=== PATIENT | female | born 1955 | race African-American/Black ===

== ENCOUNTER 2018-08-20 02:40 | Inpatient (IN) ==
[2018-08-20] MEDS ORDERED: Morphine Inj 4 MG/ML Vial IV.PUSH PRN (06:47)
[2018-08-20] MEDS ORDERED: Bisacodyl 10 MG Supp RECTAL PRN (06:47)
[2018-08-20] MEDS ORDERED: Esmolol 2,500 mg/250 mL Premix 2,500 MG/250 ML BAG IV.CONT PRN (06:58)
[2018-08-20] MEDS ORDERED: Sod Chloride 0.9% Inj 1,000 ML IV.CONT SCH (07:00)
[2018-08-20] MEDS ORDERED: Potassium Phosphate 500 MG Soluble Tablet PO PRN ×2 (07:10)
[2018-08-20] MEDS ORDERED: Potassium Phosphate Inj 30 MMOL in Sodium Chlor 0.9% Inj 250 ML IV.SIG PRN (07:10)
[2018-08-20] MEDS ORDERED: Magnesium Sulfate Inj 2 GM in Sodium Chlor 0.9% Inj 96 ML IV.SIG PRN (07:10)
[2018-08-20] MEDS ORDERED: Potassium Chloride 25 MEQ Effervescent Tablet PO PRN (07:10)
[2018-08-20] MEDS ORDERED: Magnesium Sulfate Inj 4 GM in Sodium Chlor 0.9% Inj 92 ML IV.SIG PRN (07:10)
[2018-08-20] MEDS ORDERED: Magnesium Oxide 400 MG Tablet PO PRN (07:10)
[2018-08-20] MEDS ORDERED: Potassium Chlor 40 mEq Premix 40 MEQ/100 ML PIGGYBACK IV.SIG PRN ×2 (07:10)
[2018-08-20] MEDS ORDERED: Sodium Phosphate Inj 30 MMOL in Sodium Chlor 0.9% Inj 250 ML IV.SIG PRN (07:10)
[2018-08-20] MEDS ORDERED: Potassium Chlor 20 mEq Premix 20 MEQ/100 ML PIGGYBACK IV.SIG PRN (07:10)
[2018-08-20] MEDS ORDERED: Dextrose 50% in Water 50 ML Vial IV.PUSH PRN (07:11)
--- NOTE | 2018-08-20 07:22 | P.HPCC ---
History of Present Illness Service: Critical care medicine Primary Care Physician: No Primary Care Physician Chief Complaint: Shortness of breath, lower extremity edema History of Present Illness: This is a 63-year-old AA female. Date of admission 08/20/2018. Past medical history includes hypothyroidism for the past 3 years and essential hypertension. Patient has been off her methimazole for the past 1 month. Patient presents to [facility] with a 2-3 history of worsening shortness of breath and lower extremity edema. When she arrived, patient was noted to be short of breath with a heart rate in the 200s possibly atrial fib versus SVT and altered mental status. Her thyroid storm score was positive at 50 with tachycardia, pulmonary edema, altered mental status. At that facility, patient did receive 10 mg diltiazem followed by 15 mg diltiazem and 20 mg per propranolol. Afterwards, patient was started on an esmolol drip CT pulmonary revealed no central pulmonary. Left greater than right pleural effusion. Mild pulmonary edema. Her troponin was slightly elevated at 0.12. Potassium is 3.0. Her TSH was less than 0.005. Free T4 is elevated along with free T3. She is currently being treated as thyroid storm. She is transported to [facility]. She will be transitioned to propylthiouracil, Lugol's iodine, hydrochlorothiazide and cholestyramine we will monitor closely in the intensive care unit - Diagnosis (1) Hyperthyroidism (2) Elevated troponin (3) Hypokalemia (4) Total bilirubin, elevated (5) Sinus tachycardia (6) Pulmonary edema (7) Lower extremity edema (8) Acute respiratory failure with hypoxia and hypercapnia Inpatient Certification: I certify that the inpatient services were ordered in accordance with Medicare regulations governing the order. This includes certification that hospital inpatient services are reasonable and necessary and in the case of services not specified as inpatient-only under 42 CFR 419.22(n), that they are appropriately provided as inpatient services in accordance to with the 2-midnight benchmark under 43 CFR 412.3(e) Estimated Total Length of Stay (Days): 5 Plans for Post Hospital Care: Not yet determined Review of Systems Constitutional: Reports anorexia, Reports body ache(s), Reports weight loss, Denies chills, Denies weight gain Eyes: Reports change in vision, Denies blind spots, Denies bulging eyes Ears, Nose, Mouth, and Throat: Reports bad breath, Reports poor balance, Denies abnormal hearing, Denies bleeding gums, Denies hearing loss Cardiovascular: Reports fast heart rate, Reports foot swelling, Reports shortness of breath, Reports shortness of breath with activity, Reports shortness of breath when lying down, Denies chest pain, Denies shortness of breath causing sudden awakening Respiratory: Reports chest congestion, Reports cough, Reports pain on inspiration, Reports shortness of breath, Reports shortness of breath with activity, Denies wheezing Gastrointestinal: Denies abdominal pain, Denies belching, Denies nausea, Denies vomiting Genitourinary: Denies abnormal periods Musculoskeletal: Reports abnormal walking, Denies back pain, Denies stiffness Skin/Breast: Denies bleeding lesions, Denies new lesions, Denies redness Neurologic: Reports lack of coordination, Reports weakness, Denies abnormal hearing, Denies loss of vision, Denies restless legs, Denies tremor(s) Psychiatric: Reports anxiety, Denies depression, Denies hopelessness Endocrine: Reports cold intolerance, Denies excessive sweating Hematologic/Lymphatic: Denies easy bleeding, Denies easy bruising Allergic/Immunologic: Reports GI upset with certain foods PMFSH - History History Provided By: Patient - Medical History Medical History: Medical History (Last Updated 08/20/18 @ 07:13 by Ryan Hansen MD) Essential hypertension Thyroid crisis or storm Hyperthyroidism - Surgical History Surgical History: Surgical History (Last Updated 08/20/18 @ 07:13 by Ryan Hansen MD) No pertinent past surgical history - Family History Family History: Family History (Last Updated 08/20/18 @ 07:14 by Ryan Hansen MD) Mother Heart disease - Tobacco History Second Hand Smoke Exposure: No Tobacco Use In Past 30 Days: No Smoking Status: Never smoker - Alcohol History How Often Do You Have a Drink Containing Alcohol: Never - Substance Use History Substance History: No History of Abuse Medications and Allergies Active Medications: Active Medications Acetaminophen (Tylenol) 650 mg PO Q6H PRN PRN Reason: Fever >101f Hydrocodone Bitart/Acetaminophen ([place] 5/325) 1 tab PO Q4H PRN PRN Reason: PAIN SCALE 1 TO 5 Al Hydroxide/Mg Hydroxide (Milk Of Magnesia Liq) 30 ml PO Q12H PRN PRN Reason: Mild Constipation Albuterol (Albuterol Neb (Prn)) 2.5 mg NEB Q2HR NEB PRN PRN Reason: SHORTNESS OF BREATH/WHEEZING Albuterol (Duoneb Neb (Jenny)) 1 ampul NEB Q4HR NEB JENNY Bisacodyl (Dulcolax Supp) 10 mg RECTAL DAILY PRN PRN Reason: SEVERE CONSITIPATION Chlorhexidine Gluconate (Chlorhexidine 2% Cloth) 3 pack TOPICAL DAILY@0400 JENNY Stop: 08/26/18 03:59 Chlorhexidine Gluconate (Chlorhexidine 2% Cloth) 3 pack TOPICAL DAILY@0400 PRN PRN Reason: Extra cloth needed Stop: 08/26/18 03:59 Cholestyramine Resin (Questran 4 Gm Pkt) 4 gm PO BID JENNY Dextrose (D50w Vial) 50 ml IV.PUSH UNSCH PRN PRN Reason: PER HYPOGLYCEMIA PROTOCOL Furosemide (Lasix Inj) 20 mg IV.PUSH ONCE ONE Stop: 08/20/18 07:13 Glucagon (Glucagon Inj) 1 mg OTHER PRN PRN PRN Reason: for Hypoglycemia Protocol Heparin Sodium (Porcine) (Heparin Inj) 5,000 units SQ Q12H JENNY Hydrocortisone Sodium Succinate (Solucortef Inj) 100 mg IV.PUSH Q8HR JENNY Sodium Chloride (Ns Inj) 1,000 mls @ 84 mls/hr IV.CONT .[id number] JENNY Esmolol HCl (Brevibloc 2,500 Mg/Ns 250 Ml Premix) 2,500 mg in 250 mls @ 8.175 mls/hr IV.CONT TITRATE PRN; Protocol PRN Reason: Per Protocol Magnesium Sulfate 4 gm/ Sodium (Chloride) 100 mls @ 50 mls/hr IV.SIG UNSCH PRN PRN Reason: For Magnesium 0.9 - 1.1 mg/dL Magnesium Sulfate 2 gm/ Sodium (Chloride) 100 mls @ 50 mls/hr IV.SIG UNSCH PRN PRN Reason: For Magnesium 1.2 - 1.6 mg/dL Potassium Chloride (Kcl 40 Meq Premix Inj) 40 meq in 100 mls @ 25 mls/hr IV.SIG Q2H PRN PRN Reason: For Potassium 2.8 - 3.2 mEq/L Potassium Chloride (Kcl 20 Meq Premix Inj) 20 meq in 100 mls @ 50 mls/hr IV.SIG Q2H PRN PRN Reason: For Potassium 3.3 - 3.5 mEq/L Potassium Chloride (Kcl 40 Meq Premix Inj) 40 meq in 100 mls @ 25 mls/hr IV.SIG UNSCH PRN PRN Reason: For Potassium 3.3 - 3.5 mEq/L Potassium Chloride (Kcl 20 Meq Premix Inj) 20 meq in 100 mls @ 50 mls/hr IV.SIG Q2H PRN PRN Reason: For Potassium 2.8 - 3.2 mEq/L Potassium Phosphate 30 mmol/ (Sodium Chloride) 260 mls @ 42 mls/hr IV.SIG UNSCH PRN PRN Reason: SEE LABEL COMMENTS Sodium Phosphate 30 mmol/ (Sodium Chloride) 260 mls @ 42 mls/hr IV.SIG UNSCH PRN PRN Reason: For Phosphorus < 2.5 mg/dL Insulin Aspart (Novolog Insulin Correctional Sugar Inj) 0 unit SQ Q6HR EJNNY; Protocol Iodine/Potassium Iodide (Lugol's (Strong Iodine) 1 Ml) 5 drop PO TID JENNY Lactulose (Lactulose Liq) 30 ml PO DAILY PRN PRN Reason: SEVERE CONSITIPATION Magnesium Oxide (Mag-Ox) 800 mg PO UNSCH PRN PRN Reason: For Magnesium 1.2 - 1.6 mg/dL Morphine Sulfate (Morphine Inj) 2 mg IV.PUSH Q2H PRN PRN Reason: PAIN SCALE 6 TO 10 Nitroglycerin (Nitro-Bid 2% Oint) 2 inch TOPICAL Q6HR PRN PRN Reason: Sbp>165, Dbp>90 Ondansetron HCl (Zofran Inj) 4 mg IV.PUSH Q6H PRN PRN Reason: NAUSEA OR VOMITING Pantoprazole Sodium (Protonix) 40 mg PO DAILY [facility] Potassium Bicarb/Potassium Chloride (K-Lyte Cl Eff) 50 meq PO UNSCH PRN PRN Reason: For Potassium 3.3 - 3.5 mEq/L Potassium Chloride (Klor-Con 10) 30 meq PO BID [facility] Stop: 08/20/18 21:01 Potassium Phosphate (K-Phos Original) 2,000 mg PO Q4H PRN PRN Reason: Phosphorus Less Than 2.5 mg/dL Potassium Phosphate (K-Phos Original) 2,000 mg PO UNSCH PRN PRN Reason: SEE LABEL COMMENTS Propranolol HCl (Inderal) 60 mg PO Q6H [facility] Propylthiouracil (Ptu) 100 mg PO TID JENNY Senna/Docusate Sodium (Paula-Colace) 1 tab PO BID JENNY Sennosides (Senokot) 17.2 mg PO Q12H PRN PRN Reason: Moderate Constipation Sodium Chloride (Ns Flush) 2 ml IV.FLUSH BID JENNY Sodium Chloride (Ns Flush) 2 ml IV.FLUSH PRN PRN PRN Reason: FLUSH AFTER USING IV ACCESS Allergies Allergy/AdvReac Type Severity Reaction Status Date / Time No Known Allergies Allergy Verified 08/20/18 02:57 Home Medications Medication Instructions Recorded Confirmed Type methimazole 5 mg PO DAILY 08/20/18 08/20/18 History Exam Vital signs: Intake & Output 08/19/18 08/20/18 08/20/18 18:59 06:59 18:59 Weight 54.5 kg Other: Weight On Admission 54.5 kg - Constitutional mild distress - Routine HEENT Exam Head: Present: normocephalic, atraumatic Eye: Present: EOMI, PERRL, normal accommodation. Absent: conjunctival icterus ENT: Present: mucous membranes moist - Routine Neck Exam Present: supple, full ROM. Absent: JVD, carotid bruit - Routine Chest/Breast/Axilla Exam Chest wall: Absent: tenderness Breast: Absent: tenderness Axillae: Absent: lymphadenopathy - Routine Respiratory Exam Present: accessory muscle use, rhonchi. Absent: prolonged expiratory phase, distant breath sounds - Routine Cardiovascular Exam Present: RRR, S1, S2. Absent: murmur - Routine Abdominal Exam Present: soft, normoactive bowel sounds. Absent: tenderness - Routine Extremities Exam Present: edema. Absent: cyanosis, clubbing - Routine Skin Exam Present: intact - Routine Neurological Exam Present: alert, oriented X3, CN II-XII intact. Absent: sensory deficit, motor deficit Septic Shock Reassessment Septic shock perfusion: reassessment completed Caprini VTE Risk Assessment Caprini VTE Risk Assessment: Moderate/High Risk (score >= 2) Caprini Risk Assessment Model: Point Value = 1 Point Value = 2 Point Value = 3 Point Value = 5 Age 41-60 Minor surgery BMI > 25 kg/m2 Swollen legs Varicose veins or History of unexplained or recurrent spontaneous Oral contraceptives or hormone replacement Sepsis (< 1 month) Serious lung disease, including pneumonia (< 1 month) Abnormal pulmonary function Acute myocardial infarction Congestive heart failure (< 1 month) History of inflammatory bowel disease Medical patient at bed rest Age 61-74 Arthroscopic surgery Major open surgery (> 45 min) Laparoscopic surgery (> 45 min) Malignancy Confined to bed (> 72 hours) Immobilizing plaster cast Central venous access Age >= 75 History of VTE Family history of VTE Factor V Leiden Prothrombin [id number] Lupus anticoagulant Anticardiolipin antibodies Elevated serum homocysteine Heparin-induced thrombocytopenia Other congenital or acquired thrombophilia Stroke (< 1 month) Elective arthroplasty Hip, pelvis, or leg fracture Acute spinal cord injury (< 1 month) Prophylaxis Regimen: Total Risk Factor Score Risk Level Prophylaxis Regimen 0-1 Low Early ambulation 2 Moderate Order ONE of the following: *Sequential Compression Device (SCD) *Heparin 5000 units SQ BID 3-4 Higher Order ONE of the following medications: *Heparin 5000 units SQ TID *Enoxaparin/Lovenox 40 mg SQ daily (WT < 150 kg, CrCl > 30 mL/min) *Enoxaparin/Lovenox 30 mg SQ daily (WT < 150 kg, CrCl > 10-29 mL/min) *Enoxaparin/Lovenox 30 mg SQ BID (WT < 150 kg, CrCl > 30 mL/min) AND/OR *Sequential Compression Device (SCD) 5 or more Highest Order ONE of the following medications: *Heparin 5000 units SQ TID (Preferred with Epidurals) *Enoxaparin/Lovenox 40 mg SQ daily (WT < 150 kg, CrCl > 30 mL/min) *Enoxaparin/Lovenox 30 mg SQ daily (WT < 150 kg, CrCl > 10-29 mL/min) *Enoxaparin/Lovenox 30 mg SQ BID (WT < 150 kg, CrCl > 30 mL/min) AND *Sequential Compression Device (SCD) Assessment and Plan - Problem List (1) Hyperthyroidism Code(s): E05.90 - Thyrotoxicosis, unspecified without thyrotoxic crisis or storm Status: Acute (2) Elevated troponin Code(s): R74.8 - Abnormal levels of other serum enzymes Status: Acute (3) Hypokalemia Code(s): E87.6 - Hypokalemia Status: Acute (4) Total bilirubin, elevated Code(s): R17 - Unspecified jaundice Status: Acute (5) Sinus tachycardia Code(s): R00.0 - Tachycardia, unspecified Status: Acute (6) Pulmonary edema Code(s): J81.1 - Chronic pulmonary edema Status: Acute (7) Lower extremity edema Code(s): R60.0 - Localized edema Status: Acute (8) Acute respiratory failure with hypoxia and hypercapnia Code(s): J96.01 - Acute respiratory failure with hypoxia; J96.02 - Acute respiratory failure with hypercapnia Status: Acute - Assessment and Plan Plan: Neuro/Psych: Acetaminophen 650 mg p.o. every 6 hours as needed fever Hydrocodone/acetaminophen 5/325 1 tablet every 4 hours as needed pain 1 through 5 Morphine sulfate 2 mg IV every 2 hours as needed pain 6-10 CV: Sinus tachycardia Elevated troponin History of essential hypertension With thyroid femoral start on propranolol 60 mg p.o. every 6 hours and transition off esmolol drip As needed Nitropaste and when heart rate improves hydralazine and labetalol Check 2D echocardiogram Repeat troponin at 1500 hrs. and recheck EKG Elevated troponin likely secondary to strain secondary to tachycardia Resp: Acute respiratory failure secondary to pulmonary edema Currently on partial nonrebreather mask. Wean to maintain saturations greater than equal 92% Incentive spirometry while awake Albuterol/ipratropium aerosols every 4 hours with albuterol aerosols every 2 hours as needed dyspnea CT pulmonary angiogram revealed left greater than right pleural effusion. Pulmonary edema. Possible infiltrate in the right side. Follow-up chest x-ray in a.m. 08/21 GI: Total bilirubin We will place on regular diet. Pantoprazole for GI prophylaxis Docusate sodium/senna 1 tablet twice daily for bowel regimen : Straight cath as needed Endo: Thyroid storm History of hyperthyroidism TSH was less than 0.005. Free T4 was 3.49. Total T3 is pending We will place on propylthiouracil 100 mg 3 times daily with Lugol's iodine 5 drops 3 times daily 1 hour after propylthiouracil given Hydrocortisone 100 mg IV every 8 hours Cholestyramine 4 g by mouth twice daily Monitor symptomatology Renal: Creatinine currently within normal limits Monitor urine output Accurate I's and O's Heme: CBC currently within normal limits No indication for transfusion of blood products at this time ID: Monitor for signs and symptomatology infection Blood cultures x2, UA pending FEN: Acute hypokalemia 60 mEq p.o. potassium chloride given now. ICU electrolyte protocol initiated We will give 3 g IV magnesium currently MSK: Lower extremity edema Bilateral Doppler ultrasound pending Physical therapy evaluate and treat Received 20 mg IV furosemide x1 Access: -Utilize peripheral IV. Central line if indicated Prophylaxis -GI -pantoprazole -DVT-SCD/heparin subcu Level 3 admission H&P: Quality - VTE Deep Vein Thrombosis/Pulmonary Embolism Present on Admission: No
[2018-08-20] MEDS ORDERED: hydrALAZINE HCl Inj 20 MG/ML Vial IV.PUSH PRN (07:37)
[2018-08-20] MEDS ORDERED: Magnesium Sulfate Inj 4 GM in Sodium Chlor 0.9% Inj 92 ML IV.SIG ONE (08:00)
[2018-08-20] MEDS: Senna/Docusate Sodium 8.6/50 MG Tablet PO SCH ×2 (08:14→21:30)
[2018-08-20] MEDS: Heparin - SQ 10,000 UNITS/ML Vial SQ SCH ×2 (08:15→18:12)
[2018-08-20] MEDS: Potassium Chlor 20 mEq Premix 20 MEQ/100 ML PIGGYBACK IV.SIG PRN ×4 (08:16→15:28)
--- NOTE | 2018-08-20 10:07 | US ---
EXAM DATE: 08/20/2018 10:03 AM EDT AGE/SEX: 63 years / Female INDICATIONS: Bilateral leg swelling. CLINICAL DATA: This is the patient's initial encounter. Patient reports that signs and symptoms have been present for 1 day and indicates a pain score of 0/10. MEDICAL/SURGICAL HISTORY: Hypertension. Hyperthyroidism. Thyroid crisis or storm. None. COMPARISON: No prior exams available for comparison. TECHNIQUE: Venous ultrasound of both lower extremities was performed from the inguinal ligament to t he proximal calf. Real-time, color Doppler and spectral tracing, compression and augmentation techni ques were used. FINDINGS: Right Leg: Normal compression of the deep venous system from the inguinal region to the proximal gerry f. No echogenic clot is seen. Normal response of the venous system to augmentation and respiration. Left Leg: Normal compression of the deep venous system from the inguinal region to the proximal calf . No echogenic clot is seen. Normal response of the venous system to augmentation and respiration. Other: None. CONCLUSION: No venous thrombosis is identified within either lower extremity. Electronically signed by: Filippo Rodriguez MD 08/20/2018 10:06 AM EDT
[2018-08-20] MEDS: Propranolol 40 MG Tablet PO SCH ×4 (10:08→21:29)
--- NOTE | 2018-08-20 11:19 | ECHRPT ---
Indication: heart failure CONCLUSIONS Normal left ventricular size. Wall thickness is normal. The left ventricular systolic function is severely reduced with an estimated ejection fraction in th e range of 20-25%. The left atrial size is [id number] dilated. Moderate mitral valve regurgitation. Mild aortic valve regurgitation. The estimated pulmonary arterial pressure is 27 mmHg. There is a small pericardial effusion present. A moderate left sided pleural effusion is noted. BP: / HR: Rhythm: MEASUREMENTS (Male / Female) Normal Values Technical Quality:Very technically difficult study 2D ECHO LV Diastolic Diameter PLAX 4.7 cm 4.2 - 5.9 / 3.9 - 5.3 cm LV Systolic Diameter PLAX 4.4 cm IVS Diastolic Thickness 1.0 cm 0.6 - 1.0 / 0.6 - 0.9 cm LVPW Diastolic Thickness 1.2 cm 0.6 - 1.0 / 0.6 - 0.9 cm LV Relative Wall Thickness 0.5 RV Internal Dim ED PLAX 2.3 cm LVOT Diameter 2.1 cm Aortic Root Diameter 2.6 cm LA Systolic Diameter LX 3.7 cm 3.0 - 4.0 / 2.7 - 3.8 cm LV Ejection Fraction MOD 4C 26.3 % LV Ejection Fraction 4C AL 28.6 % M-MODE Aortic Root Diameter MM 3.2 cm LA Systolic Diameter MM 4.3 cm LA Ao Ratio MM 1.3 AV Cusp Separation MM 1.4 cm DOPPLER AV Peak Velocity 66.9 cm/s AV Peak Gradient 1.8 mmHg LVOT Peak Velocity 40.0 cm/s LVOT Peak Gradient 0.6 mmHg AV Area Cont Eq pk 2.1 cm Mitral E Point Velocity 74.5 cm/s TR Peak Velocity 208.0 cm/s TR Peak Gradient 17.3 mmHg Right Atrial Pressure 10.0 mmHg Pulmonary Artery Systolic Pressu 27.3 mmHg Right Ventricular Systolic Press 27.3 mmHg PV Peak Velocity 59.0 cm/s PV Peak Gradient 1.4 mmHg FINDINGS LEFT VENTRICLE Normal left ventricular size. Wall thickness is normal. The left ventricular systolic function is severely reduced with an estimated ejection fraction in th e range of 20-25%. LEFT ATRIUM The left atrial size is [id number] dilated. MITRAL VALVE Moderate mitral valve regurgitation. AORTIC VALVE Mild aortic valve regurgitation. TRICUSPID VALVE The estimated pulmonary arterial pressure is 27 mmHg. PERICARDIUM There is a small pericardial effusion present. A moderate left sided pleural effusion is noted. Megha Anderson MD, FACC (Electronically Signed) Final Date:20 August 2018 11:18
[2018-08-20] MEDS: IODINE PO SCH ×3 (11:56→18:12)
[2018-08-20] MEDS: [UNRECOGNIZED DRUG - OTHER] PO SCH ×3 (11:56→18:12)
[2018-08-20] MEDS: Insulin NovoLOG Aspart Correctional Sugar Inj SQ SCH ×2 (12:32→17:27)
--- NOTE | 2018-08-20 14:11 | ECG ---
Date Performed: 08/20/2018 Time Performed: 03:10:34 PTAGE: 63 years EKG: SINUS TACHYCARDIA WITH OCCASIONAL SUPRAVENTRICULAR PREMATURE COMPLEXES NONSPECIFIC T-WAVE A BNORMALITY ABNORMAL RHYTHM ECG PREVIOUS TRACING : 08/20/2018 02.53 Compared to previous tracing, Sinus tachycardia has replace d Atrial fibrillation vs atrial tachycardia DOCTOR: Fidel Rubio Interpretating Date/Time 08/20/2018 14:10:54
[2018-08-20] MEDS: Hydrocortisone Sod Succinate 100 MG Vial IV.PUSH SCH ×2 (14:36→21:30)
[2018-08-20] MEDS: Acetaminophen 325 MG Tablet PO PRN (23:28)
[2018-08-20 23:49] LABS: Calcium 8.7 mg/dL (8.5-10.1); Carbon Dioxide 18.4 meq/L (21.0-32.0); Magnesium 2.6 mg/dL (1.5-2.5); Phosphorus 3.7 mg/dL (2.5-4.9)
[2018-08-20 23:56] LABS: Potassium 6.7 meq/L (3.5-5.1)
[2018-08-21] MEDS ORDERED: Sodium Bicarbonate 8.4% Inj 50 MEQ/50 ML Syringe IV.PUSH ONE ×2 (00:05→03:09)
[2018-08-21] MEDS ORDERED: Dextrose 50% in Water 50 ML Vial IV.PUSH ONE (00:07)
[2018-08-21] MEDS: Insulin NovoLOG Aspart Correctional Sugar Inj SQ SCH ×5 (00:21→22:50)
[2018-08-21] MEDS ORDERED: Sodium Polystyrene Sulfonate/Sorbitol Liq 15 GM/60 ML UDC PO ONE (03:08)
[2018-08-21] MEDS: Propranolol 40 MG Tablet PO SCH ×4 (03:24→22:42)
[2018-08-21] MEDS ORDERED: Chlorhexidine Gluconate 2% 1 Pack (2 Cloths) TOPICAL PRN (04:00)
[2018-08-21] MEDS: Chlorhexidine Gluconate 2% 1 Pack (2 Cloths) TOPICAL SCH (04:35)
[2018-08-21 05:09] LABS: Hematocrit 37.9 % (35.0-46.0); Hemoglobin 12.9 gm/dL (11.6-15.3); Mean Corpuscular Hemoglobin 28.5 pg (27.0-34.0); Mean Corpuscular Volume 83.7 fL (80.0-100.0); Mean Platelet Volume 10.6 fL (7.0-11.0); Platelet Count 153 th/mm3 (150-450); Red Blood Count 4.53 mil/mm3 (4.00-5.30); Red Cell Distribution Width 15.1 % (11.6-17.2); White Blood Count 9.8 th/mm3 (4.0-11.0)
[2018-08-21 05:29] LABS: Activated Partial Thrombo Time 24.8 sec (24.3-30.1); INR 1.4 Ratio
[2018-08-21 05:32] LABS: Albumin 3.3 g/dL (3.4-5.0); Anion Gap 9 meq/L (5-15); Aspartate Aminotransferase 165 U/L (15-37); Blood Urea Nitrogen 35 mg/dL (7-18); Calcium 8.3 mg/dL (8.5-10.1); Carbon Dioxide 26.8 meq/L (21.0-32.0); Chloride 108 meq/L (98-107); Glomerular Filtration Rate 45 mL/min (>89); Glucose,Random 217 mg/dL (74-106); Magnesium 2.3 mg/dL (1.5-2.5); Sodium 144 meq/L (136-145)
[2018-08-21 05:37] LABS: Alanine Aminotransferase 155 U/L (10-53); Alkaline Phosphatase 75 U/L (45-117); Phosphorus 3.2 mg/dL (2.5-4.9); Total Protein 6.6 g/dL (6.4-8.2)
[2018-08-21] MEDS: Hydrocortisone Sod Succinate 100 MG Vial IV.PUSH SCH ×3 (05:49→22:42)
[2018-08-21] MEDS: Heparin - SQ 10,000 UNITS/ML Vial SQ SCH ×2 (06:02→18:05)
[2018-08-21 07:37] LABS: Lymphocytes 8 % (9-44)
[2018-08-21 07:38] LABS: Acanthocytes Occ; Ovalocytes 2+
--- NOTE | 2018-08-21 09:05 | P.PNCC ---
Subjective Subjective Remarks/Hospital Course: This is a 63-year-old AA female. Date of admission 08/20/2018. Past medical history includes hypothyroidism for the past 3 years and essential hypertension. Patient has been off her methimazole for the past 1 month. Patient presents to [facility] with a 2-3 history of worsening shortness of breath and lower extremity edema. When she arrived, patient was noted to be short of breath with a heart rate in the 200s possibly atrial fib versus SVT and altered mental status. Her thyroid storm score was positive at 50 with tachycardia, pulmonary edema, altered mental status. At that facility, patient did receive 10 mg diltiazem followed by 15 mg diltiazem and 20 mg per propranolol. Afterwards, patient was started on an esmolol drip CT pulmonary revealed no central pulmonary. Left greater than right pleural effusion. Mild pulmonary edema. Her troponin was slightly elevated at 0.12. Potassium is 3.0. Her TSH was less than 0.005. Free T4 is elevated along with free T3. She is currently being treated as thyroid storm. She is transported to [facility]. She will be transitioned to propylthiouracil, Lugol's iodine, hydrocortisone and cholestyramine we will monitor closely in the intensive care unit SUBJECTIVE: 08/21: Patient's heart rate and blood pressure much improved today. Currently on nasal cannula. Restarting Lugol's iodine. Will monitor closely in the intensive care unit for another couple of days. Hyperkalemia has been treated. Objective Vital Signs / I&O: Vital Signs 08/20/18 10:00 08/20/18 11:00 08/20/18 12:00 Temperature 100.2 F H Pulse Rate 99 H 86 Respiratory Rate 34 H 35 H Blood Pressure 167/94 H 138/93 H 135/82 Pulse Oximetry 100 99 08/20/18 12:03 08/20/18 14:30 08/20/18 14:45 Temperature 99.3 F 99.3 F Pulse Rate 82 75 75 Respiratory Rate 18 32 H Blood Pressure 126/78 Pulse Oximetry 93 L 93 L 08/20/18 15:00 08/20/18 15:15 08/20/18 15:30 Temperature 99.3 F 99.3 F 99.3 F Pulse Rate 75 75 76 Respiratory Rate 31 H 32 H 36 H Blood Pressure 124/81 123/87 123/83 Pulse Oximetry 94 L 93 L 94 L 08/20/18 15:45 08/20/18 16:00 08/20/18 16:15 Temperature 99.3 F 99.5 F 99.5 F Pulse Rate 76 77 75 Respiratory Rate 34 H 33 H Blood Pressure 127/73 132/89 131/86 Pulse Oximetry 93 L 92 L 92 L 08/20/18 16:30 08/20/18 16:45 08/20/18 17:00 Temperature 99.5 F 99.3 F 99.3 F Pulse Rate 77 77 76 Respiratory Rate Blood Pressure 126/95 H 128/90 Pulse Oximetry 93 L 91 L 96 08/20/18 17:01 08/20/18 17:15 08/20/18 17:30 Temperature 99.5 F 99.3 F 99.1 F Pulse Rate 77 77 78 Respiratory Rate Blood Pressure 120/88 134/78 128/84 Pulse Oximetry 92 L 91 L 98 08/20/18 17:45 08/20/18 18:00 08/20/18 18:15 Temperature 99.1 F 99.1 F 99.0 F Pulse Rate 79 79 79 Respiratory Rate Blood Pressure 149/89 H 137/84 144/89 H Pulse Oximetry 92 L 93 L 93 L 08/20/18 18:30 08/20/18 18:45 08/20/18 19:00 Temperature 99.1 F 99.1 F 99.0 F Pulse Rate 81 82 80 Respiratory Rate Blood Pressure 137/79 136/80 134/83 Pulse Oximetry 94 L 94 L 94 L 08/20/18 19:15 08/20/18 19:30 08/20/18 19:45 Temperature 99.1 F 99.5 F 99.5 F Pulse Rate 104 H 81 80 Respiratory Rate Blood Pressure 145/91 H 130/79 143/75 H Pulse Oximetry 94 L 95 94 L 08/20/18 20:00 08/20/18 20:01 08/20/18 20:15 Temperature 99.5 F 99.5 F Pulse Rate 82 81 83 Respiratory Rate 18 Blood Pressure 153/94 H 142/89 H Pulse Oximetry 94 L 93 L 100 08/20/18 20:30 08/20/18 20:45 08/20/18 21:00 Temperature 99.7 F H 99.9 F H 99.9 F H Pulse Rate 84 84 84 Respiratory Rate Blood Pressure 143/95 H 144/90 H 144/87 H Pulse Oximetry 99 94 L 100 08/20/18 21:15 08/20/18 21:30 08/20/18 21:45 Temperature 99.9 F H 100.2 F H 100.0 F H Pulse Rate 94 H 87 85 Respiratory Rate Blood Pressure 142/91 H 141/91 H 139/93 H Pulse Oximetry 94 L 93 L 92 L 08/20/18 22:00 08/20/18 22:15 08/20/18 22:30 Temperature 100.0 F H 100.4 F H 100.0 F H Pulse Rate 87 86 86 Respiratory Rate 32 H 36 H 36 H Blood Pressure 144/95 H 142/94 H 149/95 H Pulse Oximetry 91 L 92 L 94 L 08/20/18 22:45 08/20/18 23:00 08/20/18 23:15 Temperature 100.4 F H 100.8 F H 100.8 F H Pulse Rate 86 85 86 Respiratory Rate 38 H 38 H 38 H Blood Pressure 142/95 H 153/95 H Pulse Oximetry 93 L 92 L 94 L 08/20/18 23:30 08/20/18 23:45 08/21/18 00:00 Temperature 100.8 F H 100.6 F H 100.6 F H Pulse Rate 85 84 82 Respiratory Rate 37 H 18 36 H Blood Pressure 144/95 H 139/92 H 139/93 H Pulse Oximetry 94 L 94 L 93 L 08/21/18 00:15 08/21/18 00:30 08/21/18 00:45 Temperature 100.6 F H 100.2 F H 99.9 F H Pulse Rate 82 80 84 Respiratory Rate 36 H 36 H 47 H Blood Pressure 138/93 H 142/86 H 146/87 H Pulse Oximetry 93 L 94 L 94 L 08/21/18 01:00 08/21/18 01:15 08/21/18 01:22 Temperature 99.5 F 99.3 F Pulse Rate 87 82 81 Respiratory Rate 61 H 24 Blood Pressure 173/92 H 127/65 Pulse Oximetry 94 L 98 08/21/18 01:30 08/21/18 01:45 08/21/18 02:00 Temperature 99.1 F 98.8 F 98.8 F Pulse Rate 80 80 86 Respiratory Rate 21 21 37 H Blood Pressure 125/65 115/62 149/90 H Pulse Oximetry 100 100 99 08/21/18 02:16 08/21/18 02:17 08/21/18 02:30 Temperature 99.0 F 99.0 F 99.1 F Pulse Rate 89 88 91 H Respiratory Rate 25 H 30 H 29 H Blood Pressure 178/107 H 164/97 H 166/99 H Pulse Oximetry 89 L 90 L 92 L 08/21/18 02:45 08/21/18 03:00 08/21/18 03:15 Temperature 99.5 F 99.9 F H 100.0 F H Pulse Rate 90 90 90 Respiratory Rate 31 H 35 H 35 H Blood Pressure 153/87 H 162/96 H 153/94 H Pulse Oximetry 92 L 91 L 100 08/21/18 03:30 08/21/18 03:45 08/21/18 04:00 Temperature 100.2 F H 100.0 F H 99.9 F H Pulse Rate 90 93 H 94 H Respiratory Rate 33 H 30 H 31 H Blood Pressure 152/92 H 155/89 H 162/93 H Pulse Oximetry 96 94 L 96 08/21/18 04:15 08/21/18 04:26 08/21/18 04:30 Temperature 99.7 F H 99.9 F H 99.9 F H Pulse Rate 93 H 89 86 Respiratory Rate 29 H 26 H 26 H Blood Pressure 168/105 H 164/81 H 148/73 H Pulse Oximetry 94 L 98 98 08/21/18 04:45 08/21/18 05:00 08/21/18 05:15 Temperature 99.7 F H 99.7 F H 99.9 F H Pulse Rate 92 H 92 H 91 H Respiratory Rate 40 H 26 H 25 H Blood Pressure 166/91 H 155/85 H 151/82 H Pulse Oximetry 96 97 96 08/21/18 05:30 08/21/18 05:45 08/21/18 06:00 Temperature 99.9 F H 99.9 F H 100.2 F H Pulse Rate 93 H 92 H 97 H Respiratory Rate 24 26 H 35 H Blood Pressure 153/93 H 156/93 H 159/92 H Pulse Oximetry 95 94 L 93 L 08/21/18 06:15 08/21/18 07:00 08/21/18 08:00 Temperature 100.0 F H 100.4 F H 99.7 F H Pulse Rate 96 H 91 H 84 Respiratory Rate 29 H 28 H 20 Blood Pressure 157/96 H 150/89 H 127/71 Pulse Oximetry 94 L 97 100 08/21/18 08:14 Temperature Pulse Rate 83 Respiratory Rate 16 Blood Pressure Pulse Oximetry 99 Intake & Output 08/20/18 08/21/18 08/21/18 18:59 06:59 18:59 Intake Total 1600 / 1600 1300 / 1300 0 / 0 Output Total 500 / 500 0 / 0 Balance 1600 / 1600 800 / 800 0 / 0 Weight 54.5 kg Intake: IV 700 / 700 NS Inj 1,000 ML @ 84 mls/hr IV. 200 / 200 CONT .[id number] VIVEK Rx#:[id number] Magnesium Sulfate Inj 4 GM In 100 / 100 NS Inj 92 ML @ 25 mls/hr IV.SIG ONCE ONE Rx#:[id number] KCl 20 mEq Premix Inj 20 meq In 400 / 400 100 ml @ 50 mls/hr IV.SIG Q2H PRN Rx#:[id number] Oral 900 / 900 600 / 600 0 / 0 Oral Supplement 100 / 100 Other 600 / 600 Output: Urine 0 / 0 Urine Amount (Catheter) 500 / 500 0 / 0 Female External 500 / 500 0 / 0 Other: # Voids 2 # Incontinent Voids 3 0 Date of Last Bowel Movement 08/21/18 # Bowel Movements 0 0 0 # Incontinent Bowel Movements 1 Result Diagrams: 08/21/18 04:40 08/21/18 04:40 Imaging: Venous Doppler Study 08/20/18 00:00 CONCLUSION: No venous thrombosis is identified within either lower extremity. Objective Remarks: GENERAL: 63-year-old [facility] female currently resting in bed in no acute distress on nasal cannula SKIN: Warm and dry. No rash HEAD: Atraumatic. Normocephalic. EYES: Pupils equal and round about 3 members bilaterally reactive. No scleral icterus. No injection or drainage. ENT: No nasal bleeding or discharge. Mucous membranes pink and moist. NECK: Trachea midline. No JVD. CARDIOVASCULAR: Regular rate and rhythm. S1, S2. No S4. RESPIRATORY: Few crackles appreciated bases. No wheezing.. GASTROINTESTINAL: Abdomen soft, non-tender, nondistended. Hepatic and splenic margins not palpable. MUSCULOSKELETAL: Extremities without significant peripheral edema. No obvious deformities. NEUROLOGICAL: Awake and alert. No obvious cranial nerve deficits. Motor grossly within normal limits. Five out of 5 muscle strength in the arms and legs. Normal speech. Assessment and Plan - Problem List (1) Hyperthyroidism Code(s): E05.90 - Thyrotoxicosis, unspecified without thyrotoxic crisis or storm Status: Acute (2) Elevated troponin Code(s): R74.8 - Abnormal levels of other serum enzymes Status: Acute (3) Hypokalemia Code(s): E87.6 - Hypokalemia Status: Resolved (4) Total bilirubin, elevated Code(s): R17 - Unspecified jaundice Status: Acute (5) Sinus tachycardia Code(s): R00.0 - Tachycardia, unspecified Status: Acute (6) Pulmonary edema Code(s): J81.1 - Chronic pulmonary edema Status: Acute (7) Lower extremity edema Code(s): R60.0 - Localized edema Status: Acute (8) Acute respiratory failure with hypoxia and hypercapnia Code(s): J96.01 - Acute respiratory failure with hypoxia; J96.02 - Acute respiratory failure with hypercapnia Status: Acute - Assessment and Plan Plan: Neuro/Psych: Acetaminophen 650 mg p.o. every 6 hours as needed fever Hydrocodone/acetaminophen 5/325 1 tablet every 4 hours as needed pain 1 through 5 Morphine sulfate 2 mg IV every 2 hours as needed pain 6-10 CV: Acute systolic heart failure ejection fraction 20-25% Elevated troponin History of essential hypertension Very small pericardial effusion With thyroid femoral start on propranolol 60 mg p.o. every 6 hours and transition off esmolol drip As needed Nitropaste and when heart rate improves hydralazine and labetalol Check 2D echocardiogram -EF 20-25%. Left atrial enlargement. MRJerome PAP 27 mmHg. Repeat troponin now and recheck EKG Elevated troponin likely secondary to strain secondary to tachycardia Heart failure likely secondary to underlying thyrotoxicosis. Resp: Acute respiratory failure secondary to pulmonary edema/left pleural effusion Currently on nasal cannula. Wean to maintain saturations greater than equal 92% Incentive spirometry while awake Albuterol/ipratropium aerosols every 4 hours with albuterol aerosols every 2 hours as needed dyspnea CT pulmonary angiogram revealed left greater than right pleural effusion. Pulmonary edema. Possible infiltrate in the right side. Follow-up chest x-ray in a.m. 08/22 GI: Total bilirubin Hypoalbuminemia We will place on regular diet. Pantoprazole for GI prophylaxis Docusate sodium/senna 1 tablet twice daily for bowel regimen Liver ultrasound, CPK and hepatitis panel pending Monitor transaminases while on propylthiouracil. : Straight cath as needed Endo: Thyroid storm History of hyperthyroidism TSH was less than 0.005. Free T4 was 3.49. Total T3 was normal at [address] on propylthiouracil 100 mg 3 times daily with Lugol's iodine 5 drops 3 times daily 1 hour after propylthiouracil given Hydrocortisone 100 mg IV every 8 hours Cholestyramine 4 g by mouth twice daily Monitor symptomatology Renal: Acute kidney injury Creatinine currently slowly trending upward. Monitor urine output Accurate I's and O's Recheck creatinine in a.m. 08/22 Heme: CBC currently within normal limits No indication for transfusion of blood products at this time ID: Pyrexia possibly secondary to thyrotoxicosis Monitor for signs and symptomatology infection Blood cultures x2, UA pending FEN: Acute hyperkalemia Hyper magnesium Monitor electrolytes and replace as clinically indicated Remove magnesium products from [facility] MSK: Lower extremity edema Bilateral Doppler ultrasound revealed no underlying deep venous thrombosis Physical therapy evaluate and treat Access: -Utilize peripheral IV. Central line if indicated Prophylaxis -GI -pantoprazole -DVT-SCD/heparin subcu 3 follow-up
[2018-08-21] MEDS: Senna/Docusate Sodium 8.6/50 MG Tablet PO SCH ×2 (09:31→22:42)
[2018-08-21] MEDS: [UNRECOGNIZED DRUG - OTHER] PO SCH ×3 (09:31→18:05)
[2018-08-21] MEDS: IODINE PO SCH ×3 (09:31→18:05)
--- NOTE | 2018-08-21 11:58 | US ---
EXAM DATE: 08/21/2018 11:55 AM EDT AGE/SEX: 63 years / Female INDICATIONS: Abnormal labs. CLINICAL DATA: This is the patient's initial encounter. Patient reports that signs and symptoms have been present for 3 days and indicates a pain score of 4/10. MEDICAL/SURGICAL HISTORY: Hypertension. Hypothyroidism. None. COMPARISON: No prior exams available for comparison. MEASUREMENTS: Liver:__ 16.1 cm. Common Bile Duct:__ 3mm. Right Kidney:__ 8.3 x 4.5 x 4.0 cm. FINDINGS: Liver: Normal echotexture without focal lesion or ductal dilatation. Portal Vein: Hepatopedal flow seen in portal vein. Common Duct: No intraluminal mass or stone visualized. Gallbladder: Demonstrates no wall thickening or pericholecystic fluid. No stones visualized. Pancreas: The visualized portions are within normal limits Right Kidney: Increased echotexture. No mass or hydronephrosis. Other: None. CONCLUSION: 1. Mild increased echogenicity right kidney otherwise negative Electronically signed by: Arturo Guerrier MD 08/21/2018 11:57 AM EDT
[2018-08-21 12:28] LABS: Troponin I 0.78 ng/mL (0.02-0.05)
[2018-08-21 13:28] LABS: Hepatitis A IgM Antibody Nonreactive (Nonreactive); Hepatitits B Surface Antigen Nonreactive (Nonreactive)
--- NOTE | 2018-08-22 04:48 | XR ---
EXAM DATE: 08/22/2018 4:36 AM EDT AGE/SEX: 63 years / Female INDICATIONS: Short of breath. CLINICAL DATA: This is the patient's subsequent encounter. Patient reports that signs and symptoms h ave been present for 2 days and indicates a pain score of 0/10. MEDICAL/SURGICAL HISTORY: Non-responsive. Non-responsive. COMPARISON: [facility], CHEST 1V SINGLE AP, 08/20/2018. . FINDINGS: Bibasilar parenchymal consolidation with small effusions persist and are slightly worse in the interi m. No pneumothorax. Mild cardiomegaly is stable. CONCLUSION: Slightly worse consolidation and small effusions at each lung base. Electronically signed by: Filippo Evans MD 08/22/2018 4:47 AM EDT
[2018-08-22] MEDS: Chlorhexidine Gluconate 2% 1 Pack (2 Cloths) TOPICAL SCH (04:50)
[2018-08-22] MEDS: Propranolol 40 MG Tablet PO SCH ×4 (04:50→21:05)
[2018-08-22] MEDS: Hydrocortisone Sod Succinate 100 MG Vial IV.PUSH SCH ×3 (06:13→21:05)
[2018-08-22] MEDS: Heparin - SQ 10,000 UNITS/ML Vial SQ SCH ×2 (06:13→19:44)
[2018-08-22 06:15] LABS: Baso % (Auto) 0.2 % (0.0-2.0); Hematocrit 38.9 % (35.0-46.0); Hemoglobin 13.3 gm/dL (11.6-15.3); Lymph % (Auto) 9.6 % (9.0-44.0); Mean Corpuscular HGB Conc 34.2 % (32.0-36.0); Mean Corpuscular Hemoglobin 28.7 pg (27.0-34.0); Mean Corpuscular Volume 83.9 fL (80.0-100.0); Mean Platelet Volume 11.1 fL (7.0-11.0); Mono # (Auto) 0.7 th/mm3 (0.0-0.9); Mono % (Auto) 6.1 % (0.0-8.0); Neut # (Auto) 9.1 th/mm3 (1.8-7.7); Neut % (Auto) 84.1 % (16.0-70.0); Platelet Count 168 th/mm3 (150-450); Red Blood Count 4.63 mil/mm3 (4.00-5.30); Red Cell Distribution Width 14.7 % (11.6-17.2); White Blood Count 10.9 th/mm3 (4.0-11.0)
[2018-08-22 06:33] LABS: Alanine Aminotransferase 294 U/L (10-53); Albumin 3.1 g/dL (3.4-5.0); Alkaline Phosphatase 70 U/L (45-117); Anion Gap 10 meq/L (5-15); Aspartate Aminotransferase 226 U/L (15-37); Blood Urea Nitrogen 36 mg/dL (7-18); Calcium 7.8 mg/dL (8.5-10.1); Carbon Dioxide 30.5 meq/L (21.0-32.0); Chloride 105 meq/L (98-107); Glomerular Filtration Rate 53 mL/min (>89); Glucose,Random 125 mg/dL (74-106); Magnesium 2.3 mg/dL (1.5-2.5); Phosphorus 4.9 mg/dL (2.5-4.9); Potassium 4.5 meq/L (3.5-5.1); Sodium 145 meq/L (136-145); Total Protein 6.9 g/dL (6.4-8.2)
[2018-08-22 07:04] LABS: Platelet Estimate Normal (Normal)
[2018-08-22] MEDS: Senna/Docusate Sodium 8.6/50 MG Tablet PO SCH ×2 (09:18→21:05)
[2018-08-22] MEDS: IODINE PO SCH ×3 (09:18→17:11)
[2018-08-22] MEDS: [UNRECOGNIZED DRUG - OTHER] PO SCH ×3 (09:18→17:11)
[2018-08-22] MEDS: Insulin NovoLOG Aspart Correctional Sugar Inj SQ SCH ×4 (13:27→21:04)
--- NOTE | 2018-08-22 15:18 | ECG ---
Date Performed: 08/21/2018 Time Performed: 13:03:53 PTAGE: 63 years EKG: Sinus rhythm POSSIBLE RIGHT VENTRICULAR HYPERTROPHY MODERATE T-WAVE ABNORMALITY, CONSIDER ANTEROLATERAL ISCHEMIA MODERATE T-WAVE ABNORMALITY, CONSIDER INFERIOR ISCHEMIA Since the previous tracing, no significant ch adia noted ABNORMAL ECG PREVIOUS TRACING : 08/20/2018 03.10 DOCTOR: Kev Lr Interpretating Date/Time 08/22/2018 15:01:52
[2018-08-22] MEDS: Acetaminophen 325 MG Tablet PO PRN (15:26)
--- NOTE | 2018-08-22 18:36 | P.CONCA ---
History of Present Illness Primary Care Provider: No Primary Care Physician Chief Complaint: Shortness of breath, lower extremity edema PMFSH - History History Provided By: Patient - Medical History Medical History: Medical History (Last Reviewed 08/20/18 @ 16:25 by Ryan Hansen MD) Essential hypertension Thyroid crisis or storm Hyperthyroidism - Surgical History Surgical History: Surgical History (Last Reviewed 08/20/18 @ 16:25 by Ryan Hansen MD) No pertinent past surgical history - Family History Family History: Family History (Last Reviewed 08/20/18 @ 16:25 by Ryan Hansen MD) Mother Heart disease - Tobacco History Second Hand Smoke Exposure: No Tobacco Use In Past 30 Days: No Smoking Status: Never smoker - Alcohol History How Often Do You Have a Drink Containing Alcohol: Never - Substance Use History Substance History: No History of Abuse Medications and Allergies Active Medications: Active Medications Acetaminophen (Tylenol) 650 mg PO Q6H PRN PRN Reason: Fever >101f Last Admin: 08/22/18 15:26 Dose: 650 mg Hydrocodone Bitart/Acetaminophen ([place] 5/325) 1 tab PO Q4H PRN PRN Reason: PAIN SCALE 1 TO 5 Albuterol (Albuterol Neb (Prn)) 2.5 mg NEB Q2HR NEB PRN PRN Reason: SHORTNESS OF BREATH/WHEEZING Albuterol (Duoneb Neb (Jenny)) 1 ampul NEB Q4HR NEB JENNY Last Admin: 08/22/18 16:38 Dose: 1 ampul Bisacodyl (Dulcolax Supp) 10 mg RECTAL DAILY PRN PRN Reason: SEVERE CONSITIPATION Chlorhexidine Gluconate (Chlorhexidine 2% Cloth) 3 pack TOPICAL DAILY@0400 JENNY Stop: 08/26/18 03:59 Last Admin: 08/22/18 04:50 Dose: 3 pack Chlorhexidine Gluconate (Chlorhexidine 2% Cloth) 3 pack TOPICAL DAILY@0400 PRN PRN Reason: Extra cloth needed Stop: 08/26/18 03:59 Cholestyramine Resin (Questran 4 Gm Pkt) 4 gm PO BID JENNY Last Admin: 08/22/18 09:18 Dose: 4 gm Dextrose (D50w Vial) 50 ml IV.PUSH UNSCH PRN PRN Reason: PER HYPOGLYCEMIA PROTOCOL Glucagon (Glucagon Inj) 1 mg OTHER PRN PRN PRN Reason: for Hypoglycemia Protocol Heparin Sodium (Porcine) (Heparin Inj) 5,000 units SQ Q12H [facility] Last Admin: 08/22/18 06:13 Dose: 5,000 units Hydralazine HCl (Apresoline Inj) 10 mg IV.PUSH Q1H PRN PRN Reason: Sbp>165, Dbp>90 Hydrocortisone Sodium Succinate (Solucortef Inj) 100 mg IV.PUSH Q8HR [facility] Last Admin: 08/22/18 13:27 Dose: 100 mg Esmolol HCl (Brevibloc 2,500 Mg/Ns 250 Ml Premix) 2,500 mg in 250 mls @ 8.175 mls/hr IV.CONT TITRATE PRN; Protocol PRN Reason: Per Protocol Insulin Aspart (Novolog Insulin Correctional Sugar Inj) 0 unit SQ ACHS [facility]; Protocol Last Admin: 08/22/18 17:11 Dose: Not Given Iodine/Potassium Iodide (Lugol's (Strong Iodine) 1 Ml) 5 drop PO TID [facility] Last Admin: 08/22/18 17:11 Dose: 5 drop Labetalol HCl (Trandate Inj) 10 mg IV.PUSH Q1H PRN PRN Reason: Sbp>160, Dbp>90, Hr>65 Lactulose (Lactulose Liq) 30 ml PO DAILY PRN PRN Reason: SEVERE CONSITIPATION Miscellaneous (Pill Splitter) 1 each OTHER UNSCH PRN PRN Reason: SEE LABEL COMMENTS Morphine Sulfate (Morphine Inj) 2 mg IV.PUSH Q2H PRN PRN Reason: PAIN SCALE 6 TO 10 Nitroglycerin (Nitro-Bid 2% Oint) 2 inch TOPICAL Q6HR PRN PRN Reason: Sbp>165, Dbp>90 Ondansetron HCl (Zofran Inj) 4 mg IV.PUSH Q6H PRN PRN Reason: NAUSEA OR VOMITING Pantoprazole Sodium (Protonix) 40 mg PO DAILY [facility] Last Admin: 08/22/18 09:18 Dose: 40 mg Propranolol HCl (Inderal) 40 mg PO Q6H [facility] Last Admin: 08/22/18 15:28 Dose: 40 mg Propylthiouracil (Ptu) 100 mg PO TID [facility] Last Admin: 08/22/18 17:10 Dose: 100 mg Senna/Docusate Sodium (Paula-Colace) 1 tab PO BID [facility] Last Admin: 08/22/18 09:18 Dose: 1 tab Sennosides (Senokot) 17.2 mg PO Q12H PRN PRN Reason: Moderate Constipation Sodium Chloride (Ns Flush) 2 ml IV.FLUSH BID JENNY Last Admin: 08/22/18 09:18 Dose: 2 ml Sodium Chloride (Ns Flush) 2 ml IV.FLUSH PRN PRN PRN Reason: FLUSH AFTER USING IV ACCESS Last Admin: 08/22/18 09:18 Dose: 2 ml Allergies Allergy/AdvReac Type Severity Reaction Status Date / Time No Known Allergies Allergy Verified 08/20/18 02:57 Home Medications Medication Instructions Recorded Confirmed Type methimazole 5 mg PO DAILY 08/20/18 08/20/18 History Exam Vital signs: Vital Signs 08/21/18 18:45 08/21/18 19:00 08/21/18 19:15 Temperature 99.3 F 99.1 F 98.8 F Pulse Rate 87 79 82 Respiratory Rate 24 21 24 Blood Pressure 144/90 H 146/77 H 146/77 H Pulse Oximetry 100 100 100 08/21/18 19:30 08/21/18 19:45 08/21/18 20:00 Temperature 98.8 F 98.6 F 98.2 F Pulse Rate 79 80 78 Respiratory Rate 21 22 21 Blood Pressure 129/66 136/76 142/74 H Pulse Oximetry 100 100 100 08/21/18 20:15 08/21/18 20:30 08/21/18 20:35 Temperature 98.2 F 98.1 F Pulse Rate 75 80 80 Respiratory Rate 22 19 17 Blood Pressure 119/59 L 135/77 Pulse Oximetry 100 100 100 08/21/18 20:45 08/21/18 21:00 08/21/18 21:15 Temperature 98.1 F 98.2 F 98.1 F Pulse Rate 81 84 78 Respiratory Rate 22 21 21 Blood Pressure 146/87 H 147/92 H 137/70 Pulse Oximetry 100 99 100 08/21/18 21:30 08/21/18 21:45 08/21/18 22:00 Temperature 98.1 F 98.2 F 98.1 F Pulse Rate 78 78 77 Respiratory Rate 19 19 19 Blood Pressure 126/60 123/60 119/62 Pulse Oximetry 100 100 100 08/21/18 22:15 08/21/18 22:30 08/21/18 22:45 Temperature 97.9 F 97.7 F 97.9 F Pulse Rate 75 85 92 H Respiratory Rate 18 21 28 H Blood Pressure 123/63 166/97 H 169/102 H Pulse Oximetry 100 100 96 08/21/18 23:00 08/21/18 23:15 08/21/18 23:30 Temperature 98.1 F 98.4 F 98.8 F Pulse Rate 93 H 88 80 Respiratory Rate 24 23 21 Blood Pressure 165/102 H 156/91 H 143/78 H Pulse Oximetry 96 99 100 08/21/18 23:45 08/22/18 00:00 08/22/18 00:07 Temperature 99.1 F 99.1 F Pulse Rate 90 83 88 Respiratory Rate 22 22 19 Blood Pressure 154/86 H 143/84 H Pulse Oximetry 98 100 08/22/18 00:15 08/22/18 00:30 08/22/18 00:45 Temperature 99.1 F 99.1 F 99.3 F Pulse Rate 96 H 87 82 Respiratory Rate 27 H 22 22 Blood Pressure 150/91 H 129/74 131/65 Pulse Oximetry 99 98 100 08/22/18 00:59 08/22/18 01:00 08/22/18 01:15 Temperature 99.3 F 99.3 F 99.1 F Pulse Rate 78 79 83 Respiratory Rate 20 19 22 Blood Pressure 127/62 131/70 Pulse Oximetry 100 99 100 08/22/18 01:30 08/22/18 01:45 08/22/18 02:00 Temperature 99.1 F 99.1 F 99.0 F Pulse Rate 84 89 76 Respiratory Rate 23 22 18 Blood Pressure 133/75 159/100 H 126/66 Pulse Oximetry 100 98 100 08/22/18 02:15 08/22/18 02:30 08/22/18 02:45 Temperature 98.6 F 98.4 F 98.2 F Pulse Rate 74 75 85 Respiratory Rate 19 19 32 H Blood Pressure 127/62 121/64 149/92 H Pulse Oximetry 100 100 97 08/22/18 03:00 08/22/18 03:15 08/22/18 03:30 Temperature 98.2 F 98.2 F 97.9 F Pulse Rate 76 74 74 Respiratory Rate 22 20 18 Blood Pressure 141/79 H 126/61 123/60 Pulse Oximetry 100 100 100 08/22/18 03:45 08/22/18 04:00 08/22/18 04:15 Temperature 97.7 F 97.9 F 97.9 F Pulse Rate 76 89 85 Respiratory Rate 28 H 27 H 22 Blood Pressure 143/78 H 159/98 H 161/98 H Pulse Oximetry 100 97 95 08/22/18 04:30 08/22/18 04:37 08/22/18 04:45 Temperature 98.1 F 98.4 F Pulse Rate 76 78 90 Respiratory Rate 18 22 22 Blood Pressure 142/82 H 168/109 H Pulse Oximetry 100 100 08/22/18 05:00 08/22/18 05:30 08/22/18 06:00 Temperature 98.6 F 98.8 F 98.6 F Pulse Rate 91 H 81 78 Respiratory Rate 24 21 20 Blood Pressure 162/104 H 150/88 H 139/75 Pulse Oximetry 96 99 100 08/22/18 08:00 08/22/18 08:07 08/22/18 08:30 Temperature 97.9 F 97.9 F Pulse Rate 76 75 85 Respiratory Rate 18 16 23 Blood Pressure 139/73 174/106 H Pulse Oximetry 100 99 96 08/22/18 09:00 08/22/18 10:00 08/22/18 10:34 Temperature 97.9 F 97.3 F L Pulse Rate 91 H 92 H 92 H Respiratory Rate 24 26 H Blood Pressure 160/96 H Pulse Oximetry 94 L 98 08/22/18 11:00 08/22/18 11:01 08/22/18 11:53 Temperature 98.1 F 98.1 F Pulse Rate 92 H 91 H 92 H Respiratory Rate 19 23 16 Blood Pressure 153/85 H Pulse Oximetry 96 96 08/22/18 12:00 08/22/18 13:00 08/22/18 14:00 Temperature 98.6 F 98.4 F Pulse Rate 92 H 92 H 91 H Respiratory Rate 31 H 29 H 31 H Blood Pressure 161/102 H 160/96 H 168/111 H Pulse Oximetry 100 97 95 08/22/18 14:07 08/22/18 15:00 08/22/18 16:00 Temperature 97.5 F L Pulse Rate 91 H 92 H 92 H Respiratory Rate 29 H 30 H 31 H Blood Pressure 164/101 H 172/117 H 167/105 H Pulse Oximetry 94 L 97 95 08/22/18 16:38 Temperature Pulse Rate 82 Respiratory Rate 24 Blood Pressure Pulse Oximetry Intake & Output 08/21/18 08/22/18 08/22/18 18:59 06:59 18:59 Intake Total 560 / 560 Output Total 100 / 100 250 / 250 Balance 460 / 460 -250 / -250 Weight 55 kg Intake: Oral 560 / 560 Output: Urine 0 / 0 250 / 250 Urine Amount (Catheter) 100 / 100 Female External 100 / 100 Other: # Voids 1 # Incontinent Voids 0 1 # Bowel Movements 0 0 Results 08/22/18 05:09 08/22/18 05:09 Cardiac Enzymes 08/21/18 08/21/18 08/22/18 Range/Units 04:40 11:27 05:09 AST 165 H 226 H (15-37) U/L Troponin I 0.78 H* D (0.02-0.05) ng/mL Coagulation 08/21/18 Range/Units 04:40 PT 14.0 H (9.8-11.6) sec APTT 24.8 (24.3-30.1) sec CBC 08/21/18 08/22/18 Range/Units 04:40 05:09 WBC 9.8 10.9 (4.0-11.0) th/mm3 RBC 4.53 4.63 (4.00-5.30) mil/mm3 Hgb 12.9 13.3 (11.6-15.3) gm/dL Hct 37.9 38.9 (35.0-46.0) % Plt Count 153 D 168 (150-450) th/mm3 Neut # (Auto) 9.1 H (1.8-7.7) th/mm3 Lymph # (Auto) 1.0 (1.0-4.8) th/mm3 [place] # (Auto) 0.7 (0.0-0.9) th/mm3 Eos # (Auto) 0.0 (0.0-0.4) th/mm3 Baso # (Auto) 0.0 (0.0-0.2) th/mm3 Comprehensive Metabolic Panel 08/20/18 08/21/18 08/21/18 Range/Units 23:10 01:04 04:40 Sodium 140 144 (136-145) meq/L Potassium 6.7 H* D 6.3 H 5.0 D (3.5-5.1) meq/L Chloride 112 H 108 H (98-107) meq/L Carbon Dioxide 18.4 L 26.8 (21.0-32.0) meq/L BUN 30 H 35 H (7-18) mg/dL Creatinine 1.27 H 1.41 H (0.50-1.00) mg/dL Calcium 8.7 8.3 L (8.5-10.1) mg/dL Direct Bilirubin 0.6 H (0.0-0.2) mg/dL Indirect Bilirubin 1.1 H (0.0-0.8) mg/dL AST 165 H (15-37) U/L ALT 155 H (10-53) U/L Alkaline Phosphatase 75 (45-117) U/L Total Protein 6.6 D (6.4-8.2) g/dL Albumin 3.3 L (3.4-5.0) g/dL 08/22/18 Range/Units 05:09 Sodium 145 (136-145) meq/L Potassium 4.5 (3.5-5.1) meq/L Chloride 105 (98-107) meq/L Carbon Dioxide 30.5 (21.0-32.0) meq/L BUN 36 H (7-18) mg/dL Creatinine 1.23 H (0.50-1.00) mg/dL Calcium 7.8 L (8.5-10.1) mg/dL Direct Bilirubin (0.0-0.2) mg/dL Indirect Bilirubin (0.0-0.8) mg/dL AST 226 H (15-37) U/L ALT 294 H (10-53) U/L Alkaline Phosphatase 70 (45-117) U/L Total Protein 6.9 (6.4-8.2) g/dL Albumin 3.1 L (3.4-5.0) g/dL Intake and Output 08/22/18 08/22/18 08/22/18 06:59 14:59 22:59 Output Total 250 / 250 Balance -250 / -250 Output: Urine 250 / 250 Other: # Incontinent Voids 1 # Bowel Movements 0 Weight 55 kg - Imaging and Cardiology Imaging: Impressions Liver Ultrasound 08/21/18 00:00 CONCLUSION: 1. Mild increased echogenicity right kidney otherwise negative Chest X-Ray 08/22/18 06:00 CONCLUSION: Slightly worse consolidation and small effusions at each lung base. Assessment and Plan - Plan Code Status: Thyrotoxicosis Acute Decompensated HF 2/2 to thyrotoxicosis EF 25% ROB IV lasix 20mg IV x 1 continue BB (propanolol for now and change to coreg later) will start MARII-i tommorow propythioracil 100mg TID Hydrocortisone 100mg IV Cholestyramine 4g
[2018-08-22] MEDS: Labetalol HCl Inj 100 MG/20 ML Vial IV.PUSH PRN ×3 (19:07→23:46)
--- NOTE | 2018-08-22 20:06 | MB ---
cc: Jayden Wellington MD,Ned Clayton MD DATE: 08/15/2018 REQUESTING PHYSICIAN: Ned Goldsmith MD REASON FOR CONSULTATION: Shortness of breath. HISTORY OF PRESENT ILLNESS: Ms. Olmstead is a pleasant 63-year-old female who is from [place]. She came over here 2 months ago to be with her son. She has a history of hyperthyroidism. She was taking her methimazole, which she stopped taking about 1 month ago. She has been having worsening of her shortness of breath for the last 3-4 days. Also, has increased swelling in her legs. Did not have any fever, chills or night sweats. She presented to the [facility]. She was found to have a heart rate of around 200. She was given IV diltiazem and propranolol and she was transferred over here. Her chest x-ray shows slightly worse consolidation and small pleural effusion at the lung bases. PAST MEDICAL HISTORY: Significant for a history of hyperthyroidism and edema of the legs. MEDICATIONS: She is currently takin. [place] for pain. 2. Albuterol nebulizer treatment. 3. Esmolol drip. 4. Heparin 5000 q.12 hours. 5. Hydrocortisone 100 mg q.8 hours. 6. Hydralazine IV p.r.n. 7. Labetalol 10 mg p.r.n. 8. Propranolol 40 mg q.6 hours. 9. Protonix 40 mg a day. 10. Propylthiouracil 100 mg 3 times a day. ALLERGIES: NO KNOWN DRUG ALLERGIES. SOCIAL HISTORY: She is . She is a homemaker. No history of smoking or alcohol abuse. FAMILY HISTORY: She has 4 children, 4 sons. REVIEW OF SYSTEMS: She has lost a lot of weight. She has swelling in her legs. No seizure, stroke, epilepsy. No DVT, pulmonary embolism. No malignancy. PHYSICAL EXAMINATION: GENERAL: A thin built elderly female not in any acute distress. VITAL SIGNS: Blood pressure 167/105, heart rate 92, respirations 20, temperature 97.5. HEENT: She has temporal wasting. Pupils are equal and reactive to light. Oral mucosa and nasal mucosa normal. NECK: Supple. JVP not raised. CHEST: She has rales at the bases and has decreased breath sounds at the bases. HEART: S1, S2 normal. ABDOMEN: Soft, nondistended. Bowel sounds are present. EXTREMITIES: 1+ pedal edema. CENTRAL NERVOUS SYSTEM: She is alert and oriented x 3. No focal deficit. IMPRESSION: 1. Hyperthyroidism. 2. Thyrotoxicosis. 3. Hypertension. 4. Congestive heart failure. PLAN: I discussed with the patient. She is being diuresed with IV Lasix. Continue propranolol, propylthiouracil and IV hydrocortisone. Supplemental oxygen and wean oxygen to keep the saturation greater than 90%. She is on subcutaneous heparin for DVT prophylaxis. Further treatment will depend on the course in the hospital. Thank you, Dr. Ned Goldsmith, for this consult. MD ARACELI Chance/ginny , 07:01 PM , 07:10 PM
[2018-08-23] MEDS: Chlorhexidine Gluconate 2% 1 Pack (2 Cloths) TOPICAL SCH (03:09)
[2018-08-23] MEDS: Propranolol 40 MG Tablet PO SCH ×4 (03:09→22:36)
[2018-08-23] MEDS: Hydrocortisone Sod Succinate 100 MG Vial IV.PUSH SCH ×3 (06:10→22:37)
[2018-08-23] MEDS: Heparin - SQ 10,000 UNITS/ML Vial SQ SCH ×2 (06:10→19:13)
[2018-08-23] MEDS: Labetalol HCl Inj 100 MG/20 ML Vial IV.PUSH PRN (07:10)
[2018-08-23] MEDS: Senna/Docusate Sodium 8.6/50 MG Tablet PO SCH ×2 (09:58→22:36)
[2018-08-23] MEDS: IODINE PO SCH ×3 (10:01→19:12)
[2018-08-23] MEDS: [UNRECOGNIZED DRUG - OTHER] PO SCH ×3 (10:01→19:12)
--- NOTE | 2018-08-23 10:28 | P.PNIM ---
Subjective Interval history: This is a 63-year-old AA female. Date of admission 08/20/2018. Past medical history includes hypothyroidism for the past 3 years and essential hypertension. Patient has been off her methimazole for the past 1 month. Patient presents to [facility] with a 2-3 history of worsening shortness of breath and lower extremity edema. When she arrived, patient was noted to be short of breath with a heart rate in the 200s possibly atrial fib versus SVT and altered mental status. Her thyroid storm score was positive at 50 with tachycardia, pulmonary edema, altered mental status. At that facility, patient did receive 10 mg diltiazem followed by 15 mg diltiazem and 20 mg per propranolol. Afterwards, patient was started on an esmolol drip CT pulmonary revealed no central pulmonary. Left greater than right pleural effusion. Mild pulmonary edema. Her troponin was slightly elevated at 0.12. Potassium is 3.0. Her TSH was less than 0.005. Free T4 is elevated along with free T3. She is currently being treated as thyroid storm. She is transported to [facility]. She will be transitioned to propylthiouracil, Lugol's iodine, hydrocortisone and cholestyramine we will monitor closely in the intensive care unit 08/21: Patient's heart rate and blood pressure much improved today. Currently on nasal cannula. Restarting Lugol's iodine. Will monitor closely in the intensive care unit for another couple of days. Hyperkalemia has been treated. 08-23 TRANSFERRED TO OUR CARE/SERVICE MOVE OUT OF ICU DW RN AND PT WILL NEED TO FOLLOW UP AND TAKE MEDS AT DISCHARGE HAS THYROTOXICOSIS ACUTE DECOMPENSATED HEART FAILURE NONCOMPLIANCE ACUTE KIDNEY INJURY AM LABS Physical Exam Vital signs: Vital Signs 08/22/18 10:34 08/22/18 11:00 08/22/18 11:01 Temperature 98.1 F 98.1 F Pulse Rate 92 H 92 H 91 H Respiratory Rate 19 23 Blood Pressure 153/85 H Pulse Oximetry 96 96 08/22/18 11:53 08/22/18 12:00 08/22/18 13:00 Temperature 98.6 F 98.4 F Pulse Rate 92 H 92 H 92 H Respiratory Rate 16 31 H 29 H Blood Pressure 161/102 H 160/96 H Pulse Oximetry 100 97 08/22/18 14:00 08/22/18 14:07 08/22/18 15:00 Temperature Pulse Rate 91 H 91 H 92 H Respiratory Rate 31 H 29 H 30 H Blood Pressure 168/111 H 164/101 H 172/117 H Pulse Oximetry 95 94 L 97 08/22/18 16:00 08/22/18 16:38 08/22/18 17:00 Temperature 97.5 F L Pulse Rate 92 H 82 79 Respiratory Rate 31 H 24 26 H Blood Pressure 167/105 H 147/86 H Pulse Oximetry 95 97 08/22/18 18:00 08/22/18 19:00 08/22/18 19:05 Temperature Pulse Rate 88 89 89 Respiratory Rate 27 H 30 H 34 H Blood Pressure 164/98 H 176/114 H 162/100 H Pulse Oximetry 94 L 95 95 08/22/18 20:00 08/22/18 20:20 08/22/18 21:00 Temperature 97.9 F Pulse Rate 84 89 93 H Respiratory Rate 30 H 16 33 H Blood Pressure 157/92 H Pulse Oximetry 96 94 L 93 L 08/22/18 21:02 08/22/18 21:06 08/22/18 21:30 Temperature Pulse Rate 93 H 90 78 Respiratory Rate 33 H 31 H 25 H Blood Pressure 168/107 H 170/103 H 139/71 Pulse Oximetry 93 L 95 97 08/22/18 22:00 08/22/18 22:30 08/22/18 23:00 Temperature Pulse Rate 76 75 75 Respiratory Rate 22 24 19 Blood Pressure 148/69 H 142/72 H 162/84 H Pulse Oximetry 98 99 99 08/22/18 23:30 08/22/18 23:45 08/23/18 00:00 Temperature Pulse Rate 77 74 74 Respiratory Rate 22 21 20 Blood Pressure 173/88 H 162/88 H 151/74 H Pulse Oximetry 99 99 98 08/23/18 00:47 08/23/18 01:00 08/23/18 02:00 Temperature Pulse Rate 73 73 73 Respiratory Rate 20 19 19 Blood Pressure 155/76 H 132/63 Pulse Oximetry 99 100 08/23/18 03:00 08/23/18 04:00 08/23/18 04:43 Temperature 98.1 F Pulse Rate 71 73 76 Respiratory Rate 18 19 16 Blood Pressure 134/65 158/85 H Pulse Oximetry 100 100 08/23/18 05:00 08/23/18 06:00 08/23/18 06:06 Temperature Pulse Rate 75 84 86 Respiratory Rate 19 22 21 Blood Pressure 163/86 H 164/102 H 172/110 H Pulse Oximetry 99 98 97 08/23/18 06:07 08/23/18 09:46 Temperature Pulse Rate 86 81 Respiratory Rate 24 18 Blood Pressure 160/102 H Pulse Oximetry 96 99 Intake & Output 08/22/18 08/23/18 08/23/18 18:59 06:59 18:59 Intake Total 250 / 250 Output Total 800 / 800 Balance -550 / -550 Weight 55 kg Intake: Oral 250 / 250 Output: Urine 800 / 800 Other: # Incontinent Voids 3 Date of Last Bowel Movement 08/23/18 # Bowel Movements 2 Narrative: GENERAL: 63-year-old [place] female currently SITTING IN CHAIR BY THE BED in no acute distress on nasal cannula SKIN: Warm and dry. No rash HEAD: Atraumatic. Normocephalic. EYES: Pupils equal and round about 3 members bilaterally reactive. No scleral icterus. No injection or drainage. ENT: No nasal bleeding or discharge. Mucous membranes pink and moist. NECK: Trachea midline. No JVD. CARDIOVASCULAR: Regular rate and rhythm. S1, S2. No S4. RESPIRATORY: Few crackles appreciated bases. No wheezing.. GASTROINTESTINAL: Abdomen soft, non-tender, nondistended. Hepatic and splenic margins not palpable. MUSCULOSKELETAL: Extremities without significant peripheral edema. No obvious deformities. NEUROLOGICAL: Awake and alert. No obvious cranial nerve deficits. Motor grossly within normal limits. Five out of 5 muscle strength in the arms and legs. Normal speech. Insight and judgment is good Mood and behavior is somewhat appropriate - Urinary Catheter Management Female External Cath placed during this visit: no Results - Labs CBC & Chem 7: 08/22/18 05:09 08/22/18 05:09 Laboratory Results - last 24 hr 08/22/18 08/22/18 08/23/18 11:35 20:24 09:43 POC Glucose 205 H 151 H 179 H Microbiology 08/20/18 23:10 Blood - Peripheral Aerobic Blood Culture - Preliminary No growth in 2 days 08/20/18 23:10 Blood - Peripheral Anaerobic Blood Culture - Final QNS - See aerobic report. 08/20/18 23:05 Blood - Peripheral Aerobic Blood Culture - Preliminary No growth in 2 days 08/20/18 23:05 Blood - Peripheral Anaerobic Blood Culture - Final QNS - See aerobic report. - Imaging ITS Impressions Venous Doppler Study 08/20/18 00:00 CONCLUSION: No venous thrombosis is identified within either lower extremity. Liver Ultrasound 08/21/18 00:00 CONCLUSION: 1. Mild increased echogenicity right kidney otherwise negative Chest X-Ray 08/22/18 06:00 CONCLUSION: Slightly worse consolidation and small effusions at each lung base. Assessment and Plan - Plan Acute systolic heart failure with ejection fraction of 20-25% Elevated troponin History of essential hypertension Small pericardial effusion -Started on propranolol 60 mg every 6 hours -2D echo showed EF of 20-25% with left atrial enlargement -Seen by cardiology regarding elevated troponins no procedures recommended -Heart failure due to the underlying thyrotoxicosis Acute respiratory failure secondary to pulmonary edema and left pleural effusion -Wean off oxygen -Incentive spirometry -Duo nebs -Right pleural effusion Elevated total bilirubin and hypoalbuminemia Hepatitis panel was negative Monitor LFTs On Protonix Cardiac diet Thyroid storm/history of hyperthyroidism -TSH was less than 0.005 free T4 was 3.49 total T3 was 94 Started on propylthiouracil 100 mg 3 times a day but Lugol's iodine 5 drops 3 times a day On hydrocortisone 100 mg IV every 8 On cholestyramine 4 g twice daily Acute kidney injury/elevated creatinine A.m. labs Noncompliance with medications -We will need to take medications when she leaves the hospital Fevers/pyrexia possibly secondary to thyrotoxicosis Acute hyperkalemia has been improved and hyper magnesium has been Lower extremity edema. -Bilateral Doppler ultrasound shows no deep vein thrombosis Gait instability and weakness continue with physical therapy and Occupational Therapy GI prophylaxis with Protonix DVT prophylaxis with SCDs and q. heparin Transfer out of ICU Code Status: Full code Discussed Condition With: Discussed with RN and patient Discharge Planning: Move out of ICU will need medication We will need to take medications when she leaves the Not ready for discharge yet
[2018-08-23] MEDS: Insulin NovoLOG Aspart Correctional Sugar Inj SQ SCH ×4 (11:13→22:36)
--- NOTE | 2018-08-23 18:36 | P.PNPL ---
Subjective Interval history: 63 YO Female with Hyperthyroidism with sob, pulm odema Breathing much better Weaned to NC Appetite improving Physical Exam Vital signs: Vital Signs 08/22/18 19:00 08/22/18 19:05 08/22/18 20:00 Temperature 97.9 F Pulse Rate 89 89 84 Respiratory Rate 30 H 34 H 30 H Blood Pressure 176/114 H 162/100 H 157/92 H Pulse Oximetry 95 95 96 08/22/18 20:20 08/22/18 21:00 08/22/18 21:02 Temperature Pulse Rate 89 93 H 93 H Respiratory Rate 16 33 H 33 H Blood Pressure 168/107 H Pulse Oximetry 94 L 93 L 93 L 08/22/18 21:06 08/22/18 21:30 08/22/18 22:00 Temperature Pulse Rate 90 78 76 Respiratory Rate 31 H 25 H 22 Blood Pressure 170/103 H 139/71 148/69 H Pulse Oximetry 95 97 98 08/22/18 22:30 08/22/18 23:00 08/22/18 23:30 Temperature Pulse Rate 75 75 77 Respiratory Rate 24 19 22 Blood Pressure 142/72 H 162/84 H 173/88 H Pulse Oximetry 99 99 99 08/22/18 23:45 08/23/18 00:00 08/23/18 00:47 Temperature Pulse Rate 74 74 73 Respiratory Rate 21 20 20 Blood Pressure 162/88 H 151/74 H Pulse Oximetry 99 98 08/23/18 01:00 08/23/18 02:00 08/23/18 03:00 Temperature Pulse Rate 73 73 71 Respiratory Rate 19 19 18 Blood Pressure 155/76 H 132/63 134/65 Pulse Oximetry 99 100 100 08/23/18 04:00 08/23/18 04:43 08/23/18 05:00 Temperature 98.1 F Pulse Rate 73 76 75 Respiratory Rate 19 16 19 Blood Pressure 158/85 H 163/86 H Pulse Oximetry 100 99 08/23/18 06:00 08/23/18 06:06 08/23/18 06:07 Temperature Pulse Rate 84 86 86 Respiratory Rate 22 21 24 Blood Pressure 164/102 H 172/110 H 160/102 H Pulse Oximetry 98 97 96 08/23/18 07:00 08/23/18 08:00 08/23/18 09:00 Temperature 97.7 F Pulse Rate 77 71 85 Respiratory Rate 21 19 21 Blood Pressure 166/93 H 160/79 H 160/87 H Pulse Oximetry 99 100 98 08/23/18 09:46 08/23/18 10:00 08/23/18 11:00 Temperature Pulse Rate 81 80 80 Respiratory Rate 18 Blood Pressure 149/76 H Pulse Oximetry 99 100 08/23/18 12:00 08/23/18 17:05 08/23/18 17:16 Temperature 98.1 F 98 F 98 F Pulse Rate 70 70 89 Respiratory Rate 16 Blood Pressure 151/83 H 169/90 H 162/85 H Pulse Oximetry 100 98 98 Intake & Output 08/22/18 08/23/18 08/23/18 18:59 06:59 18:59 Intake Total 250 / 250 Output Total 800 / 800 175 / 175 Balance -550 / -550 -175 / -175 Weight 55 kg Intake: Oral 250 / 250 Output: Urine 800 / 800 Urine Amount (Catheter) 175 / 175 Female External 175 / 175 Other: # Incontinent Voids 3 Date of Last Bowel Movement 08/23/18 08/23/18 # Bowel Movements 2 1 GENERAL: Thin built female, NAD SKIN: Warm and dry. HEAD: Normocephalic. EYES: No scleral icterus. No injection or drainage. NECK: Supple, trachea midline. No JVD or lymphadenopathy. CARDIOVASCULAR: Regular rate and rhythm without murmurs, gallops, or rubs. RESPIRATORY: Breath sounds equal bilaterally. No accessory muscle use. GASTROINTESTINAL: Abdomen soft, non-tender, nondistended. MUSCULOSKELETAL: No cyanosis, + edema. BACK: Nontender without obvious deformity. No CVA tenderness. - Urinary Catheter Management Female External Cath placed during this visit: no Assessment and Plan - Plan IMPRESSION: 1. Hyperthyroidism. 2. Thyrotoxicosis. 3. Hypertension. 4. Congestive heart failure. PLAN: Supplement 02 Diurease monitor Lytes Hydrocortisone 100 mg q 6 hrs SQ Heparin 5000 IU bid.
[2018-08-24 06:58] LABS: Hematocrit 41.8 % (35.0-46.0); Hemoglobin 13.8 gm/dL (11.6-15.3); Lymph # (Auto) 0.7 th/mm3 (1.0-4.8); Mean Corpuscular HGB Conc 32.9 % (32.0-36.0); Mean Corpuscular Hemoglobin 28.1 pg (27.0-34.0); Mean Corpuscular Volume 85.4 fL (80.0-100.0); Mean Platelet Volume 10.8 fL (7.0-11.0); Mono # (Auto) 0.4 th/mm3 (0.0-0.9); Mono % (Auto) 5.2 % (0.0-8.0); Neut # (Auto) 6.1 th/mm3 (1.8-7.7); Neut % (Auto) 84.8 % (16.0-70.0); Platelet Count 186 th/mm3 (150-450); Red Cell Distribution Width 14.2 % (11.6-17.2); White Blood Count 7.2 th/mm3 (4.0-11.0)
[2018-08-24] MEDS: Chlorhexidine Gluconate 2% 1 Pack (2 Cloths) TOPICAL SCH (07:10)
[2018-08-24] MEDS: Propranolol 40 MG Tablet PO SCH ×4 (07:11→21:12)
[2018-08-24] MEDS: Heparin - SQ 10,000 UNITS/ML Vial SQ SCH ×2 (07:22→18:09)
[2018-08-24] MEDS: Hydrocortisone Sod Succinate 100 MG Vial IV.PUSH SCH ×3 (07:23→21:12)
[2018-08-24 07:24] LABS: Alanine Aminotransferase 281 U/L (10-53); Albumin 3.2 g/dL (3.4-5.0); Anion Gap 14 meq/L (5-15); Aspartate Aminotransferase 80 U/L (15-37); Blood Urea Nitrogen 31 mg/dL (7-18); Calcium 8.3 mg/dL (8.5-10.1); Carbon Dioxide 27.3 meq/L (21.0-32.0); Chloride 102 meq/L (98-107); Glomerular Filtration Rate 57 mL/min (>89); Glucose,Random 113 mg/dL (74-106); Magnesium 2.1 mg/dL (1.5-2.5); Phosphorus 3.2 mg/dL (2.5-4.9); Potassium 3.5 meq/L (3.5-5.1); Sodium 143 meq/L (136-145)
[2018-08-24 07:36] LABS: Alkaline Phosphatase 70 U/L (45-117); Free T4 (Free Thyroxine) 2.29 ng/dL (0.76-1.46)
[2018-08-24] MEDS: Insulin NovoLOG Aspart Correctional Sugar Inj SQ SCH ×4 (09:03→21:13)
[2018-08-24] MEDS: Senna/Docusate Sodium 8.6/50 MG Tablet PO SCH (09:06)
[2018-08-24] MEDS: [UNRECOGNIZED DRUG - OTHER] PO SCH ×3 (09:07→18:08)
[2018-08-24] MEDS: IODINE PO SCH ×3 (09:07→18:08)
--- NOTE | 2018-08-24 12:16 | P.PN ---
Subjective Interval history: Follow-up acute decompensated heart failure secondary to thyrotoxicosis August 24, 2018-patient seen and examined, denies any chest pain or shortness of breath. States she will be compliant with her medicines from now on. Physical Exam Vital signs: Vital Signs 08/23/18 17:05 08/23/18 17:16 08/23/18 20:00 Temperature 98 F 98 F 97.7 F Pulse Rate 70 89 78 Respiratory Rate 18 16 18 Blood Pressure 169/90 H 162/85 H 168/80 H Pulse Oximetry 98 98 98 08/24/18 00:00 08/24/18 00:19 08/24/18 04:00 Temperature 98.0 F 97.7 F Pulse Rate 74 79 83 Respiratory Rate 16 18 Blood Pressure 167/87 H 159/90 H Pulse Oximetry 96 94 L 08/24/18 08:00 Temperature 97.7 F Pulse Rate 80 Respiratory Rate 20 Blood Pressure 178/88 H Pulse Oximetry 98 Intake & Output 08/23/18 08/24/18 08/24/18 18:59 06:59 18:59 Intake Total 240 / 240 120 / 120 Output Total 175 / 175 Balance -175 / -175 240 / 240 120 / 120 Intake: Oral 240 / 240 120 / 120 Output: Urine Amount (Catheter) 175 / 175 Female External 175 / 175 Other: # Voids 2 # Incontinent Voids 2 1 Date of Last Bowel Movement 08/23/18 08/23/18 # Bowel Movements 1 # Incontinent Bowel Movements 1 Narrative: GENERAL: NAD SKIN: Warm and dry. No rash HEAD: Atraumatic. Normocephalic. EYES: Pupils equal and round about 3 members bilaterally reactive. No scleral icterus. No injection or drainage. ENT: No nasal bleeding or discharge. Mucous membranes pink and moist. NECK: Trachea midline. No JVD. CARDIOVASCULAR: Regular rate and rhythm. S1, S2. No S4. RESPIRATORY: Few crackles appreciated bases. No wheezing.. GASTROINTESTINAL: Abdomen soft, non-tender, nondistended. Hepatic and splenic margins not palpable. MUSCULOSKELETAL: Extremities without significant peripheral edema. No obvious deformities. NEUROLOGICAL: Awake and alert. No obvious cranial nerve deficits. Motor grossly within normal limits. Five out of 5 muscle strength in the arms and legs. Normal speech. Insight and judgment is good - Urinary Catheter Management Female External Cath placed during this visit: no Results - Labs CBC & Chem 7: 08/24/18 04:29 08/24/18 04:29 Laboratory Results - last 24 hr 08/23/18 08/24/18 08/24/18 20:44 04:29 04:29 WBC 7.2 RBC 4.90 Hgb 13.8 Hct 41.8 MCV 85.4 MCH 28.1 MCHC 32.9 RDW 14.2 Plt Count 186 MPV 10.8 Neut % (Auto) 84.8 H Lymph % (Auto) 10.0 [place] % (Auto) 5.2 Eos % (Auto) 0.0 Baso % (Auto) 0.0 Neut # (Auto) 6.1 Lymph # (Auto) 0.7 L [place] # (Auto) 0.4 Eos # (Auto) 0.0 Baso # (Auto) 0.0 WBC Differential . Differential Comment Auto diff final Sodium 143 Potassium 3.5 D Chloride 102 Carbon Dioxide 27.3 Anion Gap 14 BUN 31 H Creatinine 1.16 H Estimated GFR 57 L POC Glucose 235 H Random Glucose 113 H Calcium 8.3 L Phosphorus 3.2 D Magnesium 2.1 Total Bilirubin 1.7 H AST 80 H ALT 281 H Alkaline Phosphatase 70 Total Protein 7.0 Albumin 3.2 L TSH Less than 0.005 L Free T4 2.29 H 08/24/18 09:03 WBC RBC Hgb Hct MCV MCH MCHC RDW Plt Count MPV Neut % (Auto) Lymph % (Auto) [place] % (Auto) Eos % (Auto) Baso % (Auto) Neut # (Auto) Lymph # (Auto) [place] # (Auto) Eos # (Auto) Baso # (Auto) WBC Differential Differential Comment Sodium Potassium Chloride Carbon Dioxide Anion Gap BUN Creatinine Estimated GFR POC Glucose 143 H Random Glucose Calcium Phosphorus Magnesium Total Bilirubin AST ALT Alkaline Phosphatase Total Protein Albumin TSH Free T4 Microbiology 08/20/18 23:10 Blood - Peripheral Aerobic Blood Culture - Preliminary No growth in 4 days 08/20/18 23:10 Blood - Peripheral Anaerobic Blood Culture - Final QNS - See aerobic report. 08/20/18 23:05 Blood - Peripheral Aerobic Blood Culture - Preliminary No growth in 4 days 08/20/18 23:05 Blood - Peripheral Anaerobic Blood Culture - Final QNS - See aerobic report. - Procedures none Assessment and Plan - Plan 63-year-old female with Acute compensated systolic heart failure secondary to thyrotoxicosis History of essential hypertension Small pericardial effusion -on propranolol 60 mg every 6 hours will likely switch to Coreg -Likely will start MARII inhibitor -2D echo showed EF of 20-25% with left atrial enlargement -Seen by cardiology but no procedures recommended Acute respiratory failure secondary to pulmonary edema and left pleural effusion -Appreciate input from pulmonary medicine -Incentive spirometry -Duo nebs -Right pleural effusion Thyroid storm/history of hyperthyroidism -TSH was less than 0.005 free T4 was 3.49 total T3 was 94 -Started on propylthiouracil 100 mg 3 times a day but Lugol's iodine 5 drops 3 times a day -On hydrocortisone 100 mg IV every 8 -On cholestyramine 4 g twice daily Noncompliance with medications -Advised on compliance with medical care Fevers/pyrexia possibly secondary to thyrotoxicosis-resolved Acute hyperkalemia -Resolved Lower extremity edema. -Bilateral Doppler ultrasound shows no deep vein thrombosis PT to treat and eval GI prophylaxis with Protonix DVT prophylaxis with SCDs and q. heparin
[2018-08-24 16:20] LABS: Hemoglobin A1c 4.5 % (4.3-6.0)
--- NOTE | 2018-08-24 16:48 | P.PNPL ---
Subjective Interval history: 63 YO Female with Hyperthyroidism with sob, pulm odema Breathing much better Appetite improving Weaned to RA Ambulates Physical Exam Vital signs: Vital Signs 08/23/18 17:05 08/23/18 17:16 08/23/18 20:00 Temperature 98 F 98 F 97.7 F Pulse Rate 70 89 78 Respiratory Rate 18 16 18 Blood Pressure 169/90 H 162/85 H 168/80 H Pulse Oximetry 98 98 98 08/24/18 00:00 08/24/18 00:19 08/24/18 04:00 Temperature 98.0 F 97.7 F Pulse Rate 74 79 83 Respiratory Rate 18 16 18 Blood Pressure 167/87 H 159/90 H Pulse Oximetry 96 94 L 08/24/18 08:00 08/24/18 12:00 08/24/18 15:44 Temperature 97.7 F 98 F 98.3 F Pulse Rate 80 79 77 Respiratory Rate 20 20 20 Blood Pressure 178/88 H 165/92 H 174/98 H Pulse Oximetry 98 98 98 Intake & Output 08/23/18 08/24/18 08/24/18 18:59 06:59 18:59 Intake Total 240 / 240 340 / 340 Output Total 175 / 175 Balance -175 / -175 240 / 240 340 / 340 Intake: Oral 240 / 240 240 / 240 Oral Supplement 100 / 100 Output: Urine Amount (Catheter) 175 / 175 Female External 175 / 175 Other: # Voids 2 # Incontinent Voids 2 1 # Urine Diapers 4 Date of Last Bowel Movement 08/23/18 08/23/18 08/23/18 # Bowel Movements 1 # Incontinent Bowel Movements 1 GENERAL: Thin built elderly female, NAD SKIN: Warm and dry. HEAD: Normocephalic. EYES: No scleral icterus. No injection or drainage. NECK: Supple, trachea midline. No JVD or lymphadenopathy. CARDIOVASCULAR: Regular rate and rhythm without murmurs, gallops, or rubs. RESPIRATORY: Breath sounds equal bilaterally. No accessory muscle use. GASTROINTESTINAL: Abdomen soft, non-tender, nondistended. MUSCULOSKELETAL: No cyanosis, or edema. BACK: Nontender without obvious deformity. No CVA tenderness. - Urinary Catheter Management Female External Cath placed during this visit: no Assessment and Plan - Plan IMPRESSION: 1. Hyperthyroidism. 2. Thyrotoxicosis. 3. Hypertension. 4. Congestive heart failure. PLAN: Diurease monitor Lytes Hydrocortisone 100 mg q 6 hrs SQ Heparin 5000 IU bid. Stable on RA
[2018-08-25] MEDS ORDERED: Propranolol 40 MG Tablet PO ONE (00:16)
[2018-08-25] MEDS: Chlorhexidine Gluconate 2% 1 Pack (2 Cloths) TOPICAL SCH (04:05)
[2018-08-25] MEDS: Propranolol 40 MG Tablet PO SCH ×4 (04:08→21:00)
[2018-08-25] MEDS: Hydrocortisone Sod Succinate 100 MG Vial IV.PUSH SCH ×3 (06:06→21:00)
[2018-08-25] MEDS: Heparin - SQ 10,000 UNITS/ML Vial SQ SCH ×2 (06:06→19:00)
[2018-08-25] MEDS: Insulin NovoLOG Aspart Correctional Sugar Inj SQ SCH ×4 (09:22→20:56)
[2018-08-25] MEDS: IODINE PO SCH ×3 (11:16→17:21)
[2018-08-25] MEDS: [UNRECOGNIZED DRUG - OTHER] PO SCH ×3 (11:16→17:21)
--- NOTE | 2018-08-25 12:59 | P.PN ---
Subjective Interval history: Follow-up acute decompensated heart failure secondary to thyrotoxicosis August 24, 2018-patient seen and examined, denies any chest pain or shortness of breath. States she will be compliant with her medicines from now on. August 25, 2018-patient seen and examined, labile BP however denies any headache, shortness of breath or chest pain. Physical Exam Vital signs: Vital Signs 08/24/18 15:44 08/24/18 20:00 08/25/18 00:00 Temperature 98.3 F 97.8 F 97.2 F L Pulse Rate 77 80 89 Respiratory Rate 20 18 18 Blood Pressure 174/98 H 168/73 H 183/113 H Pulse Oximetry 98 98 95 08/25/18 01:44 08/25/18 04:00 08/25/18 07:56 Temperature 97.9 F 98.2 F Pulse Rate 74 81 89 Respiratory Rate 18 17 18 Blood Pressure 177/86 H 183/101 H 184/109 H Pulse Oximetry 95 96 96 08/25/18 11:47 Temperature 97.4 F L Pulse Rate 76 Respiratory Rate 18 Blood Pressure 159/91 H Pulse Oximetry 93 L Intake & Output 08/24/18 08/25/18 08/25/18 18:59 06:59 18:59 Intake Total 340 / 340 320 / 320 Balance 340 / 340 320 / 320 Weight 59.2 kg Intake: Oral 240 / 240 320 / 320 Oral Supplement 100 / 100 Other: # Voids 2 # Incontinent Voids 1 # Urine Diapers 4 Date of Last Bowel Movement 08/23/18 08/23/18 # Incontinent Bowel Movements 1 Narrative: GENERAL: NAD SKIN: Warm and dry. No rash HEAD: Atraumatic. Normocephalic. EYES: Pupils equal and round about 3 members bilaterally reactive. No scleral icterus. No injection or drainage. ENT: No nasal bleeding or discharge. Mucous membranes pink and moist. NECK: Trachea midline. No JVD. CARDIOVASCULAR: Regular rate and rhythm. S1, S2. No S4. RESPIRATORY: Few crackles appreciated bases. No wheezing.. GASTROINTESTINAL: Abdomen soft, non-tender, nondistended. Hepatic and splenic margins not palpable. MUSCULOSKELETAL: Extremities without significant peripheral edema. No obvious deformities. NEUROLOGICAL: Awake and alert. No obvious cranial nerve deficits. Motor grossly within normal limits. Five out of 5 muscle strength in the arms and legs. Normal speech. Insight and judgment is good - Urinary Catheter Management Female External Cath placed during this visit: no Results - Labs CBC & Chem 7: 08/24/18 04:29 08/24/18 04:29 Laboratory Results - last 24 hr 08/24/18 08/24/18 08/24/18 04:29 16:26 17:11 POC Glucose 156 H 164 H Hemoglobin A1c 4.5 08/24/18 08/24/18 08/25/18 20:43 23:41 07:44 POC Glucose 159 H 104 114 H Hemoglobin A1c 08/25/18 11:42 POC Glucose 248 H Hemoglobin A1c Microbiology 08/20/18 23:10 Blood - Peripheral Aerobic Blood Culture - Final No growth in 5 days 08/20/18 23:10 Blood - Peripheral Anaerobic Blood Culture - Final QNS - See aerobic report. 08/20/18 23:05 Blood - Peripheral Aerobic Blood Culture - Final No growth in 5 days 08/20/18 23:05 Blood - Peripheral Anaerobic Blood Culture - Final QNS - See aerobic report. - Procedures none Assessment and Plan - Plan 63-year-old female with Acute compensated systolic heart failure secondary to thyrotoxicosis History of essential hypertension Small pericardial effusion -on propranolol 40 mg every 6 hours will likely switch to Coreg -Likely will start MARII inhibitor -2D echo showed EF of 20-25% with left atrial enlargement -Seen by cardiology but no procedures recommended Benign labile hypertension Currently on propranolol 40mg QID; will switch clonidine PRN Acute respiratory failure secondary to pulmonary edema and left pleural effusion -Appreciate input from pulmonary medicine -Incentive spirometry -Duo nebs -Right pleural effusion Thyroid storm/history of hyperthyroidism -TSH was less than 0.005 free T4 was 3.49 total T3 was 94 -On propylthiouracil 100 mg 3 times a day but Lugol's iodine 5 drops 3 times a day -On hydrocortisone 100 mg IV every 8; will wean off -On cholestyramine 4 g twice daily Noncompliance with medications -Advised on compliance with medical care Fevers/pyrexia possibly secondary to thyrotoxicosis-resolved Acute hyperkalemia -Resolved Lower extremity edema. -Bilateral Doppler ultrasound shows no deep vein thrombosis PT to treat and eval GI prophylaxis with Protonix DVT prophylaxis with SCDs and q. heparin
--- NOTE | 2018-08-25 19:51 | P.PNPL ---
Subjective Interval history: 63 YO Female with Hyperthyroidism with sob, pulm odema Breathing much better Appetite improving Weaned to RA Ambulates Physical Exam Vital signs: Vital Signs 08/24/18 20:00 08/25/18 00:00 08/25/18 01:44 Temperature 97.8 F 97.2 F L 97.9 F Pulse Rate 80 89 74 Respiratory Rate 18 18 Blood Pressure 168/73 H 183/113 H 177/86 H Pulse Oximetry 98 95 95 08/25/18 04:00 08/25/18 07:56 08/25/18 11:47 Temperature 98.2 F 97.4 F L Pulse Rate 81 89 76 Respiratory Rate 17 18 Blood Pressure 183/101 H 184/109 H 159/91 H Pulse Oximetry 96 96 93 L 08/25/18 15:45 Temperature 97.4 F L Pulse Rate 68 Respiratory Rate 18 Blood Pressure 121/71 Pulse Oximetry 98 Intake & Output 08/25/18 08/25/18 08/26/18 06:59 18:59 06:59 Intake Total 320 / 320 400 / 400 Balance 320 / 320 400 / 400 Weight 59.2 kg Intake: Oral 320 / 320 400 / 400 Other: # Voids 2 Date of Last Bowel Movement 08/23/18 # Bowel Movements 1 GENERAL: Thin built WF,NAD SKIN: Warm and dry. HEAD: Normocephalic. EYES: No scleral icterus. No injection or drainage. NECK: Supple, trachea midline. No JVD or lymphadenopathy. CARDIOVASCULAR: Regular rate and rhythm without murmurs, gallops, or rubs. RESPIRATORY: Breath sounds equal bilaterally. No accessory muscle use. GASTROINTESTINAL: Abdomen soft, non-tender, nondistended. MUSCULOSKELETAL: No cyanosis, or edema. BACK: Nontender without obvious deformity. No CVA tenderness. - Urinary Catheter Management Female External Cath placed during this visit: no Assessment and Plan - Plan IMPRESSION: 1. Hyperthyroidism. 2. Thyrotoxicosis. 3. Hypertension. 4. Congestive heart failure. PLAN: Diurease monitor Lytes DecreaseHydrocortisone 50 mg q 8 hrs SQ Heparin 5000 IU bid. Stable on RA
[2018-08-26] MEDS: Propranolol 40 MG Tablet PO SCH ×4 (04:21→21:16)
[2018-08-26] MEDS: Heparin - SQ 10,000 UNITS/ML Vial SQ SCH ×2 (06:26→18:33)
[2018-08-26] MEDS: Hydrocortisone Sod Succinate 100 MG Vial IV.PUSH SCH (06:26)
[2018-08-26 08:15] LABS: Baso % (Auto) 0.4 % (0.0-2.0); Eos % (Auto) 0.2 % (0.0-4.0); Hematocrit 39.7 % (35.0-46.0); Hemoglobin 13.1 gm/dL (11.6-15.3); Lymph # (Auto) 0.3 th/mm3 (1.0-4.8); Lymph % (Auto) 4.1 % (9.0-44.0); Mean Corpuscular HGB Conc 32.9 % (32.0-36.0); Mean Corpuscular Hemoglobin 28.5 pg (27.0-34.0); Mean Corpuscular Volume 86.5 fL (80.0-100.0); Mean Platelet Volume 11.2 fL (7.0-11.0); Mono # (Auto) 0.8 th/mm3 (0.0-0.9); Mono % (Auto) 11.3 % (0.0-8.0); Neut # (Auto) 5.9 th/mm3 (1.8-7.7); Platelet Count 181 th/mm3 (150-450); Red Blood Count 4.59 mil/mm3 (4.00-5.30); Red Cell Distribution Width 14.2 % (11.6-17.2)
[2018-08-26 08:19] LABS: Alanine Aminotransferase 124 U/L (10-53); Albumin 2.6 g/dL (3.4-5.0); Anion Gap 8 meq/L (5-15); Aspartate Aminotransferase 22 U/L (15-37); Blood Urea Nitrogen 24 mg/dL (7-18); Calcium 7.6 mg/dL (8.5-10.1); Carbon Dioxide 28.6 meq/L (21.0-32.0); Chloride 105 meq/L (98-107); Glomerular Filtration Rate 55 mL/min (>89); Glucose,Random 120 mg/dL (74-106); Potassium 3.7 meq/L (3.5-5.1); Sodium 142 meq/L (136-145)
[2018-08-26 08:29] LABS: Alkaline Phosphatase 54 U/L (45-117); Free T4 (Free Thyroxine) 1.68 ng/dL (0.76-1.46); Total Protein 5.6 g/dL (6.4-8.2)
[2018-08-26] MEDS: [UNRECOGNIZED DRUG - OTHER] PO SCH ×3 (08:49→17:44)
[2018-08-26] MEDS: IODINE PO SCH ×3 (08:49→17:44)
[2018-08-26] MEDS ORDERED: Hydrocortisone Sod Succinate 100 MG Vial IV.PUSH SCH (09:00)
[2018-08-26] MEDS: Insulin NovoLOG Aspart Correctional Sugar Inj SQ SCH ×3 (11:37→18:52)
--- NOTE | 2018-08-26 14:06 | P.PN ---
Subjective Interval history: Follow-up acute decompensated heart failure secondary to thyrotoxicosis August 24, 2018-patient seen and examined, denies any chest pain or shortness of breath. States she will be compliant with her medicines from now on. August 25, 2018-patient seen and examined, labile BP however denies any headache, shortness of breath or chest pain. August 26, 2018-patient seen and examined, stable and no complaint Physical Exam Vital signs: Vital Signs 08/25/18 15:45 08/25/18 20:00 08/26/18 00:00 Temperature 97.4 F L 97.4 F L 98.5 F Pulse Rate 68 79 78 Respiratory Rate Blood Pressure 121/71 149/74 H 154/80 H Pulse Oximetry 98 99 97 08/26/18 04:00 08/26/18 08:00 08/26/18 12:00 Temperature 97.6 F 98 F 97.4 F L Pulse Rate 75 72 69 Respiratory Rate Blood Pressure 167/88 H 153/80 H 148/73 H Pulse Oximetry 98 98 99 Intake & Output 08/25/18 08/26/18 08/26/18 18:59 06:59 18:59 Intake Total 400 / 400 Balance 400 / 400 Weight 59.3 kg Intake: Oral 400 / 400 Other: # Voids 1 # Incontinent Voids 2 Date of Last Bowel Movement 08/24/18 08/24/18 # Bowel Movements 1 Narrative: GENERAL: NAD SKIN: Warm and dry. No rash HEAD: Atraumatic. Normocephalic. EYES: Pupils equal and round about 3 members bilaterally reactive. No scleral icterus. No injection or drainage. ENT: No nasal bleeding or discharge. Mucous membranes pink and moist. NECK: Trachea midline. No JVD. CARDIOVASCULAR: Regular rate and rhythm. S1, S2. No S4. RESPIRATORY: Few crackles appreciated bases. No wheezing.. GASTROINTESTINAL: Abdomen soft, non-tender, nondistended. Hepatic and splenic margins not palpable. MUSCULOSKELETAL: Extremities without significant peripheral edema. No obvious deformities. NEUROLOGICAL: Awake and alert. No obvious cranial nerve deficits. Motor grossly within normal limits. Five out of 5 muscle strength in the arms and legs. Normal speech. Insight and judgment is good - Urinary Catheter Management Female External Cath placed during this visit: no Results - Labs CBC & Chem 7: 08/26/18 06:58 08/26/18 06:58 Laboratory Results - last 24 hr 08/25/18 08/25/18 08/26/18 16:41 20:50 06:58 WBC 7.0 RBC 4.59 Hgb 13.1 Hct 39.7 MCV 86.5 MCH 28.5 MCHC 32.9 RDW 14.2 Plt Count 181 MPV 11.2 H Neut % (Auto) 84.0 H Lymph % (Auto) 4.1 L [place] % (Auto) 11.3 H Eos % (Auto) 0.2 Baso % (Auto) 0.4 Neut # (Auto) 5.9 Lymph # (Auto) 0.3 L [place] # (Auto) 0.8 Eos # (Auto) 0.0 Baso # (Auto) 0.0 WBC Differential . Differential Comment Auto diff final Sodium Potassium Chloride Carbon Dioxide Anion Gap BUN Creatinine Estimated GFR POC Glucose 164 H 273 H Random Glucose Calcium Total Bilirubin AST ALT Alkaline Phosphatase Total Protein Albumin TSH Free T4 08/26/18 08/26/18 08/26/18 06:58 08:46 11:54 WBC RBC Hgb Hct MCV MCH MCHC RDW Plt Count MPV Neut % (Auto) Lymph % (Auto) [place] % (Auto) Eos % (Auto) Baso % (Auto) Neut # (Auto) Lymph # (Auto) [place] # (Auto) Eos # (Auto) Baso # (Auto) WBC Differential Differential Comment Sodium 142 Potassium 3.7 Chloride 105 Carbon Dioxide 28.6 Anion Gap 8 BUN 24 H Creatinine 1.20 H Estimated GFR 55 L POC Glucose 130 H 232 H Random Glucose 120 H Calcium 7.6 L Total Bilirubin 2.0 H AST 22 ALT 124 H Alkaline Phosphatase 54 Total Protein 5.6 L D Albumin 2.6 L TSH Less than 0.005 L Free T4 1.68 H Microbiology 08/20/18 23:10 Blood - Peripheral Aerobic Blood Culture - Final No growth in 5 days 08/20/18 23:10 Blood - Peripheral Anaerobic Blood Culture - Final QNS - See aerobic report. 08/20/18 23:05 Blood - Peripheral Aerobic Blood Culture - Final No growth in 5 days 08/20/18 23:05 Blood - Peripheral Anaerobic Blood Culture - Final QNS - See aerobic report. - Procedures none Assessment and Plan - Plan 63-year-old female with Acute compensated systolic heart failure secondary to thyrotoxicosis History of essential hypertension Small pericardial effusion -on propranolol 40 mg every 6 hours -Likely will start MARII inhibitor -2D echo showed EF of 20-25% with left atrial enlargement -Seen by cardiology but no procedures recommended Benign labile hypertension-Improving Currently on propranolol 40mg QID clonidine PRN Acute respiratory failure secondary to pulmonary edema and left pleural effusion -Appreciate input from pulmonary medicine -Incentive spirometry -Duo nebs -Right pleural effusion Thyroid storm/history of hyperthyroidism -TSH was less than 0.005 free T4 was 3.49 total T3 was 94. Repeat labs reviewed this AM -On propylthiouracil 100 mg 3 times a day but Lugol's iodine 5 drops 3 times a day. Will Start MTU tomorrow 08/26 and d/c PTU as well as Lugol -On hydrocortisone 100 mg IV every 24; will d/c after today's dose -On cholestyramine 4 g twice daily Noncompliance with medications -Advised on compliance with medical care Fevers/pyrexia possibly secondary to thyrotoxicosis-resolved Acute hyperkalemia -Resolved Lower extremity edema. -Bilateral Doppler ultrasound shows no deep vein thrombosis PT to treat and eval GI prophylaxis with Protonix DVT prophylaxis with SCDs and q. heparin
--- NOTE | 2018-08-26 18:30 | P.PNPL ---
Subjective Interval history: 63 YO Female with Hyperthyroidism with sob, pulm odema Breathing much better Appetite improving Weaned to RA Ambulates No new complaint Physical Exam Vital signs: Vital Signs 08/25/18 20:00 08/26/18 00:00 08/26/18 04:00 Temperature 97.4 F L 98.5 F 97.6 F Pulse Rate 79 78 75 Respiratory Rate Blood Pressure 149/74 H 154/80 H 167/88 H Pulse Oximetry 99 97 98 08/26/18 08:00 08/26/18 12:00 08/26/18 16:00 Temperature 98 F 97.4 F L 98.5 F Pulse Rate 72 69 71 Respiratory Rate Blood Pressure 153/80 H 148/73 H 156/83 H Pulse Oximetry 98 99 98 Intake & Output 08/25/18 08/26/18 08/26/18 18:59 06:59 18:59 Intake Total 400 / 400 840 / 840 Balance 400 / 400 840 / 840 Weight 59.3 kg Intake: Oral 400 / 400 840 / 840 Other: # Voids 1 1 # Incontinent Voids 2 # Urine Diapers 1 Date of Last Bowel Movement 08/24/18 08/24/18 # Bowel Movements 1 GENERAL: Thin built elderly female, NAD SKIN: Warm and dry. HEAD: Normocephalic. EYES: No scleral icterus. No injection or drainage. NECK: Supple, trachea midline. No JVD or lymphadenopathy. CARDIOVASCULAR: Regular rate and rhythm without murmurs, gallops, or rubs. RESPIRATORY: Breath sounds equal bilaterally. No accessory muscle use. GASTROINTESTINAL: Abdomen soft, non-tender, nondistended. MUSCULOSKELETAL: No cyanosis, or edema. BACK: Nontender without obvious deformity. No CVA tenderness. - Urinary Catheter Management Female External Cath placed during this visit: no Assessment and Plan - Plan IMPRESSION: 1. Hyperthyroidism. 2. Thyrotoxicosis. 3. Hypertension. 4. Congestive heart failure. PLAN: Diurease monitor Lytes DecreaseHydrocortisone 50 mg q 8 hrs SQ Heparin 5000 IU bid. Stable on RA DC plans underway
[2018-08-27] MEDS: Insulin NovoLOG Aspart Correctional Sugar Inj SQ SCH ×3 (00:38→14:43)
[2018-08-27] MEDS: Propranolol 40 MG Tablet PO SCH ×2 (04:29→14:42)
[2018-08-27] MEDS: Heparin - SQ 10,000 UNITS/ML Vial SQ SCH (06:23)
--- NOTE | 2018-08-27 11:42 | P.PN ---
Subjective Interval history: Follow-up acute decompensated heart failure secondary to thyrotoxicosis August 24, 2018-patient seen and examined, denies any chest pain or shortness of breath. States she will be compliant with her medicines from now on. August 25, 2018-patient seen and examined, labile BP however denies any headache, shortness of breath or chest pain. August 26, 2018-patient seen and examined, stable and no complaint August 27, 2018-patient seen and examined, denies any shortness of breath or chest pain. Looking for discharge home today. Physical Exam Vital signs: Vital Signs 08/26/18 16:00 08/26/18 20:00 08/27/18 00:00 Temperature 98.5 F 97.9 F 98.1 F Pulse Rate 71 75 67 Respiratory Rate 18 18 Blood Pressure 156/83 H 166/81 H 163/78 H Pulse Oximetry 98 99 98 08/27/18 04:00 08/27/18 07:48 Temperature 98.1 F 97.4 F L Pulse Rate 71 70 Respiratory Rate 18 Blood Pressure 178/94 H 153/89 H Pulse Oximetry 98 99 Intake & Output 08/26/18 08/27/18 08/27/18 19:59 06:59 18:59 Intake Total Balance Intake: Oral Other: # Voids # Urine Diapers Date of Last Bowel Movement 08/24/18 Narrative: GENERAL: NAD SKIN: Warm and dry. No rash HEAD: Atraumatic. Normocephalic. EYES: Pupils equal and round about 3 members bilaterally reactive. No scleral icterus. No injection or drainage. ENT: No nasal bleeding or discharge. Mucous membranes pink and moist. NECK: Trachea midline. No JVD. CARDIOVASCULAR: Regular rate and rhythm. S1, S2. No S4. RESPIRATORY: Few crackles appreciated bases. No wheezing.. GASTROINTESTINAL: Abdomen soft, non-tender, nondistended. Hepatic and splenic margins not palpable. MUSCULOSKELETAL: Extremities without significant peripheral edema. No obvious deformities. NEUROLOGICAL: Awake and alert. No obvious cranial nerve deficits. Motor grossly within normal limits. Five out of 5 muscle strength in the arms and legs. Normal speech. Insight and judgment is good - Urinary Catheter Management Female External Cath placed during this visit: no Results - Labs CBC & Chem 7: 08/26/18 06:58 08/26/18 06:58 Laboratory Results - last 24 hr 08/26/18 08/27/18 08/27/18 17:42 00:27 06:24 POC Glucose 168 H 138 H 107 08/27/18 07:44 POC Glucose 113 H - Procedures none Assessment and Plan - Plan 63-year-old female with Acute compensated systolic heart failure secondary to thyrotoxicosis History of essential hypertension Small pericardial effusion -on propranolol 40 mg every 6 hours -2D echo showed EF of 20-25% with left atrial enlargement -Seen by cardiology but no procedures recommended Benign labile hypertension-Improving Currently on propranolol 40mg QID clonidine PRN Acute respiratory failure secondary to pulmonary edema and left pleural effusion -Appreciate input from pulmonary medicine -Incentive spirometry -Duo nebs -Right pleural effusion Thyroid storm/history of hyperthyroidism -TSH was less than 0.005 free T4 was 3.49 total T3 was 94. Repeat labs reviewed this AM -s/p propylthiouracil 100 mg 3 times a day , Lugol's iodine 5 drops 3 times a day. Now on MTU 10mg daily -d/c hydrocortisone 100 mg IV every 24 -On cholestyramine 4 g twice daily Noncompliance with medications -Advised on compliance with medical care Fevers/pyrexia possibly secondary to thyrotoxicosis-resolved Acute hyperkalemia -Resolved Lower extremity edema. -Bilateral Doppler ultrasound shows no deep vein thrombosis PT to treat and eval GI prophylaxis with Protonix DVT prophylaxis with SCDs and q. heparin
--- NOTE | 2018-08-27 11:43 | P.DS ---
Date of admission: 08/20/18 06:20 Primary care physician: No Primary Care Physician Brief History from admission: This is a 63-year-old AA female. Date of admission 08/20/2018. Past medical history includes hypothyroidism for the past 3 years and essential hypertension. Patient has been off her methimazole for the past 1 month. Patient presents to [facility] with a 2-3 history of worsening shortness of breath and lower extremity edema. When she arrived, patient was noted to be short of breath with a heart rate in the 200s possibly atrial fib versus SVT and altered mental status. Her thyroid storm score was positive at 50 with tachycardia, pulmonary edema, altered mental status. At that facility, patient did receive 10 mg diltiazem followed by 15 mg diltiazem and 20 mg per propranolol. Afterwards, patient was started on an esmolol drip CT pulmonary revealed no central pulmonary. Left greater than right pleural effusion. Mild pulmonary edema. Her troponin was slightly elevated at 0.12. Potassium is 3.0. Her TSH was less than 0.005. Free T4 is elevated along with free T3. She is currently being treated as thyroid storm. She is transported to [facility]. She will be transitioned to propylthiouracil, Lugol's iodine, hydrochlorothiazide and cholestyramine we will monitor closely in the intensive care unit DS: Medications - Discharge Medications Prescriptions: methimazole 10 mg PO DAILY #30 tab propranolol 40 mg PO Q6H #120 tab DS: Summary Hospital Course: While in hospital, patient was treated for: Acute compensated systolic heart failure secondary to thyrotoxicosis History of essential hypertension Small pericardial effusion -Treated with propranolol 40 mg every 6 hours -2D echo showed EF of 20-25% with left atrial enlargement -Seen by cardiology but no procedures recommended Benign labile hypertension-Improving Treated with propranolol 40mg QID clonidine PRN Acute respiratory failure secondary to pulmonary edema and left pleural effusion -Appreciate input from pulmonary medicine -Incentive spirometry -Duo nebs -Right pleural effusion Thyroid storm/history of hyperthyroidism -TSH was less than 0.005 free T4 was 3.49 total T3 was 94. Repeat labs reviewed this AM -s/p propylthiouracil 100 mg 3 times a day , Lugol's iodine 5 drops 3 times a day. Now on MTU 10mg daily -d/c hydrocortisone 100 mg IV every 24 -On cholestyramine 4 g twice daily Noncompliance with medications -Advised on compliance with medical care Fevers/pyrexia possibly secondary to thyrotoxicosis-resolved Acute hyperkalemia -Resolved Lower extremity edema. -Bilateral Doppler ultrasound shows no deep vein thrombosis PT to treat and eval GI prophylaxis with Protonix DVT prophylaxis with SCDs and q. heparin Discharge patient home on MTU 10 mg daily, propranolol 40 mg 4 times daily - Time Spent with Patient Total time spent providing and/or coordinating discharge services: Less than 30 minutes - Quality: VTE Deep Vein Thrombosis/Pulmonary Embolism Present on Admission: No Exam Vital signs: Vital Signs 08/26/18 16:00 08/26/18 20:00 08/27/18 00:00 Temperature 98.5 F 97.9 F 98.1 F Pulse Rate 71 75 67 Respiratory Rate 18 18 18 Blood Pressure 156/83 H 166/81 H 163/78 H Pulse Oximetry 98 99 98 08/27/18 04:00 08/27/18 07:48 Temperature 98.1 F 97.4 F L Pulse Rate 71 70 Respiratory Rate 18 18 Blood Pressure 178/94 H 153/89 H Pulse Oximetry 98 99 Intake & Output 08/26/18 08/27/18 08/27/18 19:59 06:59 18:59 Intake Total Balance Intake: Oral Other: # Voids # Urine Diapers Date of Last Bowel Movement 08/24/18 Narrative: GENERAL: NAD SKIN: Warm and dry. No rash HEAD: Atraumatic. Normocephalic. EYES: Pupils equal and round about 3 members bilaterally reactive. No scleral icterus. No injection or drainage. ENT: No nasal bleeding or discharge. Mucous membranes pink and moist. NECK: Trachea midline. No JVD. CARDIOVASCULAR: Regular rate and rhythm. S1, S2. No S4. RESPIRATORY: Few crackles appreciated bases. No wheezing.. GASTROINTESTINAL: Abdomen soft, non-tender, nondistended. Hepatic and splenic margins not palpable. MUSCULOSKELETAL: Extremities without significant peripheral edema. No obvious deformities. NEUROLOGICAL: Awake and alert. No obvious cranial nerve deficits. Motor grossly within normal limits. Five out of 5 muscle strength in the arms and legs. Normal speech. Insight and judgment is good Results Procedures completed during hospitalization: none Labs on day of discharge: Labs from last 24 hours 11/04/18 11/04/18 11/04/18 07:44 06:24 00:27 POC Glucose 113 H 107 138 H 08/26/18 17:42 POC Glucose 168 H - Impressions ITS Impressions Venous Doppler Study 08/20/18 00:00 CONCLUSION: No venous thrombosis is identified within either lower extremity. Liver Ultrasound 08/21/18 00:00 CONCLUSION: 1. Mild increased echogenicity right kidney otherwise negative Chest X-Ray 08/22/18 06:00 CONCLUSION: Slightly worse consolidation and small effusions at each lung base. Discharge Plan - Discharge Disposition Patient Disposition: Discharge Home - Discharge Condition Condition: Fair - Discharge Order Discharge Orders: Discharge Order (Routine); Ordered 08/27/18 Ordered By: Jose M Jim - Physicians Team Primary Care Provider: Primary Care Kayla Mcgee Attending Provider: Jose M Jim Other Providers: Jeaneth Arellano MD ; Jayden Wellington MD - Rxs /Orders / Referrals /Forms Prescriptions: New methimazole 10 mg Tablet 10 mg PO DAILY Qty: 30 RF: 3 propranolol 40 mg Tablet 40 mg PO Q6H Qty: 120 RF: 0 Discontinued methimazole 5 mg Tablet 5 mg PO DAILY Referrals: Occupational Therapist Aide [Outside] - See Instructions Primary Care Kayla Mcgee [Primary Care Provider] - See Instructions - Discharge Instructions Patient Printed Instructions: Propranolol (By mouth), Methimazole (By mouth), Hyperthyroidism (GEN), Graves Disease (DC)
== END 2018-08-27 12:43 | disposition home or self-care (01) ==
LOC: NEDDLT 02:40 → HIMC 06:20 → N05 08-23 16:20
PROVIDERS: ADMIT Hospitalist; ATTEND Hospitalist

== ENCOUNTER 2018-09-04 15:33 | Inpatient (IN) ==
--- NOTE | 2018-09-04 16:10 | XR ---
EXAM DATE: 09/04/2018 4:06 PM EST AGE/SEX: 63 years / Female INDICATIONS: Short of breath, weakness CLINICAL DATA: This is the patient's initial encounter. Patient reports that signs and symptoms have been present for 1 day and indicates a pain score of Nonresponsive. MEDICAL/SURGICAL HISTORY: Non-responsive. Non-responsive. COMPARISON: [facility] [place], CHEST 1V SINGLE AP, 08/22/2018. . FINDINGS: A single AP view of the chest demonstrates persistent bibasilar opacification, likely a combination o f pleural fluid and airspace disease. Increased hazy opacification of the mid and upper lung lao, particularly on the right. The cardiomediastinal contours are partially obscured, though grossly stab le. Hypertrophic changes of the spine. CONCLUSION: 1. Persistent bibasilar opacification, likely a combination of pleural fluid and airspace disease. 2. Increased hazy opacification of the mid and upper lung, particularly on the right. Electronically signed by: Italia Hernandez MD 09/04/2018 4:08 PM EST
[2018-09-04 16:25] LABS: ABG Base Excess 0.7 mmol/L (-2-2); ABG PCO2 52 mmHg (38-42); ABG PO2 64 mmHg (61-120)
[2018-09-04 16:40] LABS: Baso # (Auto) 0.1 th/mm3 (0.0-0.2); Baso % (Auto) 0.8 % (0.0-2.0); Eos # (Auto) 0.1 th/mm3 (0.0-0.4); Eos % (Auto) 0.7 % (0.0-4.0); Hematocrit 44.9 % (35.0-46.0); Hemoglobin 14.6 gm/dL (11.6-15.3); Lymph # (Auto) 2.2 th/mm3 (1.0-4.8); Lymph % (Auto) 24.3 % (9.0-44.0); Mean Corpuscular HGB Conc 32.6 % (32.0-36.0); Mean Corpuscular Volume 89.2 fL (80.0-100.0); Mean Platelet Volume 11.3 fL (7.0-11.0); Mono # (Auto) 0.7 th/mm3 (0.0-0.9); Mono % (Auto) 7.4 % (0.0-8.0); Neut # (Auto) 5.9 th/mm3 (1.8-7.7); Neut % (Auto) 66.8 % (16.0-70.0); Platelet Count 178 th/mm3 (150-450); Red Blood Count 5.04 mil/mm3 (4.00-5.30); Red Cell Distribution Width 17.1 % (11.6-17.2); White Blood Count 8.9 th/mm3 (4.0-11.0)
[2018-09-04 16:55] LABS: Albumin 3.2 g/dL (3.4-5.0); Anion Gap 14 meq/L (5-15); Aspartate Aminotransferase 35 U/L (15-37); Blood Urea Nitrogen 22 mg/dL (7-18); Calcium 8.6 mg/dL (8.5-10.1); Carbon Dioxide 22.8 meq/L (21.0-32.0); Chloride 104 meq/L (98-107); Glomerular Filtration Rate 49 mL/min (>89); Glucose,Random 211 mg/dL (74-106); Potassium 4.3 meq/L (3.5-5.1); Sodium 141 meq/L (136-145)
[2018-09-04 16:56] LABS: Alanine Aminotransferase 42 U/L (10-53)
[2018-09-04 17:00] LABS: Alkaline Phosphatase 98 U/L (45-117); Total Protein 7.3 g/dL (6.4-8.2); Troponin I 0.17 ng/mL (0.02-0.05)
[2018-09-04 17:06] LABS: Creatine Kinase 77 U/L (26-192)
[2018-09-04 17:10] LABS: Lymphocytes 18 % (9-44); Monocytes 8 % (0-8); Platelet Estimate Normal (Normal)
--- NOTE | 2018-09-04 18:11 | ED ---
HPI General Chief Complaint: Respiratory Symptoms Stated Complaint: SOB Time Seen by Provider: 09/04/18 15:40 History of Present Illness This is a 64-year-old female with a history of hyperthyroidism, CHF, recent respiratory failure, presents today with complaints of severe shortness of breath. Patient was seen in triage and noted to have an O2 sat of 72% out in triage. The patient denies any chest pain, chest pressure. She reports that the shortness of breath became progressively worse over the last 24 hours. The patient also reports lower extremity edema. She is taking her methimazole, propranolol for her hyperthyroidism. She denies being on any water pills/ diuretics. Related Data Previous Rx's Medication Instructions Recorded methimazole 10 mg PO DAILY #30 tab 08/27/18 propranolol 40 mg PO Q6H #120 tab 08/27/18 Allergies Allergy/AdvReac Type Severity Reaction Status Date / Time No Known Allergies Allergy Verified 09/04/18 15:48 Review of Systems ROS: all other systems reviewed are negative (Review of systems limited secondary to the patient's severe shortness of breath.) Constitutional Reports system reviewed and no additional complaints, except as docu Eyes Reports system reviewed and no additional complaints, except as docu ENT Reports as per HPI Cardiovascular Denies chest pain, Reports palpitations and Reports dyspnea Respiratory Denies cough, Denies pain on inspiration and Reports dyspnea Gastrointestinal Reports abdominal pain, Denies nausea and Denies vomiting Genitourinary Reports system reviewed and no additional complaints, except as docu Musculoskeletal Denies neck pain and Reports other (Bilateral lower extremity edema) Integumentary/Breasts Reports system reviewed and no additional complaints, except as docu Neurologic Reports dizziness and Denies headache(s) [facility] Social History Social History Substance History: No History of Abuse Second Hand Smoke Exposure: No Smoking Status: Unknown if ever smoked How Often Do You Have a Drink Containing Alcohol: Never Recent Travel in [facility] within the Last 8 Weeks: No Recent Out of Country Travel within the Last 8 Weeks: No Immunization History Tetanus Immunization Year if Known: 2016 Exam Narrative Exam Narrative: GENERAL: Thin appearing female in moderate to severe respiratory distress. SKIN: Focused skin assessment warm/dry. HEAD: Atraumatic. Normocephalic. EYES: Pupils equal and round. No scleral icterus. No injection or drainage. ENT: No nasal bleeding or discharge. Mucous membranes pink and moist. NECK: Trachea midline. Supple. CARDIOVASCULAR: Regular rate and rhythm. No murmur appreciated. RESPIRATORY: Diffuse expiratory rales bilaterally. GASTROINTESTINAL: Abdomen soft, non-tender, nondistended. MUSCULOSKELETAL: No obvious deformities. No clubbing. No cyanosis. 1+ bilateral pretibial edema. NEUROLOGICAL: Awake and alert. No obvious cranial nerve deficits. Motor grossly within normal limits. Normal speech. Course Initial Documented Vital Signs Pulse Oximetry 90 L 09/04/18 15:35 Last Documented Vital Signs Pulse Rate 87 09/04/18 18:36 Respiratory Rate 28 H 09/04/18 18:36 Blood Pressure 222/112 H 09/04/18 18:36 Pulse Oximetry 95 09/04/18 18:17 Critical Care Time Critical Care Time: Yes Total Critical Care Time: 45 Attestation: Aggregate critical care time was 45 minutes. Time to perform other separately billable procedures was not included in the critical care time. My time did not include minutes spent treating any other patients simultaneously or on activities that did not directly contribute to the patient's treatment. The services I provided to this patient were to treat and/or prevent clinically significant deterioration that could result in: I provided critical care services requiring my management, as noted below: Chart data review, documentation time, medication orders and management, vital sign assessments/reviewing monitor data, ordering and reviewing lab tests, ordering and interpreting/reviewing x-rays and diagnostic studies, care of the patient and discussion of the patient with the admitting physicians. Medical Decision Making MDM Narrative Medical decision making narrative: 63-year-old female with history of hyperthyroidism, presents today with complaints of acute shortness of breath. Patient's O2 sats were 72% on room air when she arrived in triage. She was placed immediately on by Pap. She has been given 40 mg of IV Lasix. Chest x- ray shows congestive heart failure her BNP is greater than 1500. Her blood pressure was also extremely elevated when she came in. She is been given 5 mg of IV Lopressor. She is also had 1 inch of nitroglycerin paste placed on her anterior chest wall. Case was discussed with Dr. Jones, [facility] rehab nurse, who is agreeable to admit the patient to the intensive care unit. Medical Screen Exam Complete: Yes Emergency Medical Condition: Yes Differential Diagnosis Differential Diagnosis: CHF versus pneumonia versus ACS Lab Data Result diagrams: 09/04/18 15:50 09/04/18 15:50 Lab Results 09/04/18 09/04/18 09/04/18 Range/Units 15:50 15:50 15:50 WBC 8.9 (4.0-11.0) th/mm3 RBC 5.04 (4.00-5.30) mil/mm3 Hgb 14.6 (11.6-15.3) gm/dL Hct 44.9 (35.0-46.0) % MCV 89.2 (80.0-100.0) fL MCH 29.0 (27.0-34.0) pg MCHC 32.6 (32.0-36.0) % RDW 17.1 (11.6-17.2) % Plt Count 178 (150-450) th/mm3 MPV 11.3 H (7.0-11.0) fL Prelim Diff (Auto) Slide review pending Neut % (Auto) 66.8 (16.0-70.0) % Lymph % (Auto) 24.3 (9.0-44.0) % [place] % (Auto) 7.4 (0.0-8.0) % Eos % (Auto) 0.7 (0.0-4.0) % Baso % (Auto) 0.8 (0.0-2.0) % Neut # (Auto) 5.9 (1.8-7.7) th/mm3 Lymph # (Auto) 2.2 (1.0-4.8) th/mm3 [place] # (Auto) 0.7 (0.0-0.9) th/mm3 Eos # (Auto) 0.1 (0.0-0.4) th/mm3 Baso # (Auto) 0.1 (0.0-0.2) th/mm3 WBC Differential Manual diff final Seg Neuts % (Manual) 73 H (16-70) % Lymphocytes % (Manual) 18 (9-44) % Monocytes % (Manual) 8 (0-8) % Basophils % (Manual) 1 (0-2) % Abs Neuts (Manual) 6.5 (1.8-7.7) th/mm3 Differential Comment . Platelet Estimate Normal (Normal) Platelet Morphology Enlarged H (Normal) APTT Puncture Site Patient Temperature O2 Saturation (90-100) % ABG pH (7.380-7.420) ABG pCO2 (38-42) mmHg ABG pO2 (61-120) mmHg ABG HCO3 (22-26) mmol/L ABG O2 Content (12.0-20.0) Vol % ABG Base Excess (-2-2) mmol/L ABG Methemoglobin (0-2) % Giovanni Test Hemoglobin (12.0-16.0) G/DL Carboxyhemoglobin (0-4) % O2 Delivery Device Vent Setting Inspired O2 % Critical Value Sodium 141 (136-145) meq/L Potassium 4.3 (3.5-5.1) meq/L Chloride 104 (98-107) meq/L Carbon Dioxide 22.8 (21.0-32.0) meq/L Anion Gap 14 (5-15) meq/L BUN 22 H (7-18) mg/dL Creatinine 1.32 H (0.50-1.00) mg/dL Estimated GFR 49 L (>89) mL/min Random Glucose 211 H (74-106) mg/dL Calcium 8.6 (8.5-10.1) mg/dL Total Bilirubin 1.5 H (0.2-1.0) mg/dL AST 35 (15-37) U/L ALT 42 (10-53) U/L Alkaline Phosphatase 98 (45-117) U/L Total Creatine Kinase 77 (26-192) U/L Troponin I 0.17 H (0.02-0.05) ng/mL B-Natriuretic Peptide 1932 H (0-100) pg/mL Total Protein 7.3 (6.4-8.2) g/dL Albumin 3.2 L (3.4-5.0) g/dL TSH (0.358-3.740) uIU/mL 09/04/18 09/04/18 09/04/18 Range/Units 15:50 15:50 16:17 WBC (4.0-11.0) th/mm3 RBC (4.00-5.30) mil/mm3 Hgb (11.6-15.3) gm/dL Hct (35.0-46.0) % MCV (80.0-100.0) fL MCH (27.0-34.0) pg MCHC (32.0-36.0) % RDW (11.6-17.2) % Plt Count (150-450) th/mm3 MPV (7.0-11.0) fL Prelim Diff (Auto) Neut % (Auto) (16.0-70.0) % Lymph % (Auto) (9.0-44.0) % [place] % (Auto) (0.0-8.0) % Eos % (Auto) (0.0-4.0) % Baso % (Auto) (0.0-2.0) % Neut # (Auto) (1.8-7.7) th/mm3 Lymph # (Auto) (1.0-4.8) th/mm3 [place] # (Auto) (0.0-0.9) th/mm3 Eos # (Auto) (0.0-0.4) th/mm3 Baso # (Auto) (0.0-0.2) th/mm3 WBC Differential Seg Neuts % (Manual) (16-70) % Lymphocytes % (Manual) (9-44) % Monocytes % (Manual) (0-8) % Basophils % (Manual) (0-2) % Abs Neuts (Manual) (1.8-7.7) th/mm3 Differential Comment Platelet Estimate (Normal) Platelet Morphology (Normal) APTT Cancelled Puncture Site Right radial Patient Temperature 98.6 O2 Saturation 89 L* (90-100) % ABG pH 7.32 L (7.380-7.420) ABG pCO2 52 H* (38-42) mmHg ABG pO2 64 (61-120) mmHg ABG HCO3 26 (22-26) mmol/L ABG O2 Content 17.8 (12.0-20.0) Vol % ABG Base Excess 0.7 (-2-2) mmol/L ABG Methemoglobin 0.5 (0-2) % Giovanni Test Present Hemoglobin 14.2 (12.0-16.0) G/DL Carboxyhemoglobin 1.3 (0-4) % O2 Delivery Device Bipap Vent Setting Ipap 12/epap 7/ps 5 Inspired O2 60 % Critical Value Yes Sodium (136-145) meq/L Potassium (3.5-5.1) meq/L Chloride (98-107) meq/L Carbon Dioxide (21.0-32.0) meq/L Anion Gap (5-15) meq/L BUN (7-18) mg/dL Creatinine (0.50-1.00) mg/dL Estimated GFR (>89) mL/min Random Glucose (74-106) mg/dL Calcium (8.5-10.1) mg/dL Total Bilirubin (0.2-1.0) mg/dL AST (15-37) U/L ALT (10-53) U/L Alkaline Phosphatase (45-117) U/L Total Creatine Kinase (26-192) U/L Troponin I (0.02-0.05) ng/mL B-Natriuretic Peptide (0-100) pg/mL Total Protein (6.4-8.2) g/dL Albumin (3.4-5.0) g/dL TSH Less than 0.005 L (0.358-3.740) uIU/mL Imaging Data Radiologist's impression: Chest X-Ray 09/04/18 15:41 CONCLUSION: 1. Persistent bibasilar opacification, likely a combination of pleural fluid and airspace disease. 2. Increased hazy opacification of the mid and upper lung, particularly on the right. Discharge Plan Discharge Disposition Patient Disposition: 30 Still Patient Discharge Details Diagnosis: Acute respiratory failure with hypoxia and hypercapnia, Pulmonary edema, Lower extremity edema, Hyperthyroidism, Elevated troponin Physicians Team ED Provider: Ash Deluca Primary Care Provider: UNKNOWN, Rxs /Orders / Referrals /Forms Prescriptions: No Action propranolol 40 mg Tablet 40 mg PO Q6H Qty: 120 RF: 0 methimazole 10 mg Tablet 10 mg PO DAILY Qty: 30 RF: 3 Discharge Interventions Interventions: Vital Signs Last Done: 09/04/18 18:43 Status ED Status: With Doctor
[2018-09-04] MEDS ORDERED: Metoprolol Inj 5 MG/5 ML Vial IV.PUSH ONE (18:17)
[2018-09-04] MEDS ORDERED: Bisacodyl 10 MG Supp RECTAL PRN (18:45)
[2018-09-04] MEDS ORDERED: Morphine Sulfate Inj 2 MG/ML Vial IV.PUSH PRN (18:45)
[2018-09-04] MEDS ORDERED: Acetaminophen 325 MG Tablet PO PRN (18:45)
[2018-09-04] MEDS ORDERED: Labetalol HCl Inj 100 MG/20 ML Vial IV.PUSH PRN (18:48)
[2018-09-04 19:02] LABS: Activated Partial Thrombo Time 24.3 sec (23.4-31.7); Prothrombin Time 10.6 sec (9.8-11.6)
[2018-09-04] MEDS: Senna/Docusate Sodium 8.6/50 MG Tablet PO SCH (20:37)
[2018-09-04] MEDS: Heparin - SQ 10,000 UNITS/ML Vial SQ SCH (20:43)
--- NOTE | 2018-09-04 20:45 | P.HPCC ---
History of Present Illness Primary Care Physician: UNKNOWN History of Present Illness: 64-year-old female with a history of hyperthyroidism, CHF, recent respiratory failure, presents today with complaints of severe shortness of breath. Patient was seen in triage and noted to have an O2 sat of 72% . The patient denies any chest pain, chest pressure. She reports that the shortness of breath became progressively worse over the last 24 hours. The patient also reports lower extremity edema. She is taking her methimazole, propranolol for her hyperthyroidism. In the emergency department her TSH was found to be less than 0.005 and the patient has been admitted to ICU with a diagnosis of hyperthyroid storm. Inpatient Certification: I certify that the inpatient services were ordered in accordance with Medicare regulations governing the order. This includes certification that hospital inpatient services are reasonable and necessary and in the case of services not specified as inpatient-only under 42 CFR 419.22(n), that they are appropriately provided as inpatient services in accordance to with the 2-midnight benchmark under 43 CFR 412.3(e) Estimated Total Length of Stay (Days): 5 Plans for Post Hospital Care: Not yet determined Review of Systems unobtainable due to mental condition PMFSH - History History Provided By: Patient - Medical History Medical History: Medical History (Last Reviewed 08/25/18 @ 06:47 by Giovanni Norman) Essential hypertension Thyroid crisis or storm Hyperthyroidism - Surgical History Surgical History: Surgical History (Last Reviewed 08/25/18 @ 06:47 by Giovanni Norman) No pertinent past surgical history - Family History Family History: Family History (Last Reviewed 08/20/18 @ 16:25 by Ryan Hansen MD) Mother Heart disease - Tobacco History Second Hand Smoke Exposure: No Tobacco Use In Past 30 Days: No Smoking Status: Unknown if ever smoked - Alcohol History How Often Do You Have a Drink Containing Alcohol: Never - Substance Use History Substance History: No History of Abuse - Travel History Recent Travel in the [place] Within the Last 8 Weeks: No Recent Travel Out of the Country Within the Last 8 Weeks: No - Immunization History Tetanus Immunization: Unable to Assess Tetanus Immunization Year if Known: 2015 Medications and Allergies Active Medications: Active Medications Acetaminophen (Tylenol) 650 mg PO Q6H PRN PRN Reason: PAIN 1-10 AND/OR FEVER >101F Al Hydroxide/Mg Hydroxide (Milk Of Magnesia Liq) 30 ml PO Q12H PRN PRN Reason: Mild Constipation Albuterol (Duoneb Neb (Prn)) 1 ampul NEB Q2HR NEB PRN PRN Reason: WHEEZING Albuterol (Duoneb Neb (Jenny)) 1 ampul NEB Q4HR NEB [facility] Last Admin: 09/04/18 19:40 Dose: 1 ampul Bisacodyl (Dulcolax Supp) 10 mg RECTAL DAILY PRN PRN Reason: SEVERE CONSITIPATION Chlorhexidine Gluconate (Chlorhexidine 2% Cloth) 3 pack TOPICAL DAILY@0400 PRN PRN Reason: Extra cloth needed Stop: 09/10/18 03:59 Chlorhexidine Gluconate (Chlorhexidine 2% Cloth) 3 pack TOPICAL DAILY@0400 JENNY Stop: 09/10/18 03:59 Heparin Sodium (Porcine) (Heparin Inj) 5,000 units SQ Q12H [facility] Azithromycin 500 mg/ Sodium (Chloride) 250 mls @ 250 mls/hr IV.SIG Q24H [facility] Ceftriaxone Sodium 1,000 mg/ (Sodium Chloride) 100 mls @ 200 mls/hr IV.SIG Q24H [facility] Labetalol HCl (Trandate Inj) 10 mg IV.PUSH Q4H PRN PRN Reason: SBP>160, DBP>90 Lactulose (Lactulose Liq) 30 ml PO DAILY PRN PRN Reason: SEVERE CONSITIPATION Methimazole (Tapazole) 10 mg PO DAILY [facility] Morphine Sulfate (Morphine Inj) 2 mg IV.PUSH Q2H PRN PRN Reason: PAIN SCALE 6 TO 10 Ondansetron HCl (Zofran Inj) 4 mg IV.PUSH Q6H PRN PRN Reason: NAUSEA OR VOMITING Propranolol HCl (Inderal) 40 mg PO Q6H [facility] Senna/Docusate Sodium (Paula-Colace) 1 tab PO BID [facility] Last Admin: 09/04/18 20:37 Dose: Not Given Sennosides (Senokot) 17.2 mg PO Q12H PRN PRN Reason: Moderate Constipation Sodium Chloride (Ns Flush) 2 ml IV.FLUSH BID JENNY Sodium Chloride (Ns Flush) 2 ml IV.FLUSH PRN PRN PRN Reason: FLUSH AFTER USING IV ACCESS Temazepam (Restoril) 15 mg PO HS PRN PRN Reason: INSOMNIA Allergies Allergy/AdvReac Type Severity Reaction Status Date / Time No Known Allergies Allergy Verified 09/04/18 15:48 Results - Labs CBC & Chem 7: 09/04/18 15:50 09/04/18 15:50 Labs: Short CBC 09/04/18 Range/Units 15:50 WBC 8.9 (4.0-11.0) th/mm3 Hgb 14.6 (11.6-15.3) gm/dL Hct 44.9 (35.0-46.0) % Plt Count 178 (150-450) th/mm3 BMP 09/04/18 15:50 Sodium 141 Potassium 4.3 Chloride 104 Carbon Dioxide 22.8 BUN 22 H Creatinine 1.32 H Calcium 8.6 Cardiac Enzymes 09/04/18 Range/Units 15:50 Total Creatine Kinase 77 (26-192) U/L Troponin I 0.17 H (0.02-0.05) ng/mL Liver Function 09/04/18 Range/Units 15:50 Total Bilirubin 1.5 H (0.2-1.0) mg/dL AST 35 (15-37) U/L ALT 42 (10-53) U/L Alkaline Phosphatase 98 (45-117) U/L Albumin 3.2 L (3.4-5.0) g/dL - Imaging Impressions Chest CTA 09/04/18 00:00 CONCLUSION: 1. No evidence of pulmonary embolism. 2. Bilateral pulmonary infiltrates now noted right greater than left with dense consolidation in the right lower lobe. The differential diagnosis includes asymmetric congestive heart failure and pneumonia. 3. Small right pleural effusion again noted. 4. Moderate to severe cardiomegaly. Chest X-Ray 09/04/18 15:41 CONCLUSION: 1. Persistent bibasilar opacification, likely a combination of pleural fluid and airspace disease. 2. Increased hazy opacification of the mid and upper lung, particularly on the right. Exam Vital signs: Vital Signs 09/04/18 15:35 09/04/18 15:45 09/04/18 15:49 Pulse Rate 92 H Respiratory Rate 24 Blood Pressure 220/136 H Pulse Oximetry 90 L 94 L 80 L 09/04/18 16:00 09/04/18 17:30 09/04/18 18:17 Pulse Rate 88 82 Respiratory Rate 16 22 Blood Pressure 216/114 H 212/114 H 203/114 H Pulse Oximetry 94 L 95 09/04/18 18:36 09/04/18 18:43 09/04/18 19:08 Pulse Rate 87 Respiratory Rate 28 H Blood Pressure 222/112 H 205/107 H Pulse Oximetry 96 09/04/18 19:40 09/04/18 20:05 Pulse Rate 87 78 Respiratory Rate 22 Blood Pressure 198/100 H Pulse Oximetry 100 Intake & Output 09/04/18 09/04/18 09/05/18 06:59 18:59 06:59 Output Total 300 / 300 Balance -300 / -300 Weight 47.627 kg Output: Urine 300 / 300 Other: # Voids 1 - Constitutional cachectic, chronically ill appearing - Routine HEENT Exam Head: Present: normocephalic, atraumatic Eye: Present: EOMI, PERRL, normal accommodation ENT: Present: mucous membranes moist - Routine Neck Exam Present: supple, full ROM. Absent: JVD, carotid bruit - Routine Respiratory Exam Present: accessory muscle use, rhonchi, crackles. Absent: stridor, wheezes - Routine Cardiovascular Exam Present: RRR, S1, S2 - Routine Abdominal Exam Present: soft, normoactive bowel sounds. Absent: tenderness, distended - Routine Extremities Exam Present: edema. Absent: cyanosis, clubbing - Routine Skin Exam Present: intact. Absent: cyanosis, erythema - Routine Neurological Exam Present: alert, oriented X3, moving all extremities Septic Shock Reassessment Septic shock perfusion: reassessment completed Caprini VTE Risk Assessment Caprini VTE Risk Assessment: Moderate/High Risk (score >= 2) Caprini Risk Assessment Model: Point Value = 1 Point Value = 2 Point Value = 3 Point Value = 5 Age 41-60 Minor surgery BMI > 25 kg/m2 Swollen legs Varicose veins or History of unexplained or recurrent spontaneous Oral contraceptives or hormone replacement Sepsis (< 1 month) Serious lung disease, including pneumonia (< 1 month) Abnormal pulmonary function Acute myocardial infarction Congestive heart failure (< 1 month) History of inflammatory bowel disease Medical patient at bed rest Age 61-74 Arthroscopic surgery Major open surgery (> 45 min) Laparoscopic surgery (> 45 min) Malignancy Confined to bed (> 72 hours) Immobilizing plaster cast Central venous access Age >= 75 History of VTE Family history of VTE Factor V Leiden Prothrombin [id number] Lupus anticoagulant Anticardiolipin antibodies Elevated serum homocysteine Heparin-induced thrombocytopenia Other congenital or acquired thrombophilia Stroke (< 1 month) Elective arthroplasty Hip, pelvis, or leg fracture Acute spinal cord injury (< 1 month) Prophylaxis Regimen: Total Risk Factor Score Risk Level Prophylaxis Regimen 0-1 Low Early ambulation 2 Moderate Order ONE of the following: *Sequential Compression Device (SCD) *Heparin 5000 units SQ BID 3-4 Higher Order ONE of the following medications: *Heparin 5000 units SQ TID *Enoxaparin/Lovenox 40 mg SQ daily (WT < 150 kg, CrCl > 30 mL/min) *Enoxaparin/Lovenox 30 mg SQ daily (WT < 150 kg, CrCl > 10-29 mL/min) *Enoxaparin/Lovenox 30 mg SQ BID (WT < 150 kg, CrCl > 30 mL/min) AND/OR *Sequential Compression Device (SCD) 5 or more Highest Order ONE of the following medications: *Heparin 5000 units SQ TID (Preferred with Epidurals) *Enoxaparin/Lovenox 40 mg SQ daily (WT < 150 kg, CrCl > 30 mL/min) *Enoxaparin/Lovenox 30 mg SQ daily (WT < 150 kg, CrCl > 10-29 mL/min) *Enoxaparin/Lovenox 30 mg SQ BID (WT < 150 kg, CrCl > 30 mL/min) AND *Sequential Compression Device (SCD) Assessment and Plan - Assessment and Plan Plan: Respiratory failure -Asymmetrical pulmonary edema versus infiltrates CT -CTA negative for PE -Rocephin and Zithromax empirically -Follow-up blood cultures -DuoNeb scheduled and as needed -BiPAP as needed Thyroid storm -Propranolol -Methimazole -Labetalol PRN -Hydrocortisone -Telemetry Hypertension -Continue home meds propranolol -Albuterol as needed Lower extremity edema -Doppler pending to rule out DVTs -Gentle diuresis -2D echo to evaluate for LV function Elevated troponin -No history of chest pain -No EKG changes suggestive of acute coronary syndrome -Monitor trend -2D echo pending DVT GI prophylaxis -Teds SCDs -Subcu heparin -Pepcid 35 minutes of critical care
[2018-09-04] MEDS ORDERED: Temazepam 15 MG Capsule PO PRN (21:00)
[2018-09-04] MEDS: Propranolol 40 MG Tablet PO SCH (21:42)
[2018-09-04] MEDS: Azithromycin Inj 500 MG in Sodium Chlor 0.9% Inj 250 ML IV.SIG SCH (22:58)
[2018-09-05] MEDS: Hydrocortisone Sod Succinate 100 MG Vial IV.PUSH SCH ×3 (00:15→13:58)
--- NOTE | 2018-09-05 00:17 | CT ---
EXAM DATE: 09/04/2018 11:52 PM EST AGE/SEX: 63 years / Female INDICATIONS: Shortness of breath. Abnormal chest x-ray with abnormal pulmonary opacities. CLINICAL DATA: This is the patient's initial encounter. Patient reports that signs and symptoms have been present for 1 day and indicates a pain score of 0/10. MEDICAL/SURGICAL HISTORY: None. None. RADIATION DOSE: 11.77 CTDI (mGy) COMPARISON: [facility], CTA PULMONARY W CONTRAST W 3D, 08/20/2018. . TECHNIQUE: Volumetric scanning was performed using a multi-row detector CT scanner during bolus infu chely of 70 ml Omnipaque 350 (iohexol) nonionic water-soluble contrast as a single exam dose. The divya a was post processed with a variety of visualization algorithms including full volume maximum intensi ty projection and sliding thin slab reformation. Using automated exposure control and adjustment of t he mA and/or kV according to patient size, radiation dose was kept as low as reasonably achievable to obtain optimal diagnostic quality images. DICOM format image data is available electronically for r eview and comparison. FINDINGS: Pulmonary Arteries: No filling defects are seen in the pulmonary arteries out to the subsegmental ve ssels. The left and right pulmonary arteries are normal in diameter. Lung: There are new areas of alveolar consolidation in the right upper lobe, right middle lobe and r ight lower lobe. There is new left perihilar infiltrate and left lower lobe infiltrate as well. Air b ronchograms are noted in the right lower lobe with dense consolidation. Effusion: A small right pleural effusion is again noted. Mediastinum: Moderate to severe cardiomegaly is again noted. Other: The axilla is unremarkable. The thyroid gland remains diffusely enlarged and inhomogeneous. CONCLUSION: 1. No evidence of pulmonary embolism. 2. Bilateral pulmonary infiltrates now noted right greater than left with dense consolidation in the right lower lobe. The differential diagnosis includes asymmetric congestive heart failure and pneumo alondra. 3. Small right pleural effusion again noted. 4. Moderate to severe cardiomegaly. Electronically signed by: Rusty Gallo MD 09/05/2018 12:16 AM EST
[2018-09-05] MEDS: Propranolol 40 MG Tablet PO SCH ×4 (02:53→21:14)
[2018-09-05] MEDS ORDERED: Chlorhexidine Gluconate 2% 1 Pack (2 Cloths) TOPICAL PRN (04:00)
[2018-09-05] MEDS ORDERED: Heparin Drip 25,000 UNIT/250 ML BAG IV.CONT PRN (04:28)
[2018-09-05] MEDS ORDERED: Heparin 10,000 UNITS/10 ML Vial (for IV use) IV.PUSH STA (04:28)
[2018-09-05 04:36] LABS: Baso % (Auto) 0.2 % (0.0-2.0); Hematocrit 41.2 % (35.0-46.0); Hemoglobin 13.8 gm/dL (11.6-15.3); Lymph # (Auto) 0.4 th/mm3 (1.0-4.8); Lymph % (Auto) 3.6 % (9.0-44.0); Mean Corpuscular HGB Conc 33.5 % (32.0-36.0); Mean Corpuscular Hemoglobin 28.9 pg (27.0-34.0); Mean Corpuscular Volume 86.3 fL (80.0-100.0); Mean Platelet Volume 11.1 fL (7.0-11.0); Mono # (Auto) 1.6 th/mm3 (0.0-0.9); Mono % (Auto) 15.1 % (0.0-8.0); Neut # (Auto) 8.6 th/mm3 (1.8-7.7); Neut % (Auto) 81.1 % (16.0-70.0); Platelet Count 193 th/mm3 (150-450); Red Blood Count 4.78 mil/mm3 (4.00-5.30); Red Cell Distribution Width 15.9 % (11.6-17.2); White Blood Count 10.6 th/mm3 (4.0-11.0)
[2018-09-05 04:53] LABS: Activated Partial Thrombo Time 27.1 sec (23.4-31.7); INR 1.1 Ratio; Prothrombin Time 11.2 sec (9.8-11.6)
[2018-09-05 05:19] LABS: Alanine Aminotransferase 35 U/L (10-53); Alkaline Phosphatase 84 U/L (45-117); Anion Gap 10 meq/L (5-15); Aspartate Aminotransferase 26 U/L (15-37); Blood Urea Nitrogen 24 mg/dL (7-18); Carbon Dioxide 31.5 meq/L (21.0-32.0); Chloride 101 meq/L (98-107); Glomerular Filtration Rate 64 mL/min (>89); Glucose,Random 108 mg/dL (74-106); Magnesium 1.5 mg/dL (1.5-2.5); Phosphorus 4.1 mg/dL (2.5-4.9); Potassium 3.9 meq/L (3.5-5.1); Sodium 142 meq/L (136-145); Total Protein 6.7 g/dL (6.4-8.2); Troponin I 0.43 ng/mL (0.02-0.05)
[2018-09-05] MEDS: Chlorhexidine Gluconate 2% 1 Pack (2 Cloths) TOPICAL SCH (05:32)
[2018-09-05 06:05] LABS: Activated Partial Thrombo Time 27.9 sec (23.4-31.7); INR 1.1 Ratio; Prothrombin Time 11.1 sec (9.8-11.6)
[2018-09-05] MEDS: Heparin - SQ 10,000 UNITS/ML Vial SQ SCH (09:45)
[2018-09-05] MEDS: Senna/Docusate Sodium 8.6/50 MG Tablet PO SCH (09:54)
--- NOTE | 2018-09-05 11:04 | US ---
EXAM DATE: 09/05/2018 10:58 AM EST AGE/SEX: 63 years / Female INDICATIONS: Edema. CLINICAL DATA: This is the patient's initial encounter. Patient reports that signs and symptoms have been present for 1 day and indicates a pain score of 0/10. MEDICAL/SURGICAL HISTORY: . Hypertension. Hypothyroidism. None. COMPARISON: [facility] [place], US VENOUS DOPPLER LEG BI, 08/20/2018. . TECHNIQUE: Venous ultrasound of both lower extremities was performed from the inguinal ligament to t he proximal calf. Real-time, color Doppler and spectral tracing, compression and augmentation techni ques were used. FINDINGS: Right Leg: Normal compression of the deep venous system from the inguinal region to the proximal gerry f. No echogenic clot is seen. Normal response of the venous system to augmentation and respiration. Left Leg: Normal compression of the deep venous system from the inguinal region to the proximal calf . No echogenic clot is seen. Normal response of the venous system to augmentation and respiration. Other: None. CONCLUSION: 1. The study is negative for bilateral lower extremity deep venous thrombosis. Electronically signed by: Keyshawn Max MD 09/05/2018 11:03 AM EST
--- NOTE | 2018-09-05 12:09 | P.PN ---
Subjective Interval history: Follow-up acute decompensated systolic CHF/hyperthyroidism September 05, 2018-patient seen and examined, reports some improvement of shortness of breath. Patient's states she was compliant with medical care after discharge. Currently denies any chest pain.No evidence of thyroid storm Physical Exam Vital signs: Vital Signs 09/04/18 15:35 09/04/18 15:45 09/04/18 15:49 Temperature Pulse Rate 92 H Respiratory Rate 24 Blood Pressure 220/136 H Pulse Oximetry 90 L 94 L 80 L 09/04/18 16:00 09/04/18 17:30 09/04/18 18:17 Temperature Pulse Rate 88 82 Respiratory Rate 16 22 Blood Pressure 216/114 H 212/114 H 203/114 H Pulse Oximetry 94 L 95 09/04/18 18:36 09/04/18 18:43 09/04/18 19:08 Temperature Pulse Rate 87 Respiratory Rate 28 H Blood Pressure 222/112 H 205/107 H Pulse Oximetry 96 09/04/18 19:40 09/04/18 20:05 09/04/18 20:30 Temperature Pulse Rate 87 78 Respiratory Rate 22 Blood Pressure 198/100 H Pulse Oximetry 100 100 09/04/18 20:35 09/04/18 20:45 09/04/18 21:00 Temperature 97.7 F Pulse Rate 87 81 81 Respiratory Rate 33 H 30 H 31 H Blood Pressure 205/104 H 175/86 H Pulse Oximetry 100 99 99 09/04/18 21:15 09/04/18 21:30 09/04/18 21:45 Temperature Pulse Rate 82 77 82 Respiratory Rate 30 H 25 H 20 Blood Pressure 178/91 H 173/90 H 182/103 H Pulse Oximetry 100 100 100 09/04/18 21:46 09/04/18 22:00 09/04/18 22:07 Temperature Pulse Rate 83 82 81 Respiratory Rate 28 H 30 H 25 H Blood Pressure 186/101 H 248/124 H 203/101 H Pulse Oximetry 100 100 100 09/04/18 22:15 09/04/18 22:30 09/04/18 22:45 Temperature Pulse Rate 74 76 75 Respiratory Rate 26 H 24 22 Blood Pressure 178/90 H 189/90 H 171/91 H Pulse Oximetry 100 100 100 09/04/18 23:00 09/04/18 23:27 09/04/18 23:30 Temperature Pulse Rate 72 81 80 Respiratory Rate 23 30 H 26 H Blood Pressure 157/80 H 180/91 H 154/81 H Pulse Oximetry 100 100 100 09/05/18 00:00 09/05/18 00:01 09/05/18 00:15 Temperature 98.1 F Pulse Rate 87 87 76 Respiratory Rate 30 H 36 H 22 Blood Pressure 181/95 H 165/80 H Pulse Oximetry 100 100 100 09/05/18 00:22 09/05/18 00:28 09/05/18 01:00 Temperature Pulse Rate 80 78 84 Respiratory Rate 29 H 33 H 32 H Blood Pressure 164/87 H Pulse Oximetry 100 100 09/05/18 01:06 09/05/18 01:36 09/05/18 02:00 Temperature Pulse Rate 85 84 78 Respiratory Rate 25 H 23 23 Blood Pressure 161/91 H 170/96 H Pulse Oximetry 100 100 100 09/05/18 02:06 09/05/18 02:24 09/05/18 02:36 Temperature Pulse Rate 87 92 H 85 Respiratory Rate 26 H 28 H 29 H Blood Pressure 178/102 H 173/113 H 173/95 H Pulse Oximetry 100 99 100 09/05/18 02:48 09/05/18 03:00 09/05/18 03:06 Temperature Pulse Rate 81 75 83 Respiratory Rate 24 20 27 H Blood Pressure 162/86 H 170/89 H Pulse Oximetry 100 100 100 09/05/18 03:36 09/05/18 04:00 09/05/18 04:06 Temperature Pulse Rate 77 83 79 Respiratory Rate 20 23 21 Blood Pressure 175/93 H 173/89 H Pulse Oximetry 100 100 100 09/05/18 04:21 09/05/18 04:36 09/05/18 05:00 Temperature Pulse Rate 85 80 75 Respiratory Rate 16 22 36 H Blood Pressure 163/80 H Pulse Oximetry 100 100 100 09/05/18 05:06 09/05/18 05:36 09/05/18 06:00 Temperature Pulse Rate 76 75 73 Respiratory Rate 19 18 18 Blood Pressure 148/78 H 144/76 H Pulse Oximetry 100 100 100 09/05/18 06:06 09/05/18 06:36 09/05/18 07:00 Temperature 98.7 F Pulse Rate 78 82 79 Respiratory Rate 24 21 28 H Blood Pressure 147/72 H 158/86 H 173/86 H Pulse Oximetry 100 100 100 09/05/18 07:06 09/05/18 08:00 09/05/18 08:26 Temperature 98.4 F Pulse Rate 88 82 83 Respiratory Rate 27 H 22 8 L Blood Pressure 173/86 H 146/80 H 146/80 H Pulse Oximetry 99 100 100 09/05/18 09:00 09/05/18 09:56 09/05/18 10:00 Temperature 98.7 F 98.1 F Pulse Rate 78 90 90 Respiratory Rate 22 24 25 H Blood Pressure Pulse Oximetry 100 100 99 09/05/18 11:00 Temperature 98.9 F Pulse Rate 87 Respiratory Rate 23 Blood Pressure Pulse Oximetry 100 Intake & Output 09/04/18 09/05/18 09/05/18 18:59 06:59 18:59 Intake Total 410 / 410 Output Total 300 / 300 Balance -300 / -300 410 / 410 Weight 47.627 kg 56 kg Intake: IV 350 / 350 Azithromycin Inj 500 MG In NS 250 / 250 Inj 250 ML @ 250 mls/hr IV.SIG Q24H VIVEK Rx#:[id number] Rocephin Inj 1,000 MG In NS Inj 100 / 100 100 ML @ 200 mls/hr IV.SIG Q24H VIVEK Rx#:[id number] Oral 60 / 60 Output: Urine 300 / 300 Other: # Voids 1 # Urine Diapers 3 Date of Last Bowel Movement 09/03/18 09/03/18 Narrative: GENERAL: NAD SKIN: Warm and dry. HEAD: Atraumatic. Normocephalic. EYES: Pupils equal and round. No scleral icterus. No injection or drainage. ENT: No nasal bleeding or discharge. Mucous membranes pink and moist. NECK: Trachea midline. No JVD. CARDIOVASCULAR: Regular rate and rhythm. RESPIRATORY: No accessory muscle use. Clear to auscultation. Breath sounds equal bilaterally. GASTROINTESTINAL: Abdomen soft, non-tender, nondistended. Hepatic and splenic margins not palpable. MUSCULOSKELETAL: Extremities without clubbing, cyanosis.+ edema BLE. No obvious deformities. NEUROLOGICAL: Awake and alert. No obvious cranial nerve deficits. Motor grossly within normal limits. Five out of 5 muscle strength in the arms and legs. Normal speech. PSYCHIATRIC: Appropriate mood and affect; insight and judgment normal. Results - Labs CBC & Chem 7: 09/05/18 03:13 09/05/18 03:13 Laboratory Results - last 24 hr 09/04/18 09/04/18 09/04/18 15:50 15:50 15:50 WBC 8.9 RBC 5.04 Hgb 14.6 Hct 44.9 MCV 89.2 MCH 29.0 MCHC 32.6 RDW 17.1 Plt Count 178 MPV 11.3 H Prelim Diff (Auto) Slide review pending Neut % (Auto) 66.8 Lymph % (Auto) 24.3 Bulloch % (Auto) 7.4 Eos % (Auto) 0.7 Baso % (Auto) 0.8 Neut # (Auto) 5.9 Lymph # (Auto) 2.2 Bulloch # (Auto) 0.7 Eos # (Auto) 0.1 Baso # (Auto) 0.1 WBC Differential Manual diff final Seg Neuts % (Manual) 73 H Lymphocytes % (Manual) 18 Monocytes % (Manual) 8 Basophils % (Manual) 1 Abs Neuts (Manual) 6.5 Differential Comment . Platelet Estimate Normal Platelet Morphology Enlarged H PT INR APTT Puncture Site Patient Temperature O2 Saturation ABG pH ABG pCO2 ABG pO2 ABG HCO3 ABG O2 Content ABG Base Excess ABG Methemoglobin Giovanni Test Hemoglobin Carboxyhemoglobin O2 Delivery Device Vent Setting Inspired O2 Critical Value Sodium 141 Potassium 4.3 Chloride 104 Carbon Dioxide 22.8 Anion Gap 14 BUN 22 H Creatinine 1.32 H Estimated GFR 49 L Random Glucose 211 H Calcium 8.6 Phosphorus Magnesium Total Bilirubin 1.5 H AST 35 ALT 42 Alkaline Phosphatase 98 Total Creatine Kinase 77 Troponin I 0.17 H B-Natriuretic Peptide 1932 H Total Protein 7.3 Albumin 3.2 L TSH Nasal Screen MRSA (PCR) 09/04/18 09/04/18 09/04/18 15:50 15:50 16:17 WBC RBC Hgb Hct MCV MCH MCHC RDW Plt Count MPV Prelim Diff (Auto) Neut % (Auto) Lymph % (Auto) Bulloch % (Auto) Eos % (Auto) Baso % (Auto) Neut # (Auto) Lymph # (Auto) Bulloch # (Auto) Eos # (Auto) Baso # (Auto) WBC Differential Seg Neuts % (Manual) Lymphocytes % (Manual) Monocytes % (Manual) Basophils % (Manual) Abs Neuts (Manual) Differential Comment Platelet Estimate Platelet Morphology PT INR APTT Cancelled Puncture Site Right radial Patient Temperature 98.6 O2 Saturation 89 L* ABG pH 7.32 L ABG pCO2 52 H* ABG pO2 64 ABG HCO3 26 ABG O2 Content 17.8 ABG Base Excess 0.7 ABG Methemoglobin 0.5 Igovanni Test Present Hemoglobin 14.2 Carboxyhemoglobin 1.3 O2 Delivery Device Bipap Vent Setting Ipap 12/epap 7/ps 5 Inspired O2 60 Critical Value Yes Sodium Potassium Chloride Carbon Dioxide Anion Gap BUN Creatinine Estimated GFR Random Glucose Calcium Phosphorus Magnesium Total Bilirubin AST ALT Alkaline Phosphatase Total Creatine Kinase Troponin I B-Natriuretic Peptide Total Protein Albumin TSH Less than 0.005 L Nasal Screen MRSA (PCR) 09/04/18 09/04/18 09/04/18 18:20 21:45 23:55 WBC RBC Hgb Hct MCV MCH MCHC RDW Plt Count MPV Prelim Diff (Auto) Neut % (Auto) Lymph % (Auto) Bulloch % (Auto) Eos % (Auto) Baso % (Auto) Neut # (Auto) Lymph # (Auto) Bulloch # (Auto) Eos # (Auto) Baso # (Auto) WBC Differential Seg Neuts % (Manual) Lymphocytes % (Manual) Monocytes % (Manual) Basophils % (Manual) Abs Neuts (Manual) Differential Comment Platelet Estimate Platelet Morphology PT 10.6 INR 1.0 APTT 24.3 Puncture Site Patient Temperature O2 Saturation ABG pH ABG pCO2 ABG pO2 ABG HCO3 ABG O2 Content ABG Base Excess ABG Methemoglobin Giovanni Test Hemoglobin Carboxyhemoglobin O2 Delivery Device Vent Setting Inspired O2 Critical Value Sodium Potassium Chloride Carbon Dioxide Anion Gap BUN Creatinine Estimated GFR Random Glucose Calcium Phosphorus Magnesium Total Bilirubin AST ALT Alkaline Phosphatase Total Creatine Kinase Troponin I 0.29 H D B-Natriuretic Peptide Total Protein Albumin TSH Nasal Screen MRSA (PCR) Not detected 09/05/18 09/05/18 09/05/18 03:13 03:13 03:13 WBC 10.6 RBC 4.78 Hgb 13.8 Hct 41.2 MCV 86.3 MCH 28.9 MCHC 33.5 RDW 15.9 Plt Count 193 MPV 11.1 H Prelim Diff (Auto) Neut % (Auto) 81.1 H Lymph % (Auto) 3.6 L Bulloch % (Auto) 15.1 H Eos % (Auto) 0.0 Baso % (Auto) 0.2 Neut # (Auto) 8.6 H Lymph # (Auto) 0.4 L Bulloch # (Auto) 1.6 H Eos # (Auto) 0.0 Baso # (Auto) 0.0 WBC Differential . Seg Neuts % (Manual) Lymphocytes % (Manual) Monocytes % (Manual) Basophils % (Manual) Abs Neuts (Manual) Differential Comment Auto diff final Platelet Estimate Platelet Morphology PT 11.2 INR 1.1 APTT 27.1 Puncture Site Patient Temperature O2 Saturation ABG pH ABG pCO2 ABG pO2 ABG HCO3 ABG O2 Content ABG Base Excess ABG Methemoglobin Giovanni Test Hemoglobin Carboxyhemoglobin O2 Delivery Device Vent Setting Inspired O2 Critical Value Sodium 142 Potassium 3.9 Chloride 101 Carbon Dioxide 31.5 Anion Gap 10 BUN 24 H Creatinine 1.05 H Estimated GFR 64 L Random Glucose 108 H D Calcium 8.0 L Phosphorus 4.1 Magnesium 1.5 Total Bilirubin 1.8 H AST 26 ALT 35 Alkaline Phosphatase 84 Total Creatine Kinase Troponin I 0.43 H D B-Natriuretic Peptide Total Protein 6.7 D Albumin 3.0 L TSH Nasal Screen MRSA (PCR) 09/05/18 05:00 WBC RBC Hgb Hct MCV MCH MCHC RDW Plt Count MPV Prelim Diff (Auto) Neut % (Auto) Lymph % (Auto) Bull[place] % (Auto) Eos % (Auto) Baso % (Auto) Neut # (Auto) Lymph # (Auto) Bulloch # (Auto) Eos # (Auto) Baso # (Auto) WBC Differential Seg Neuts % (Manual) Lymphocytes % (Manual) Monocytes % (Manual) Basophils % (Manual) Abs Neuts (Manual) Differential Comment Platelet Estimate Platelet Morphology PT 11.1 INR 1.1 APTT 27.9 Puncture Site Patient Temperature O2 Saturation ABG pH ABG pCO2 ABG pO2 ABG HCO3 ABG O2 Content ABG Base Excess ABG Methemoglobin Giovanni Test Hemoglobin Carboxyhemoglobin O2 Delivery Device Vent Setting Inspired O2 Critical Value Sodium Potassium Chloride Carbon Dioxide Anion Gap BUN Creatinine Estimated GFR Random Glucose Calcium Phosphorus Magnesium Total Bilirubin AST ALT Alkaline Phosphatase Total Creatine Kinase Troponin I B-Natriuretic Peptide Total Protein Albumin TSH Nasal Screen MRSA (PCR) - Imaging Impressions Chest CTA 09/04/18 00:00 CONCLUSION: 1. No evidence of pulmonary embolism. 2. Bilateral pulmonary infiltrates now noted right greater than left with dense consolidation in the right lower lobe. The differential diagnosis includes asymmetric congestive heart failure and pneumonia. 3. Small right pleural effusion again noted. 4. Moderate to severe cardiomegaly. Chest X-Ray 09/04/18 15:41 CONCLUSION: 1. Persistent bibasilar opacification, likely a combination of pleural fluid and airspace disease. 2. Increased hazy opacification of the mid and upper lung, particularly on the right. Venous Doppler Study 09/05/18 00:00 CONCLUSION: 1. The study is negative for bilateral lower extremity deep venous thrombosis. Assessment and Plan - Plan 63-year-old female with Acute compensated systolic heart Failure -CTA chest noted and review -Recent 2D echo with EF on last admission 20-25% -Currently on Lasix IV and monitor strict I&Os -Patient will benefit from MARII-I despite ARF -Awaiting for Cardiology consultation HCAP -CTA negative for PE -Continue Rocephin and Zithromax empirically monitor blood culture -DuoNeb scheduled and as needed -BiPAP as needed Hyperthyroidism -Admitted on 09/04/18 as thyroid storm; however this appears not to be the case -Patient recently discharged from the hospital after treatment for Thyroid storm 08/27/18; she was treated with PTU, Hydrocortisone, Lugol's iodine and Cholestyramine and Propranolol. Discharged home on MTU and Propranolol -Continue with MTU and Propranolol -d/c Hydrocortisone Hypertension -Continue home meds propranolol Lower extremity edema -Doppler on recent admission was negative for DVT -Doppler pending to rule out DVTs -Continue with Gentle diuresis -2D echo to evaluate for LV function Elevated troponin -No history of chest pain -No EKG changes suggestive of acute coronary syndrome -Elevated Troponin I likely 2/2 CHF -2D echo pending Noncompliance with medical care Importance of medical compliance with care was again stressed out to the patient PT consult to treat and eval DVT GI prophylaxis -Teds SCDs -Pepcid
--- NOTE | 2018-09-05 13:48 | ECHRPT ---
Indication: heart failure CONCLUSIONS Upper normal left ventricular size. Wall thickness is normal. The left ventricular systolic function is severely reduced with an estimated ejection fraction of 25 %. Global hypokinesis. Trace mitral valve regurgitation. Mild aortic valve regurgitation. Trileaflet aortic valve. There is trace tricuspid valve regurgitation. The estimated pulmonary arterial pressure is 39 mmHg. BP: / HR: Rhythm: MEASUREMENTS (Male / Female) Normal Values Technical Quality: 2D ECHO LV Diastolic Diameter PLAX 4.4 cm 4.2 - 5.9 / 3.9 - 5.3 cm LV Systolic Diameter PLAX 4.0 cm IVS Diastolic Thickness 1.0 cm 0.6 - 1.0 / 0.6 - 0.9 cm LVPW Diastolic Thickness 1.1 cm 0.6 - 1.0 / 0.6 - 0.9 cm LV Relative Wall Thickness 0.5 RV Internal Dim ED PLAX 2.6 cm LVOT Diameter 2.2 cm Aortic Root Diameter 2.5 cm LA Systolic Diameter LX 2.9 cm 3.0 - 4.0 / 2.7 - 3.8 cm LV Ejection Fraction MOD 4C 31.3 % LV Ejection Fraction 4C AL 31.0 % LV Ejection Fraction MOD 2C 31.5 % LV Ejection Fraction 2C AL 29.6 % M-MODE Aortic Root Diameter MM 3.3 cm LA Systolic Diameter MM 3.0 cm LA Ao Ratio MM 0.9 AV Cusp Separation MM 2.0 cm DOPPLER AV Peak Velocity 135.0 cm/s AV Peak Gradient 7.3 mmHg AI Peak Velocity 458.0 cm/s AI Peak Gradient 83.9 mmHg AI Pressure Half Time 648.0 ms Mitral E Point Velocity 61.2 cm/s Mitral A Point Velocity 59.7 cm/s Mitral E to A Ratio 1.0 LV E' Lateral Velocity 5.1 cm/s Mitral E to LV E' Lateral Ratio 12.1 LV E' Septal Velocity 5.8 cm/s Mitral E to LV E' Septal Ratio 10.6 TR Peak Velocity 271.0 cm/s TR Peak Gradient 29.4 mmHg Right Atrial Pressure 10.0 mmHg Pulmonary Artery Systolic Pressu 39.4 mmHg Right Ventricular Systolic Press 39.4 mmHg PV Peak Velocity 96.5 cm/s PV Peak Gradient 3.7 mmHg FINDINGS LEFT VENTRICLE Upper normal left ventricular size. Wall thickness is normal. The left ventricular systolic function is severely reduced with an estimated ejection fraction of 25 %. Global hypokinesis. RIGHT VENTRICLE Normal right ventricular size and systolic function. LEFT ATRIUM The left atrial size is normal. RIGHT ATRIUM The right atrial size is normal. ATRIAL SEPTUM Normal atrial septal thickness without atrial level shunting by limited color doppler interrogation. AORTA The aortic root and proximal ascending aorta are normal in size on limited imaging. MITRAL VALVE Trace mitral valve regurgitation. AORTIC VALVE Mild aortic valve regurgitation. Trileaflet aortic valve. TRICUSPID VALVE There is trace tricuspid valve regurgitation. The estimated pulmonary arterial pressure is 39 mmHg. PULMONARY VALVE No pulmonary valve regurgitation or stenosis. VESSELS The inferior vena cava is normal in size. PERICARDIUM No pericardial effusion. Willis Dunn MD (Electronically Signed) Final Date:05 September 2018 13:48
--- NOTE | 2018-09-05 13:55 | MB ---
cc: Willis Dunn MD DATE: 09/05/2018 REASON FOR CONSULTATION: Congestive heart failure. HISTORY OF PRESENT ILLNESS: The patient is a 63-year-old [place] female with a history of severe cardiomyopathy, ejection fraction 20% to 25% by echo, 08/20/2018; history of hypertension, hyperthyroidism, who was admitted to the hospital with increased shortness of breath. The patient was recently admitted to [facility] due to shortness of breath and thyrotoxicosis. The patient returned due to increasing shortness of breath over the past 24 hours. Since coming in the hospital, her dyspnea has considerably improved. The patient denies chest pain, dizziness, syncope, or near syncope, palpitations. Recently, the patient also notes mild pedal edema, which has since resolved. She reports compliance with her medications and no-added salt diet. PAST MEDICAL HISTORY: 1. Severe, reportedly nondilated cardiomyopathy with ejection fraction of 20% to 25% by echo, 08/20/2018. 2. Hypertension. 3. Hyperthyroidism. CARDIAC MEDICATIONS AT HOME: Propranolol 40 mg q. 6 hours. ALLERGIES: NO KNOWN DRUG ALLERGIES. FAMILY HISTORY: There is no significant family history of early myocardial infarction. SOCIAL HISTORY: The patient denies any history of alcohol or tobacco abuse. REVIEW OF SYSTEMS: As in the history of present illness, otherwise negative or noncontributory. She also denies headache, abdominal pain, melena, dyspepsia, bright red blood per rectum, fevers, chills. PHYSICAL EXAMINATION: VITAL SIGNS: Her blood pressure 146/80 with a pulse of 89, respirations 18. GENERAL: She is a well-developed, thin [place] female in no acute distress. NECK: Jugular venous pressure is normal. Carotid pulses are 2+ bilaterally and without bruits. CHEST: Reveals few scattered minimal rhonchi. CARDIAC: She has a regular rhythm and rate without S3, S4, or murmur. ABDOMEN: She has a soft, nontender abdomen. Bowel sounds are present. There is no definite hepatosplenomegaly. EXTREMITIES: Reveals no clubbing, cyanosis or edema. DIAGNOSTIC DATA: EKG from 09/04/2018 shows sinus rhythm, left atrial abnormality. Chest x-ray shows bibasilar opacification, in part due to pleural fluid, hazy opacification of the mid and upper lung lao, right greater than left. Laboratory data includes WBC 10.6, hemoglobin 13.8, platelets 193. INR 1.1. Potassium 3.9, BUN 24, creatinine 1.05. Troponin 0.43. CK 77. IMPRESSION: Congestive heart failure, minimal troponin elevation in this 63-year-old [place] female with a history of thyrotoxicosis, hypertension, severe cardiomyopathy with ejection fraction of 20% to 25% by recent echo. Since coming into the hospital, she has symptomatically improved with intravenous Lasix diuresis. So far, there has been no evidence for atrial fibrillation. I doubt the slight elevation in troponin is due to acute coronary syndrome. No acute EKG changes are seen. She has had no definite chest pains. The slight elevation in troponin may be due to congestive heart failure. RECOMMENDATIONS: 1. Continue propranolol. 2. Continue therapy for her hyperthyroidism. I suspect with improvement in her thyroid status, she will have progressively improving left ventricular function. 3. Consider the addition of an MARII inhibitor. 4. Daily aspirin. 5. Continue intravenous Lasix diuresis. MD DANTE Ibrahim/alka , 01:22 PM , 01:32 PM [email or web address]
--- NOTE | 2018-09-05 14:21 | ECG ---
Date Performed: 09/04/2018 Time Performed: 15:51:48 PTAGE: 63 years EKG: Sinus rhythm LEFT ATRIAL ENLARGEMENT Biphasic anterior T waves Compared to previous tracing this does appear cond ucive with evolving anterior PR Clinical correlation is recommended ABNORMAL ECG PREVIOUS TRACING : 08/21/2018 13.03 DOCTOR: Megha Anderson Interpretating Date/Time 09/05/2018 14:20:59
[2018-09-05] MEDS: Azithromycin Inj 500 MG in Sodium Chlor 0.9% Inj 250 ML IV.SIG SCH (23:21)
[2018-09-06] MEDS: Propranolol 40 MG Tablet PO SCH ×2 (02:32→09:25)
[2018-09-06] MEDS: Chlorhexidine Gluconate 2% 1 Pack (2 Cloths) TOPICAL SCH (04:21)
[2018-09-06 06:06] LABS: Hematocrit 35.3 % (35.0-46.0); Mean Corpuscular HGB Conc 34.1 % (32.0-36.0); Mean Corpuscular Hemoglobin 28.9 pg (27.0-34.0); Mean Corpuscular Volume 84.7 fL (80.0-100.0); Mean Platelet Volume 11.1 fL (7.0-11.0); Platelet Count 185 th/mm3 (150-450); Red Blood Count 4.17 mil/mm3 (4.00-5.30); Red Cell Distribution Width 15.7 % (11.6-17.2); White Blood Count 8.1 th/mm3 (4.0-11.0)
[2018-09-06 06:23] LABS: Albumin 2.6 g/dL (3.4-5.0); Anion Gap 10 meq/L (5-15); Aspartate Aminotransferase 22 U/L (15-37); Blood Urea Nitrogen 29 mg/dL (7-18); Calcium 7.6 mg/dL (8.5-10.1); Carbon Dioxide 33.3 meq/L (21.0-32.0); Chloride 101 meq/L (98-107); Glomerular Filtration Rate 53 mL/min (>89); Glucose,Random 98 mg/dL (74-106); Potassium 3.2 meq/L (3.5-5.1); Sodium 144 meq/L (136-145)
[2018-09-06 06:25] LABS: Alanine Aminotransferase 27 U/L (10-53)
[2018-09-06 06:27] LABS: Alkaline Phosphatase 63 U/L (45-117); Total Protein 5.8 g/dL (6.4-8.2)
[2018-09-06 06:36] VITALS: PULSE 75
[2018-09-06 06:45] VITALS: RESP 20
[2018-09-06 08:08] VITALS: O2SAT 97
--- NOTE | 2018-09-06 08:39 | P.PNCA ---
Subjective Interval history: Feels much better. Dyspnea resolved. No CP, dizziness, palpitations, PND. Medications and Allergies Active Medications: Active Medications Acetaminophen (Tylenol) 650 mg PO Q6H PRN PRN Reason: PAIN 1-10 AND/OR FEVER >101F Al Hydroxide/Mg Hydroxide (Milk Of [place]) 30 ml PO Q12H PRN PRN Reason: Mild Constipation Albuterol (Duoneb Neb (Prn)) 1 ampul NEB Q2HR NEB PRN PRN Reason: WHEEZING Albuterol (Duoneb Neb (Jenny)) 1 ampul NEB Q4HR NEB [facility] Last Admin: 09/06/18 08:05 Dose: 1 ampul Aspirin (Ecotrin) 81 mg PO DAILY JENNY Bisacodyl (Dulcolax Supp) 10 mg RECTAL DAILY PRN PRN Reason: SEVERE CONSITIPATION Chlorhexidine Gluconate (Chlorhexidine 2% Cloth) 3 pack TOPICAL DAILY@0400 PRN PRN Reason: Extra cloth needed Stop: 09/10/18 03:59 Chlorhexidine Gluconate (Chlorhexidine 2% Cloth) 3 pack TOPICAL DAILY@0400 [facility] Stop: 09/10/18 03:59 Last Admin: 09/06/18 04:21 Dose: Not Given Enalapril Maleate (Vasotec) 10 mg PO BID [facility] Last Admin: 09/05/18 21:14 Dose: 10 mg Azithromycin 500 mg/ Sodium (Chloride) 250 mls @ 250 mls/hr IV.SIG Q24H [facility] Last Infusion: 09/06/18 00:30 Dose: Infused Ceftriaxone Sodium 1,000 mg/ (Sodium Chloride) 100 mls @ 200 mls/hr IV.SIG Q24H [facility] Last Infusion: 09/05/18 21:46 Dose: Infused Labetalol HCl (Trandate Inj) 10 mg IV.PUSH Q4H PRN PRN Reason: SBP>160, DBP>90 Last Admin: 09/04/18 20:43 Dose: 10 mg Methimazole (Tapazole) 10 mg PO DAILY [facility] Last Admin: 09/05/18 09:54 Dose: 10 mg Ondansetron HCl (Zofran Inj) 4 mg IV.PUSH Q6H PRN PRN Reason: NAUSEA OR VOMITING Propranolol HCl (Inderal) 40 mg PO Q6H [facility] Last Admin: 09/06/18 02:32 Dose: 40 mg Sodium Chloride (Ns Flush) 2 ml IV.FLUSH BID JENNY Last Admin: 09/05/18 21:15 Dose: 2 ml Sodium Chloride (Ns Flush) 2 ml IV.FLUSH PRN PRN PRN Reason: FLUSH AFTER USING IV ACCESS Temazepam (Restoril) 15 mg PO HS PRN PRN Reason: INSOMNIA Allergies Allergy/AdvReac Type Severity Reaction Status Date / Time No Known Allergies Allergy Verified 09/04/18 15:48 Physical Exam Vital signs: Vital Signs 09/05/18 09:00 09/05/18 09:56 09/05/18 10:00 Temperature 98.7 F 98.1 F Pulse Rate 78 90 90 Respiratory Rate 22 24 25 H Blood Pressure Pulse Oximetry 100 100 99 09/05/18 11:00 09/05/18 11:18 09/05/18 12:00 Temperature 98.9 F Pulse Rate 87 82 84 Respiratory Rate 23 19 23 Blood Pressure 129/66 Pulse Oximetry 100 100 97 09/05/18 12:38 09/05/18 13:00 09/05/18 14:00 Temperature 98.4 F Pulse Rate 89 86 94 H Respiratory Rate 20 25 H 22 Blood Pressure 127/92 H Pulse Oximetry 98 98 09/05/18 15:00 09/05/18 16:00 09/05/18 16:29 Temperature 97.5 F L Pulse Rate 93 H 90 90 Respiratory Rate 21 16 Blood Pressure 153/91 H Pulse Oximetry 98 95 09/05/18 20:00 09/05/18 20:37 09/05/18 23:25 Temperature 97.8 F Pulse Rate 90 93 H 85 Respiratory Rate 20 17 17 Blood Pressure 152/72 H Pulse Oximetry 96 09/06/18 00:00 09/06/18 02:58 09/06/18 04:00 Temperature 98.4 F 98.1 F Pulse Rate 81 88 75 Respiratory Rate 18 16 20 Blood Pressure 151/85 H 137/74 Pulse Oximetry 97 98 09/06/18 08:07 09/06/18 08:08 Temperature Pulse Rate 75 Respiratory Rate 20 Blood Pressure Pulse Oximetry 97 Intake & Output 09/05/18 09/06/18 09/06/18 18:59 06:59 18:59 Intake Total 760 / 760 788 / 788 Balance 760 / 760 788 / 788 Weight 53 kg Intake: IV 428 / 428 Heparin/D5W 25,000 U/250 mL 25, 78 / 78 000 unit In 250 ml @ Per Protocol IV.CONT TITRATE PRN Rx #:[id number] Azithromycin Inj 500 MG In NS 250 / 250 Inj 250 ML @ 250 mls/hr IV.SIG Q24H JENNY Rx#:[id number] Rocephin Inj 1,000 MG In NS Inj 100 / 100 100 ML @ 200 mls/hr IV.SIG Q24H JENNY Rx#:[id number] Oral 760 / 760 360 / 360 Other: # Voids 2 3 # Incontinent Voids 2 Date of Last Bowel Movement 09/05/18 09/05/18 # Bowel Movements 2 1 - Constitutional no acute distress - Routine Neck Exam Absent: JVD - Routine Respiratory Exam Comments: Minimal bibasilar crackles. - Routine Cardiovascular Exam Present: RRR, S1, S2. Absent: murmur, gallop - Routine Abdominal Exam Present: soft, normoactive bowel sounds. Absent: tenderness, organomegaly - Routine Extremities Exam Absent: cyanosis, clubbing, edema Results 09/06/18 04:01 09/06/18 04:01 Cardiac Enzymes 09/04/18 09/04/18 09/04/18 Range/Units 15:50 15:50 23:55 AST 35 (15-37) U/L Troponin I 0.17 H 0.29 H D (0.02-0.05) ng/mL B-Natriuretic Peptide 1932 H (0-100) pg/mL 09/05/18 09/06/18 Range/Units 03:13 04:01 AST 26 22 (15-37) U/L Troponin I 0.43 H D (0.02-0.05) ng/mL B-Natriuretic Peptide (0-100) pg/mL Coagulation 09/04/18 09/04/18 09/04/18 Range/Units 15:50 15:50 18:20 PT 10.6 (9.8-11.6) sec APTT Cancelled 24.3 B-Natriuretic Peptide 1932 H (0-100) pg/mL 09/05/18 09/05/18 09/05/18 Range/Units 03:13 05:00 11:29 PT 11.2 11.1 (9.8-11.6) sec APTT 27.1 27.9 70.2 H D B-Natriuretic Peptide (0-100) pg/mL 09/05/18 Range/Units 18:15 PT (9.8-11.6) sec APTT 36.5 H D B-Natriuretic Peptide (0-100) pg/mL CBC 09/04/18 09/05/18 09/06/18 Range/Units 15:50 03:13 04:01 WBC 8.9 10.6 8.1 (4.0-11.0) th/mm3 RBC 5.04 4.78 4.17 (4.00-5.30) mil/mm3 Hgb 14.6 13.8 12.0 (11.6-15.3) gm/dL Hct 44.9 41.2 35.3 (35.0-46.0) % Plt Count 178 193 185 (150-450) th/mm3 Neut # (Auto) 5.9 8.6 H (1.8-7.7) th/mm3 Lymph # (Auto) 2.2 0.4 L (1.0-4.8) th/mm3 [place] # (Auto) 0.7 1.6 H (0.0-0.9) th/mm3 Eos # (Auto) 0.1 0.0 (0.0-0.4) th/mm3 Baso # (Auto) 0.1 0.0 (0.0-0.2) th/mm3 Comprehensive Metabolic Panel 09/04/18 09/05/18 09/06/18 Range/Units 15:50 03:13 04:01 Sodium 141 142 144 (136-145) meq/L Potassium 4.3 3.9 3.2 L (3.5-5.1) meq/L Chloride 104 101 101 (98-107) meq/L Carbon Dioxide 22.8 31.5 33.3 H (21.0-32.0) meq/L BUN 22 H 24 H 29 H (7-18) mg/dL Creatinine 1.32 H 1.05 H 1.24 H (0.50-1.00) mg/dL Calcium 8.6 8.0 L 7.6 L (8.5-10.1) mg/dL AST 35 26 22 (15-37) U/L ALT 42 35 27 (10-53) U/L Alkaline Phosphatase 98 84 63 (45-117) U/L Total Protein 7.3 6.7 D 5.8 L D (6.4-8.2) g/dL Albumin 3.2 L 3.0 L 2.6 L (3.4-5.0) g/dL Intake and Output 09/05/18 09/06/18 09/06/18 22:59 06:59 14:59 Intake Total 938 / 938 610 / 610 Balance 938 / 938 610 / 610 Intake: IV 178 / 178 250 / 250 Heparin/D5W 25,000 U/250 mL 25, 78 / 78 000 unit In 250 ml @ Per Protocol IV.CONT TITRATE PRN Rx #:[id number] Azithromycin Inj 500 MG In NS 250 / 250 Inj 250 ML @ 250 mls/hr IV.SIG Q24H JENNY Rx#:[id number] Rocephin Inj 1,000 MG In NS Inj 100 / 100 100 ML @ 200 mls/hr IV.SIG Q24H JENNY Rx#:[id number] Oral 760 / 760 360 / 360 Other: # Voids 2 3 # Incontinent Voids 2 Date of Last Bowel Movement 09/05/18 09/05/18 # Bowel Movements 2 1 Weight 53 kg - Imaging and Cardiology Imaging: Impressions Chest CTA 09/04/18 00:00 CONCLUSION: 1. No evidence of pulmonary embolism. 2. Bilateral pulmonary infiltrates now noted right greater than left with dense consolidation in the right lower lobe. The differential diagnosis includes asymmetric congestive heart failure and pneumonia. 3. Small right pleural effusion again noted. 4. Moderate to severe cardiomegaly. Chest X-Ray 09/04/18 15:41 CONCLUSION: 1. Persistent bibasilar opacification, likely a combination of pleural fluid and airspace disease. 2. Increased hazy opacification of the mid and upper lung, particularly on the right. Venous Doppler Study 09/05/18 00:00 CONCLUSION: 1. The study is negative for bilateral lower extremity deep venous thrombosis. Assessment and Plan - Assessment (1) Congestive heart failure Code(s): I50.9 - Heart failure, unspecified Status: Acute Plan: Clinically much improved with diuresis. Suspect her left ventricular function will progressively improve with stabilization of her thyroid status. Recommend continue beta manuel, MARII-I. Keep on a maintenance dose of furosemide 20 mg qd. OK to discharge from cardiac standpoint. (2) Hypertension Code(s): I10 - Essential (primary) hypertension Status: Chronic Plan: Fluctuating BP's, normotensive early this morning. Recommend outpatient monitoring and medication adjustments. (3) Elevated troponin Code(s): R74.8 - Abnormal levels of other serum enzymes Status: Acute Plan: Stable. Doubt due to ACS. No other evidence for acute myocardial ischemia. More likely due to CHF. - Plan Code Status: full code Discussed Condition With: patient (1) Congestive heart failure Qualifiers: Heart failure type: systolic (2) Hypertension Qualifiers: Hypertension type: essential hypertension Qualified Code(s): I10 - Essential (primary) hypertension
[2018-09-06 08:55] LABS: Lymphocytes 12 % (9-44); Monocytes 10 % (0-8)
[2018-09-06 08:56] LABS: Ovalocytes 1+; Platelet Estimate Normal (Normal)
[2018-09-06] MEDS ORDERED: Potassium Chloride 10 MEQ ER Capsule PO SCH (09:00)
[2018-09-06] MEDS ORDERED: Furosemide 20 MG Tablet PO SCH (09:00)
[2018-09-06 10:10] VITALS: BP 152/74; TEMP 98.3
--- NOTE | 2018-09-06 10:39 | P.PNIM ---
Subjective Interval history: Patient says she is feeling well. Denies any chest pain or shortness of breath. Says she would like to go home. Physical Exam Vital signs: Vital Signs 09/05/18 11:00 09/05/18 11:18 09/05/18 12:00 Temperature 98.9 F Pulse Rate 87 82 84 Respiratory Rate 23 19 23 Blood Pressure 129/66 Pulse Oximetry 100 100 97 09/05/18 12:38 09/05/18 13:00 09/05/18 14:00 Temperature 98.4 F Pulse Rate 89 86 94 H Respiratory Rate 20 25 H 22 Blood Pressure 127/92 H Pulse Oximetry 98 98 09/05/18 15:00 09/05/18 16:00 09/05/18 16:29 Temperature 97.5 F L Pulse Rate 93 H 90 90 Respiratory Rate 21 16 Blood Pressure 153/91 H Pulse Oximetry 98 95 09/05/18 20:00 09/05/18 20:37 09/05/18 23:25 Temperature 97.8 F Pulse Rate 90 93 H 85 Respiratory Rate 20 17 17 Blood Pressure 152/72 H Pulse Oximetry 96 09/06/18 00:00 09/06/18 02:58 09/06/18 04:00 Temperature 98.4 F 98.1 F Pulse Rate 81 88 75 Respiratory Rate 18 16 20 Blood Pressure 151/85 H 137/74 Pulse Oximetry 97 98 09/06/18 08:00 09/06/18 08:07 09/06/18 08:08 Temperature 98.3 F Pulse Rate 74 75 Respiratory Rate 19 20 Blood Pressure 152/74 H Pulse Oximetry 95 97 Intake & Output 09/05/18 09/06/18 09/06/18 18:59 06:59 18:59 Intake Total 760 / 760 788 / 788 Balance 760 / 760 788 / 788 Weight 53 kg Intake: IV 428 / 428 Heparin/D5W 25,000 U/250 mL 25, 78 / 78 000 unit In 250 ml @ Per Protocol IV.CONT TITRATE PRN Rx #:[id number] Azithromycin Inj 500 MG In NS 250 / 250 Inj 250 ML @ 250 mls/hr IV.SIG Q24H VIVEK Rx#:[id number] Rocephin Inj 1,000 MG In NS Inj 100 / 100 100 ML @ 200 mls/hr IV.SIG Q24H [facility] Rx#:[id number] Oral 760 / 760 360 / 360 Other: # Voids 2 3 # Incontinent Voids 2 Date of Last Bowel Movement 09/05/18 09/05/18 # Bowel Movements 2 1 Narrative: GENERAL: NAD. Alert and oriented x3. SKIN: Warm and dry. HEAD: Atraumatic. Normocephalic. EYES: Pupils equal and round. No scleral icterus. No injection or drainage. ENT: No nasal bleeding or discharge. Mucous membranes pink and moist. NECK: Trachea midline. No JVD. CARDIOVASCULAR: Regular rate and rhythm. RESPIRATORY: No accessory muscle use. Patient does have some mild crackles in the bases. Breathing comfortably. GASTROINTESTINAL: Abdomen soft, non-tender, nondistended. Hepatic and splenic margins not palpable. MUSCULOSKELETAL: Extremities without clubbing, cyanosis.+1 edema BLE. No obvious deformities. NEUROLOGICAL: Awake and alert. No obvious cranial nerve deficits. Motor grossly within normal limits. Five out of 5 muscle strength in the arms and legs. Normal speech. PSYCHIATRIC: Appropriate mood and affect; insight and judgment normal. Results - Labs CBC & Chem 7: 09/06/18 04:01 09/06/18 04:01 Laboratory Results - last 24 hr 09/05/18 09/05/18 09/06/18 11:29 18:15 04:01 WBC 8.1 RBC 4.17 Hgb 12.0 Hct 35.3 MCV 84.7 MCH 28.9 MCHC 34.1 RDW 15.7 Plt Count 185 MPV 11.1 H Prelim Diff (Auto) Manual diff required WBC Differential Manual diff final Seg Neuts % (Manual) 75 H Band Neuts % (Manual) 3 Lymphocytes % (Manual) 12 Monocytes % (Manual) 10 H Abs Neuts (Manual) 6.3 Differential Comment . Platelet Estimate Normal Platelet Morphology Enlarged H Ovalocytes 1+ H Keratocytes Occ H APTT 70.2 H D 36.5 H D Sodium Potassium Chloride Carbon Dioxide Anion Gap BUN Creatinine Estimated GFR Random Glucose Calcium Total Bilirubin AST ALT Alkaline Phosphatase Total Protein Albumin 09/06/18 04:01 WBC RBC Hgb Hct MCV MCH MCHC RDW Plt Count MPV Prelim Diff (Auto) WBC Differential Seg Neuts % (Manual) Band Neuts % (Manual) Lymphocytes % (Manual) Monocytes % (Manual) Abs Neuts (Manual) Differential Comment Platelet Estimate Platelet Morphology Ovalocytes Keratocytes APTT Sodium 144 Potassium 3.2 L Chloride 101 Carbon Dioxide 33.3 H Anion Gap 10 BUN 29 H Creatinine 1.24 H Estimated GFR 53 L Random Glucose 98 Calcium 7.6 L Total Bilirubin 1.1 H AST 22 ALT 27 Alkaline Phosphatase 63 Total Protein 5.8 L D Albumin 2.6 L - Imaging Impressions Venous Doppler Study 09/05/18 00:00 CONCLUSION: 1. The study is negative for bilateral lower extremity deep venous thrombosis. Assessment and Plan - Plan 63-year-old female with Acute compensated systolic heart Failure -CTA chest noted and review -Recent 2D echo with EF on last admission 20-25% -Currently on Lasix IV and monitor strict I&Os -Patient will benefit from MARII-I despite ARF -Awaiting for Cardiology consultation = Patient cleared by cardiology for discharge. Start on a regimen of Lasix, enalapril, aspirin. Stressed compliance. Expect ejection fraction to improve with improvement in hyperthyroid state. follow-up with cardiology as outpatient. HCAP -CTA negative for PE -Continue Rocephin and Zithromax empirically monitor blood culture -DuoNeb scheduled and as needed -BiPAP as needed Hyperthyroidism -Admitted on 09/04/18 as thyroid storm; however this appears not to be the case -Patient recently discharged from the hospital after treatment for Thyroid storm 08/27/18; she was treated with PTU, Hydrocortisone, Lugol's iodine and Cholestyramine and Propranolol. Discharged home on MTU and Propranolol -Continue with MTU and Propranolol -d/c Hydrocortisone = 09/06. Will increase patient's methimazole to 10 mg p.o. 3 times daily. Patient is to follow with primary care as outpatient. Hypertension -Continue home meds propranolol = Enalapril added. Lower extremity edema -Doppler on recent admission was negative for DVT -Doppler pending to rule out DVTs -Continue with Gentle diuresis -2D echo to evaluate for LV function Elevated troponin -No history of chest pain -No EKG changes suggestive of acute coronary syndrome -Elevated Troponin I likely 2/2 CHF -2D echo pending -EF depressed in the 20s as before, elevated pulmonary pressures. = Patient cleared by cardiology for discharge. Noncompliance with medical care Importance of medical compliance with care was again stressed out to the patient PT consult to treat and eval DVT GI prophylaxis -Teds SCDs -Pepcid Discussed Condition With: Patient, nurse.
--- NOTE | 2018-09-06 10:49 | P.DS ---
Date of admission: 09/04/18 18:42 Primary care physician: UNKNOWN Brief History from admission: 64-year-old female with a history of hyperthyroidism, CHF, recent respiratory failure, presents today with complaints of severe shortness of breath. Patient was seen in triage and noted to have an O2 sat of 72% . The patient denies any chest pain, chest pressure. She reports that the shortness of breath became progressively worse over the last 24 hours. The patient also reports lower extremity edema. She is taking her methimazole, propranolol for her hyperthyroidism. In the emergency department her TSH was found to be less than 0.005 and the patient has been admitted to ICU with a diagnosis of hyperthyroid storm. DS: Medications - Discharge Medications Prescriptions: aspirin 81 mg PO DAILY 30 Days #30 tab enalapril maleate 10 mg PO BID 30 Days #60 tab furosemide 20 mg PO DAILY 30 Days #30 tab methimazole 10 mg PO TID #30 tab potassium chloride 10 meq PO DAILY 30 Days #30 cap DS: Summary Hospital Course: Patient admitted with CHF exacerbation. BNP found to be 1932 on admission, chest x-ray with bilateral pulmonary edema, right lower lobe consolidation. Patient was treated with antibiotics, aggressive diuresis with improvement. Ejection fraction still 20-25% with elevated pulmonary pressures. See please see report. Patient will be discharged on regimen to include Lasix, potassium, enalapril, aspirin. Levofloxacin will be continued to complete treatment course for right lower lobe pneumonia. She will need to follow-up with cardiology, primary care as outpatient. Have also instituted daily weights. Patient conveys understanding For problem based summary from most recent progress note, please see below. 63-year-old female with Acute compensated systolic heart Failure -CTA chest noted and review -Recent 2D echo with EF on last admission 20-25% -Currently on Lasix IV and monitor strict I&Os -Patient will benefit from MARII-I despite ARF -Awaiting for Cardiology consultation = Patient cleared by cardiology for discharge. Start on a regimen of Lasix, enalapril, aspirin. Stressed compliance. Expect ejection fraction to improve with improvement in hyperthyroid state. follow-up with cardiology as outpatient. HCAP -CTA negative for PE -Continue Rocephin and Zithromax empirically monitor blood culture -DuoNeb scheduled and as needed -BiPAP as needed Hyperthyroidism -Admitted on 09/04/18 as thyroid storm; however this appears not to be the case -Patient recently discharged from the hospital after treatment for Thyroid storm 08/27/18; she was treated with PTU, Hydrocortisone, Lugol's iodine and Cholestyramine and Propranolol. Discharged home on MTU and Propranolol -Continue with MTU and Propranolol -d/c Hydrocortisone = 09/06. Will increase patient's methimazole to 10 mg p.o. 3 times daily. Patient is to follow with primary care as outpatient. Hypertension -Continue home meds propranolol = Enalapril added. Lower extremity edema -Doppler on recent admission was negative for DVT -Doppler pending to rule out DVTs -Continue with Gentle diuresis -2D echo to evaluate for LV function Elevated troponin -No history of chest pain -No EKG changes suggestive of acute coronary syndrome -Elevated Troponin I likely 2/2 CHF -2D echo pending -EF depressed in the 20s as before, elevated pulmonary pressures. = Patient cleared by cardiology for discharge. Noncompliance with medical care Importance of medical compliance with care was again stressed out to the patient PT consult to treat and eval DVT GI prophylaxis -Teds SCDs -Pepcid Discussed Condition With: Patient, nurse. - Time Spent with Patient Total time spent providing and/or coordinating discharge services: Greater than 30 minutes - Quality: VTE Deep Vein Thrombosis/Pulmonary Embolism Present on Admission: No Exam Vital signs: Vital Signs 09/05/18 11:00 09/05/18 11:18 09/05/18 12:00 Temperature 98.9 F Pulse Rate 87 82 84 Respiratory Rate 23 19 23 Blood Pressure 129/66 Pulse Oximetry 100 100 97 09/05/18 12:38 09/05/18 13:00 09/05/18 14:00 Temperature 98.4 F Pulse Rate 89 86 94 H Respiratory Rate 20 25 H 22 Blood Pressure 127/92 H Pulse Oximetry 98 98 09/05/18 15:00 09/05/18 16:00 09/05/18 16:29 Temperature 97.5 F L Pulse Rate 93 H 90 90 Respiratory Rate 21 16 Blood Pressure 153/91 H Pulse Oximetry 98 95 09/05/18 20:00 09/05/18 20:37 09/05/18 23:25 Temperature 97.8 F Pulse Rate 90 93 H 85 Respiratory Rate 20 17 17 Blood Pressure 152/72 H Pulse Oximetry 96 09/06/18 00:00 09/06/18 02:58 09/06/18 04:00 Temperature 98.4 F 98.1 F Pulse Rate 81 88 75 Respiratory Rate 18 16 20 Blood Pressure 151/85 H 137/74 Pulse Oximetry 97 98 09/06/18 08:00 09/06/18 08:07 09/06/18 08:08 Temperature 98.3 F Pulse Rate 74 75 Respiratory Rate 19 20 Blood Pressure 152/74 H Pulse Oximetry 95 97 Intake & Output 09/05/18 09/06/18 09/06/18 18:59 06:59 18:59 Intake Total 760 / 760 788 / 788 Balance 760 / 760 788 / 788 Weight 53 kg Intake: IV 428 / 428 Heparin/D5W 25,000 U/250 mL 25, 78 / 78 000 unit In 250 ml @ Per Protocol IV.CONT TITRATE PRN Rx #:[id number] Azithromycin Inj 500 MG In NS 250 / 250 Inj 250 ML @ 250 mls/hr IV.SIG Q24H [facility] Rx#:[id number] Rocephin Inj 1,000 MG In NS Inj 100 / 100 100 ML @ 200 mls/hr IV.SIG Q24H [facility] Rx#:[id number] Oral 760 / 760 360 / 360 Other: # Voids 2 3 # Incontinent Voids 2 Date of Last Bowel Movement 09/05/18 09/05/18 # Bowel Movements 2 1 Results Procedures completed during hospitalization: No invasive procedures. Labs on day of discharge: Labs from last 24 hours 09/06/18 09/06/18 09/05/18 04:01 04:01 18:15 WBC 8.1 RBC 4.17 Hgb 12.0 Hct 35.3 MCV 84.7 MCH 28.9 MCHC 34.1 RDW 15.7 Plt Count 185 MPV 11.1 H Prelim Diff (Auto) Manual diff required WBC Differential Manual diff final Seg Neuts % (Manual) 75 H Band Neuts % (Manual) 3 Lymphocytes % (Manual) 12 Monocytes % (Manual) 10 H Abs Neuts (Manual) 6.3 Differential Comment . Platelet Estimate Normal Platelet Morphology Enlarged H Ovalocytes 1+ H Keratocytes Occ H APTT 36.5 H D Sodium 144 Potassium 3.2 L Chloride 101 Carbon Dioxide 33.3 H Anion Gap 10 BUN 29 H Creatinine 1.24 H Estimated GFR 53 L Random Glucose 98 Calcium 7.6 L Total Bilirubin 1.1 H AST 22 ALT 27 Alkaline Phosphatase 63 Total Protein 5.8 L D Albumin 2.6 L 09/05/18 11:29 WBC RBC Hgb Hct MCV MCH MCHC RDW Plt Count MPV Prelim Diff (Auto) WBC Differential Seg Neuts % (Manual) Band Neuts % (Manual) Lymphocytes % (Manual) Monocytes % (Manual) Abs Neuts (Manual) Differential Comment Platelet Estimate Platelet Morphology Ovalocytes Keratocytes APTT 70.2 H D Sodium Potassium Chloride Carbon Dioxide Anion Gap BUN Creatinine Estimated GFR Random Glucose Calcium Total Bilirubin AST ALT Alkaline Phosphatase Total Protein Albumin - Impressions ITS Impressions Chest CTA 09/04/18 00:00 CONCLUSION: 1. No evidence of pulmonary embolism. 2. Bilateral pulmonary infiltrates now noted right greater than left with dense consolidation in the right lower lobe. The differential diagnosis includes asymmetric congestive heart failure and pneumonia. 3. Small right pleural effusion again noted. 4. Moderate to severe cardiomegaly. Chest X-Ray 09/04/18 15:41 CONCLUSION: 1. Persistent bibasilar opacification, likely a combination of pleural fluid and airspace disease. 2. Increased hazy opacification of the mid and upper lung, particularly on the right. Venous Doppler Study 09/05/18 00:00 CONCLUSION: 1. The study is negative for bilateral lower extremity deep venous thrombosis. Discharge Plan - Discharge Disposition Patient Disposition: 01 Discharge Home - Discharge Condition Condition: Good - Discharge Order Discharge Orders: Discharge Order (Routine); Ordered 09/06/18 Ordered By: Raghav Arango - Discharge Details Anticipated Discharge Date: 09/06/18 - Physicians Team Primary Care Provider: UNKNOWN, Attending Provider: Raghav Arango Other Providers: Willis Dunn MD
== END 2018-09-06 11:52 | disposition home or self-care (01) ==
LOC: NEPC 15:33 → NEDA 18:42 → N03 19:15 → N04 09-05 15:55
PROVIDERS: ADMIT Internal Medicine; ATTEND Internal Medicine